=== PATIENT | male | born 1965 | race Caucasian/White ===

== ENCOUNTER 2017-05-26 21:37 | Observation (INO) | payer OTHER ==
[~2017-05-26] VITALS: Ht 180.3 cm; Wt 109.8 kg
[~2017-05-26 21:37] MED LIST: ALPR1 PO; Desyrel150 MG PO; Methadone In10 MG/ML; NARCAN4 MG INH
[2017-05-26 22:13] LABS: Source, Urine Clean Catch
[2017-05-26 22:17] LABS: Bilirubin, Urine Neg (Neg); Blood, Urine Neg (Neg); Glucose Qualitative, Urine Neg (Neg); Ketones, Urine Neg (Neg); Leukocyte Esterase, Urine Neg (Neg); Nitrite, Urine Neg (Neg); Protein, Urine Neg (Neg); Specific Gravity, Urine 1.005 (1.003-1.022); Urobilinogen, Urine NORM (Normal)
[2017-05-26 22:19] LABS: Appearance, Urine Clear (Clear); Color, Urine Yellow (P-Yellow)
[2017-05-26 22:32] LABS: U Amphetamine Screen Not Detected; U Barbituate Screen Not Detected; U Benzodiazapine Screen DETECTED; U Buprenorphine Screen Not Detected; U Cannabinoids Screen Not Detected; U Cocaine Screen Not Detected; U Methadone Screen Not Detected; U Methamphetamine Screen Not Detected; U Opiates Screen Not Detected; U Oxycodone Screen Not Detected; U Phencyclidine Screen Not Detected; U Propoxyphene Screen Not Detected
[2017-05-26 22:41] LABS: BASOPHILS ABSOLUTE AUTO 0.02 K/mm3 (0.00-0.23); BASOPHILS PERCENT AUTO 0 % (0-2); EOSINOPHILS ABSOLUTE AUTO 0.32 K/mm3 (0.00-0.68); EOSINOPHILS PERCENT AUTO 4 % (0-6); Hematocrit 42.9 % (37.0-53.0); Hemoglobin 14.5 g/dL (13.5-17.5); IMMATURE GRAN ABSOLUTE AUTO 0.03 K/mm3 (0.00-0.10); IMMATURE GRAN PERCENT AUTO 0 % (0-1); LYMPHOCYTES ABSOLUTE AUTO 2.21 K/mm3 (0.84-5.20); LYMPHOCYTES PERCENT AUTO 28 % (21-46); MONOCYTES ABSOLUTE AUTO 0.83 K/mm3 (0.16-1.47); MONOCYTES PERCENT AUTO 11 % (4-13); Mean Corpuscular HGB 31.4 pg (26.0-34.0); Mean Corpuscular HGB Conc 33.8 g/dL (31.5-36.5); Mean Platelet Volume 10.8 fL (9.1-12.4); NEUTROPHILS ABSOLUTE AUTO 4.44 K/mm3 (1.96-9.15); NEUTROPHILS PERCENT AUTO 56 % (41-73); Platelet Count 256 K/mm3 (150-400); RDW Coefficient Variation 13.8 % (11.7-14.2); RDW Standard Deviation 47.4 fL (35.1-46.3); Red Blood Cell Count 4.62 M/mm3 (4.30-5.90); White Blood Cell Count 7.85 K/mm3 (4.00-11.30)
[2017-05-26 22:42] LABS: Mean Corpuscular Volume 93 fL (80-100)
[2017-05-26 23:17] LABS: Alanine Aminotransfer (ALT/SGP 104 U/L (12-78); Albumin, Blood 3.2 g/dL (3.4-5.0); Albumin/Globulin Ratio 0.7 (0.8-1.8); Alk Phos 71 U/L (50-136); Anion Gap 10 mmol/L (6-16); Aspartate Aminotrans (AST/SGOT 48 U/L (12-37); Bilirubin, Total 0.4 mg/dL (0.1-1.0); Blood Urea Nitrogen 11 mg/dL (8-24); Bun/Creatinine Ratio 11.7 (12.0-20.0); CO2, Blood 25 mmol/L (21-32); Calcium, Blood 9.2 mg/dL (8.5-10.1); Chloride, Blood 103 mmol/L (98-108); Creatinine, Blood 0.94 mg/dL (0.60-1.20); Ethanol (Alcohol), Blood, Med 61 mg/dL; Globulin, Blood 4.9 g/dL (2.2-4.0); Glomerular Filtration Rate >60 (60-); Glucose, Blood 81 mg/dL (70-99); Potassium, Blood 3.8 mmol/L (3.5-5.5); Salicylate <1.7 mg/dL (2.8-20.0); Sodium, Blood 138 mmol/L (136-145); Total Protein, Blood 8.1 g/dL (6.4-8.2)
[2017-05-26 23:27] LABS: Acetaminophen, Random <2.0 ug/mL (10.0-30.0)
== END 2017-05-28 10:06 | disposition home or self-care (01) ==
LOC: ER 21:37 → EOR 21:38
PROVIDERS: Emergency Medicine
DX: T42.4X2A Poisoning by benzodiazepines, intentional self-harm, initial encounter (principal); Z88.8 Allergy status to other drugs, medicaments and biological substances; Z86.73 Personal history of transient ischemic attack (TIA), and cerebral infarction without residual deficits; Z79.891 Long term (current) use of opiate analgesic; Z79.899 Other long term (current) drug therapy
CPT/HCPCS: 36415; 80053; 81003; 85025; 93005; 93010; 96360; 96372; 99285; G0378; G0480; J1200; J1630; J7030

== ENCOUNTER → 2017-06-18 | Outpatient (CLI) | payer OTHER ==
[~2017-06-18] MED LIST changes: +CLON.2 PO
[2017-06-18 16:52] LABS: BASOPHILS ABSOLUTE AUTO 0.04 K/mm3 (0.00-0.23); BASOPHILS PERCENT AUTO 1 % (0-2); EOSINOPHILS PERCENT AUTO 9 % (0-6); Hematocrit 41.2 % (37.0-53.0); Hemoglobin 13.6 g/dL (13.5-17.5); IMMATURE GRAN ABSOLUTE AUTO 0.01 K/mm3 (0.00-0.10); IMMATURE GRAN PERCENT AUTO 0 % (0-1); LYMPHOCYTES ABSOLUTE AUTO 2.02 K/mm3 (0.84-5.20); LYMPHOCYTES PERCENT AUTO 29 % (21-46); MONOCYTES ABSOLUTE AUTO 0.96 K/mm3 (0.16-1.47); MONOCYTES PERCENT AUTO 14 % (4-13); Mean Corpuscular HGB 30.8 pg (26.0-34.0); Mean Corpuscular Volume 93 fL (80-100); Mean Platelet Volume 10.8 fL (9.1-12.4); NEUTROPHILS ABSOLUTE AUTO 3.23 K/mm3 (1.96-9.15); NEUTROPHILS PERCENT AUTO 47 % (41-73); Platelet Count 190 K/mm3 (150-400); RDW Coefficient Variation 13.7 % (11.7-14.2); RDW Standard Deviation 47.2 fL (35.1-46.3); Red Blood Cell Count 4.42 M/mm3 (4.30-5.90); White Blood Cell Count 6.86 K/mm3 (4.00-11.30)
[2017-06-18 17:03] LABS: Alanine Aminotransfer (ALT/SGP 220 U/L (12-78); Albumin, Blood 2.9 g/dL (3.4-5.0); Albumin/Globulin Ratio 0.6 (0.8-1.8); Alk Phos 95 U/L (40-126); Anion Gap 7 mmol/L (6-16); Aspartate Aminotrans (AST/SGOT 221 U/L (12-37); Bilirubin, Total 0.4 mg/dL (0.1-1.0); Blood Urea Nitrogen 12 mg/dL (8-24); Bun/Creatinine Ratio 11.7 (12.0-20.0); CO2, Blood 29 mmol/L (21-32); Calcium, Blood 8.8 mg/dL (8.5-10.1); Chloride, Blood 102 mmol/L (98-108); Creatinine, Blood 1.03 mg/dL (0.60-1.20); Globulin, Blood 5.1 g/dL (2.2-4.0); Glomerular Filtration Rate >60 (60-); Glucose, Blood 96 mg/dL (70-99); Potassium, Blood 3.7 mmol/L (3.5-5.5); Sodium, Blood 138 mmol/L (136-145)
[2017-06-18 17:05] LABS: Troponin I <0.017 ng/mL (0.000-0.040)
== END | disposition home or self-care (01) ==
LOC: LAB EV 16:45 → LAB SHORT 16:45
PROVIDERS: Physician Assistant
DX: R07.9 Chest pain, unspecified (principal)
CPT/HCPCS: 80053; 83880; 84484; 85025; 85379

== ENCOUNTER 2017-06-19 14:09 | Emergency (ER) | payer OTHER ==
[~2017-06-19] VITALS: Ht 180.3 cm; Wt 68.0 kg
[~2017-06-19 14:09] MED LIST changes: -CLON.2 PO
[2017-06-19] MEDS ORDERED: CLON.2 PO (17:28)
== END 2017-06-19 18:41 | disposition left against medical advice (07) ==
LOC: ER 14:09
DX: R07.9 Chest pain, unspecified (principal); F17.200 Nicotine dependence, unspecified, uncomplicated; Z88.6 Allergy status to analgesic agent; Z79.899 Other long term (current) drug therapy; Z86.73 Personal history of transient ischemic attack (TIA), and cerebral infarction without residual deficits; Z86.718 Personal history of other venous thrombosis and embolism
CPT/HCPCS: 93005; 93010; 99283

== ENCOUNTER → 2017-11-15 | Outpatient (CLI) | payer OTHER ==
[~2017-11-15] MED LIST changes: +CLON.2 PO
[2017-11-15 10:32] LABS: U Amphetamine Screen Not Detected; U Barbituate Screen Not Detected; U Benzodiazapine Screen Not Detected; U Buprenorphine Screen DETECTED; U Cannabinoids Screen Not Detected; U Cocaine Screen Not Detected; U Methadone Screen Not Detected; U Methamphetamine Screen Not Detected; U Opiates Screen Not Detected; U Oxycodone Screen Not Detected; U Phencyclidine Screen Not Detected; U Propoxyphene Screen Not Detected
== END ==
LOC: LAB 09:24 → LAB SHORT 09:24
PROVIDERS: Psychiatry & Neurology Psychiatry
DX: Z51.81 Encounter for therapeutic drug level monitoring (principal); Z79.899 Other long term (current) drug therapy

== ENCOUNTER → 2018-08-18 | Outpatient (CLI) | payer OTHER ==
[2018-08-18 16:57] LABS: U Amphetamine Screen DETECTED; U Barbituate Screen Not Detected; U Benzodiazapine Screen DETECTED; U Buprenorphine Screen DETECTED; U Cannabinoids Screen Not Detected; U Cocaine Screen Not Detected; U Methadone Screen Not Detected; U Methamphetamine Screen Not Detected; U Opiates Screen Not Detected; U Oxycodone Screen Not Detected; U Phencyclidine Screen Not Detected; U Propoxyphene Screen Not Detected
== END | disposition home or self-care (01) ==
LOC: LAB 16:22 → LAB SHORT 16:22
PROVIDERS: Psychiatry & Neurology Psychiatry
DX: Z51.81 Encounter for therapeutic drug level monitoring (principal); Z79.899 Other long term (current) drug therapy

== ENCOUNTER → 2019-01-10 | Outpatient (CLI) | payer OTHER ==
[2019-01-10 17:41] LABS: U Amphetamine Screen DETECTED; U Barbituate Screen Not Detected; U Benzodiazapine Screen Not Detected; U Buprenorphine Screen DETECTED; U Cannabinoids Screen Not Detected; U Cocaine Screen Not Detected; U Methadone Screen Not Detected; U Methamphetamine Screen Not Detected; U Opiates Screen Not Detected; U Oxycodone Screen Not Detected; U Phencyclidine Screen Not Detected; U Propoxyphene Screen Not Detected
== END | disposition home or self-care (01) ==
LOC: LAB SHORT 16:44 → LAB 16:44
PROVIDERS: Psychiatry & Neurology Psychiatry
DX: Z51.81 Encounter for therapeutic drug level monitoring (principal); F90.2 Attention-deficit hyperactivity disorder, combined type; Z79.899 Other long term (current) drug therapy
CPT/HCPCS: G0480

== ENCOUNTER 2019-05-30 11:09 | Day surgery (SDC) | payer OTHER ==
[~2019-05-30] VITALS: Ht 180.3 cm; Wt 136.6 kg
[~2019-05-30 11:09] MED LIST changes: +Adderall 20 MG20 MG PO; +CLON1 PO; +Catapres0.2 MG PO; +NARCAN4 MG; +NEURONTIN300 MG PO; +OLAN10 PO; +Promethazine HC50 M1 PO; +TRAZ150T57 PO; +ZOLOFT25 MG PO
== END 2019-05-30 14:10 | disposition home or self-care (01) ==
LOC: ORSCSDS 11:09
PROVIDERS: Internal Medicine Gastroenterology
PROC: 0DJD8ZZ Inspection of Lower Intestinal Tract, Via Natural or Artificial Opening Endoscopic (ICD-10-PCS; principal; 2019-05-30 12:00)
DX: Z12.11 Encounter for screening for malignant neoplasm of colon (principal); Z86.010 Personal history of colon polyps; K64.8 Other hemorrhoids; D18.1 Lymphangioma, any site; F17.210 Nicotine dependence, cigarettes, uncomplicated; B19.20 Unspecified viral hepatitis C without hepatic coma; Z86.73 Personal history of transient ischemic attack (TIA), and cerebral infarction without residual deficits; G40.909 Epilepsy, unspecified, not intractable, without status epilepticus; Z79.899 Other long term (current) drug therapy; E66.01 Morbid (severe) obesity due to excess calories; Z68.41 Body mass index [BMI] 40.0-44.9, adult; Z86.718 Personal history of other venous thrombosis and embolism
CPT/HCPCS: J2250; J2704; J7120

== ENCOUNTER → 2019-06-20 | Outpatient (CLI) | payer OTHER ==
[2019-06-20 18:57] LABS: U Amphetamine Screen Not Detected; U Barbituate Screen Not Detected; U Benzodiazapine Screen Not Detected; U Buprenorphine Screen DETECTED; U Cannabinoids Screen Not Detected; U Cocaine Screen Not Detected; U Methadone Screen Not Detected; U Methamphetamine Screen Not Detected; U Opiates Screen Not Detected; U Oxycodone Screen Not Detected; U Phencyclidine Screen Not Detected; U Propoxyphene Screen Not Detected
== END | disposition home or self-care (01) ==
LOC: LAB SHORT 16:10 → LAB 16:10
PROVIDERS: Psychiatry & Neurology Psychiatry
DX: Z51.81 Encounter for therapeutic drug level monitoring (principal); Z79.899 Other long term (current) drug therapy

== ENCOUNTER 2019-08-27 19:25 | Emergency (ER) | payer OTHER ==
[~2019-08-27] VITALS: Ht 180.3 cm; Wt 112.0 kg
[2019-08-27] MEDS ORDERED: LIDO700A20 TOP (20:43)
== END 2019-08-27 20:52 | disposition home or self-care (01) ==
LOC: ER 19:25
DX: S30.0XXA Contusion of lower back and pelvis, initial encounter (principal); I10 Essential (primary) hypertension; F17.210 Nicotine dependence, cigarettes, uncomplicated; Z88.6 Allergy status to analgesic agent; Z91.041 Radiographic dye allergy status; Z79.899 Other long term (current) drug therapy; Z86.718 Personal history of other venous thrombosis and embolism; Z86.73 Personal history of transient ischemic attack (TIA), and cerebral infarction without residual deficits; W22.8XXA Striking against or struck by other objects, initial encounter
CPT/HCPCS: 72100; 99283-25

== ENCOUNTER → 2019-09-14 | Outpatient (CLI) | payer OTHER ==
[~2019-09-14] MED LIST changes: +LIDO700A20 TOP
[2019-09-14 11:06] LABS: BASOPHILS ABSOLUTE AUTO 0.04 K/mm3 (0.00-0.23); BASOPHILS PERCENT AUTO 1 % (0-2); EOSINOPHILS ABSOLUTE AUTO 0.02 K/mm3 (0.00-0.68); EOSINOPHILS PERCENT AUTO 0 % (0-6); Hematocrit 47.8 % (37.0-53.0); Hemoglobin 16.1 g/dL (13.5-17.5); IMMATURE GRAN ABSOLUTE AUTO 0.04 K/mm3 (0.00-0.10); IMMATURE GRAN PERCENT AUTO 1 % (0-1); LYMPHOCYTES ABSOLUTE AUTO 1.45 K/mm3 (0.84-5.20); LYMPHOCYTES PERCENT AUTO 20 % (21-46); MONOCYTES ABSOLUTE AUTO 0.53 K/mm3 (0.16-1.47); MONOCYTES PERCENT AUTO 7 % (4-13); Mean Corpuscular HGB 33.9 pg (26.0-34.0); Mean Corpuscular HGB Conc 33.7 g/dL (31.5-36.5); Mean Corpuscular Volume 101 fL (80-100); NEUTROPHILS ABSOLUTE AUTO 5.23 K/mm3 (1.96-9.15); NEUTROPHILS PERCENT AUTO 72 % (41-73); RDW Coefficient Variation 14.9 % (11.7-14.2); RDW Standard Deviation 55.9 fL (35.1-46.3); Red Blood Cell Count 4.75 M/mm3 (4.30-5.90); White Blood Cell Count 7.31 K/mm3 (4.00-11.30)
[2019-09-14 11:18] LABS: Alanine Aminotransfer (ALT/SGP 81 U/L (12-78); Albumin, Blood 3.3 g/dL (3.4-5.0); Albumin/Globulin Ratio 0.7 (0.8-1.8); Alk Phos 153 U/L (40-126); Anion Gap 8 mmol/L (6-16); Aspartate Aminotrans (AST/SGOT 88 U/L (12-37); Bilirubin, Total 0.6 mg/dL (0.1-1.0); Blood Urea Nitrogen 19 mg/dL (8-24); CO2, Blood 27 mmol/L (21-32); Calcium, Blood 8.7 mg/dL (8.5-10.1); Chloride, Blood 103 mmol/L (98-108); Creatinine, Blood 0.73 mg/dL (0.60-1.20); Globulin, Blood 4.6 g/dL (2.2-4.0); Glomerular Filtration Rate >60 (60-); Glucose, Blood 115 mg/dL (70-99); Potassium, Blood 5.2 mmol/L (3.5-5.5); Sodium, Blood 138 mmol/L (136-145); Total Protein, Blood 7.9 g/dL (6.4-8.2)
[2019-09-14 11:53] LABS: Platelet Count 130 K/mm3 (150-400)
== END ==
LOC: LAB EV 10:59 → LAB SHORT 10:59
PROVIDERS: General Practice
DX: M79.89 Other specified soft tissue disorders (principal)
CPT/HCPCS: 80053; 83880; 85025

== ENCOUNTER 2020-01-18 17:35 | Inpatient (IN) | payer OTHER ==
[~2020-01-18] VITALS: Ht 180.3 cm; Wt 126.1 kg
[~2020-01-18 17:35] MED LIST changes: -CLON1 PO
[2020-01-18 19:48] LABS: BASOPHILS ABSOLUTE AUTO 0.06 K/mm3 (0.00-0.23); BASOPHILS PERCENT AUTO 1 % (0-2); EOSINOPHILS PERCENT AUTO 1 % (0-6); Hematocrit 43.5 % (37.0-53.0); Hemoglobin 14.4 g/dL (13.5-17.5); IMMATURE GRAN ABSOLUTE AUTO 0.03 K/mm3 (0.00-0.10); IMMATURE GRAN PERCENT AUTO 0 % (0-1); LYMPHOCYTES ABSOLUTE AUTO 2.48 K/mm3 (0.84-5.20); LYMPHOCYTES PERCENT AUTO 29 % (21-46); MONOCYTES PERCENT AUTO 9 % (4-13); Mean Corpuscular HGB 33.1 pg (26.0-34.0); Mean Corpuscular HGB Conc 33.1 g/dL (31.5-36.5); Mean Corpuscular Volume 100 fL (80-100); Mean Platelet Volume 11.8 fL (9.1-12.4); NEUTROPHILS ABSOLUTE AUTO 5.21 K/mm3 (1.96-9.15); NEUTROPHILS PERCENT AUTO 60 % (41-73); Platelet Count 85 K/mm3 (150-400); RDW Coefficient Variation 15.5 % (11.7-14.2); RDW Standard Deviation 58.4 fL (35.1-46.3); Red Blood Cell Count 4.35 M/mm3 (4.30-5.90); White Blood Cell Count 8.68 K/mm3 (4.00-11.30)
[2020-01-18 19:50] LABS: Calcium, Ionized (POC) 1.17 mmol/L (1.10-1.46); Chloride (POC) 99 mmol/L (98-108); Creatinine (POC) 0.8 mg/dL (0.8-1.3); Glucose (ISTAT POC) 191 mg/dL (70-99); Hemoglobin (POC) 15.6 g/dL (13.5-17.5); Potassium (POC) 4.2 mmol/L (3.5-5.5); Sodium (POC) 139 mmol/L (135-148); Total CO2 (POC) 30 mmol/L (21-32)
[2020-01-18 19:59] LABS: International Normalized Ratio 1.14; Prothrombin Time Results 12.1 Sec (9.7-11.5)
[2020-01-18 20:02] LABS: Alanine Aminotransfer (ALT/SGP 134 U/L (12-78); Albumin, Blood 2.7 g/dL (3.4-5.0); Albumin/Globulin Ratio 0.5 (0.8-1.8); Alk Phos 152 U/L (50-136); Anion Gap 1 mmol/L (6-16); Aspartate Aminotrans (AST/SGOT 141 U/L (12-37); Bilirubin, Total 0.8 mg/dL (0.1-1.0); Blood Urea Nitrogen 15 mg/dL (8-24); Bun/Creatinine Ratio 20.4 (12.0-20.0); CO2, Blood 34 mmol/L (21-32); Calcium, Blood 8.6 mg/dL (8.5-10.1); Chloride, Blood 104 mmol/L (98-108); Creatinine, Blood 0.74 mg/dL (0.60-1.20); Ethanol (Alcohol), Blood, Med <3 mg/dL; Globulin, Blood 5.1 g/dL (2.2-4.0); Glomerular Filtration Rate >60 (60-); Glucose, Blood 196 mg/dL (70-99); Potassium, Blood 4.2 mmol/L (3.5-5.5); Sodium, Blood 139 mmol/L (136-145); Total Protein, Blood 7.8 g/dL (6.4-8.2)
[2020-01-18 20:31] LABS: PCO2 Arterial 55.9 mmHg (35-45); PO2 Arterial 93.7 mmHg (80-100); pH Blood Arterial 7.38 (7.35-7.45)
[2020-01-18] MEDS ORDERED: CLON1 PO (20:48)
[2020-01-18] MEDS ORDERED: CLON.5 PO (20:49)
[2020-01-18 21:29] LABS: U Amphetamine Screen DETECTED; U Barbituate Screen Not Detected; U Benzodiazapine Screen Not Detected; U Buprenorphine Screen DETECTED; U Cannabinoids Screen Not Detected; U Cocaine Screen Not Detected; U Methadone Screen Not Detected; U Methamphetamine Screen Not Detected; U Opiates Screen Not Detected; U Oxycodone Screen Not Detected; U Phencyclidine Screen Not Detected; U Propoxyphene Screen Not Detected
[2020-01-18 21:35] LABS: Salicylate <1.7 mg/dL (2.8-20.0)
[2020-01-18 21:37] LABS: Acetaminophen, Random <2.0 ug/mL (10.0-30.0)
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
--- NOTE | 2020-01-18 23:20 | NUR ---
DR EID AT BEDSIDE, NOTIFIED OF PT'S BP, NOTIFIED OF RASH TO LEFT GROIN, HOME RX DISCUSSED FOLLOWS: AMPHETAMINE/DEXTROAMPHETAMINE INSTRUCTIONS STATE 1 TAB PO TID FILLED ON 12/30/2019, TOTAL QUANTITY 90 TABLETS, OF WHICH ONLY 2 REMAIN IN CONTAINER WELL A 2 INCH PIECE OF PLASTIC STRAW. APPROXIMATELY 33 TABLETS MISSING CLONIDINE 0.2 MG TAB, INSTRUCTIONS STATE 1 TAB BID, LAST FILLED ON 12/31/2019 TOTAL QUANTITY 60 TABLETS, NONE REMAIN IN CONTAINER. APPROXIMATELY 24 TABLETS MISSING. PROMETHAZINE 50 MG TAB, INSTRUCTIONS STATE 1 TAB DAILY NEEDED FOR NAUSEA, LAST FILLED ON 01/02/2020 TOTAL QUANTITY 30, NONE REMAIN IN CONTAINER. APPROXIMATELY 14 TABLETS MISSING. GABAPENTIN 300 MG CAPSULES, INSTRUCTIONS STATE 3 CAPSULES TWICE DAILY, LAST FILLED ON 12/15/2019 TOTAL QUANTITY 180, NONE REMAIN IN CONTAINER HOWEVER THIS QUANTITY WOULD HAVE BEEN COMPLETE ON 01/14/2020. BUPRENORPHINE/NALOXONE 2-0.5 TABLETS, INSTRUCTIONS STATE ONE TABLET SUBLINGUAL TWICE DAILY, LAST FILLED ON 01/08/2020 TOTAL QUANTITY 28, 5 LEFT IN CONTAINER. APPROXIMATELY 3 TABLETS MISSING. BUPRENORPHINE/NALOXONE 8-2 TABLETS, INSTRUCTIONS STATE ONE TABLE SUBLINGUAL TWICE DAILY. LAST FILLED ON 01/08/2020, TOTAL QUANTITY 28 TABLETS, NONE LEFT IN CONTAINER, APPROXIMATELY 8 TABLETS MISSING. PLAN TO NOTIFY POISON CONTROL DISCUSSED WITH DR EID.
--- NOTE | 2020-01-18 23:45 | NUR ---
OFFICERS FROM [employer] ARRIVE TO PT'S ROOM WITH WARRANT FOR PT BLOOD AND URINE. COPY OF WARRANT TO CHART, YARN EXAMINER SKEINS RAJI FRANCIS AND NURSING CARDIOLOGY CLINICAL NURSE SPECIALIST LAURA MUNOZ NOTIFIED. URINE PROVIDED FROM EDWARDS CATHETER. LAB TO BEDSIDE FOR BLOOD DRAW. PT REMAINS NONRESPONSIVE AT THIS TIME. OFFICERS COLLECT PT'S EMPTY RX BOTTLES FOR CLONIDINE, PROMETHAZINE, GABAPENTIN, BUPRENORPHINE/NALOXONE 8-2, AND RX CONTAINERS OF BUPRENORPHINE/NALOXONE 2-0.5 OF WHICH THERE ARE 5 TABLETS LEFT IN CONTAINER, AND ADDERALL 20 MG OF WHICH THERE ARE 2 TABLETS LEFT IN CONTAINER.
--- NOTE | 2020-01-19 00:40 | NUR ---
CONTACTED POISON CONTROL, DISCUSSED PT RX DISCREPANCIES WELL PT HX OF MULTIPLE SUICIDE ATTEMPTS BY OVERDOSE. NO CHANGES TO PLAN OF CARE RECOMMENDED AT THIS TIME, POISON CONTROL WILL FOLLOW UP IN AM.
[2020-01-19] MEDS ORDERED: SUBOXONE 8 MG-1 EACH SL (01:04)
[2020-01-19] MEDS ORDERED: SUBOXONE 8 MG-1 EACH (01:05)
[2020-01-19] MEDS ORDERED: AMPDEX10CR PO (01:05)
[2020-01-19] MEDS ORDERED: Catapres0.2 MG PO (01:06)
[2020-01-19] MEDS ORDERED: PROM25 PO (01:06)
[2020-01-19] MEDS ORDERED: GABA300 PO (01:07)
[2020-01-19 04:09] LABS: BASOPHILS ABSOLUTE AUTO 0.02 K/mm3 (0.00-0.23); BASOPHILS PERCENT AUTO 0 % (0-2); EOSINOPHILS PERCENT AUTO 0 % (0-6); Hematocrit 47.5 % (37.0-53.0); Hemoglobin 15.9 g/dL (13.5-17.5); IMMATURE GRAN ABSOLUTE AUTO 0.02 K/mm3 (0.00-0.10); IMMATURE GRAN PERCENT AUTO 0 % (0-1); LYMPHOCYTES ABSOLUTE AUTO 0.92 K/mm3 (0.84-5.20); LYMPHOCYTES PERCENT AUTO 11 % (21-46); MONOCYTES ABSOLUTE AUTO 0.04 K/mm3 (0.16-1.47); MONOCYTES PERCENT AUTO 1 % (4-13); Mean Corpuscular HGB 33.1 pg (26.0-34.0); Mean Corpuscular HGB Conc 33.5 g/dL (31.5-36.5); Mean Corpuscular Volume 99 fL (80-100); Mean Platelet Volume 11.9 fL (9.1-12.4); NEUTROPHILS ABSOLUTE AUTO 7.06 K/mm3 (1.96-9.15); NEUTROPHILS PERCENT AUTO 88 % (41-73); Platelet Count 90 K/mm3 (150-400); RDW Coefficient Variation 15.2 % (11.7-14.2); RDW Standard Deviation 56.5 fL (35.1-46.3); Red Blood Cell Count 4.81 M/mm3 (4.30-5.90); White Blood Cell Count 8.06 K/mm3 (4.00-11.30)
[2020-01-19 04:26] LABS: Alanine Aminotransfer (ALT/SGP 146 U/L (12-78); Albumin, Blood 2.9 g/dL (3.4-5.0); Albumin/Globulin Ratio 0.5 (0.8-1.8); Alk Phos 154 U/L (50-136); Anion Gap 5 mmol/L (6-16); Aspartate Aminotrans (AST/SGOT 161 U/L (12-37); Bilirubin, Total 0.9 mg/dL (0.1-1.0); Blood Urea Nitrogen 16 mg/dL (8-24); Bun/Creatinine Ratio 20.9 (12.0-20.0); CO2, Blood 28 mmol/L (21-32); Calcium, Blood 8.9 mg/dL (8.5-10.1); Chloride, Blood 105 mmol/L (98-108); Creatinine, Blood 0.76 mg/dL (0.60-1.20); Globulin, Blood 5.4 g/dL (2.2-4.0); Glomerular Filtration Rate >60 (60-); Glucose, Blood 275 mg/dL (70-99); Potassium, Blood 3.9 mmol/L (3.5-5.5); Sodium, Blood 138 mmol/L (136-145); Total Protein, Blood 8.3 g/dL (6.4-8.2)
--- NOTE | 2020-01-19 05:45 | NUR ---
PT REMAINS UNRESPONSIVE THIS AM, PROPOFOL HAS BEEN TITRATED DOWN THROUGHOUT SHIFT TO 10 MCG/KG/MIN OF THIS TIME, PUPILS REMAIN AT 2, EQUAL AND REACTIVE. VENT SETTINGS REMAIN AC 14, TV 500, PEEP 5, FIO2 HAS BEEN TITRATED DOWN THROUGHOUT SHIFT TO 40%, SATS MAINTAINING MID 90S, RESP RATE 18-20, CRACKLES IN RIGHT BASE ON INITIAL ASSESSMENT, CLEAR THROUGHOUT AT 0400 ASSESSMENT. SINUS RHYTHM CONTINUES WITH INTERMITTENT PVCS, RATE HIGH 50S TO LOW 60S, PRESSURE IMPROVED FOLLOWING HYDRALAZINE ADMIN X 1. POISON CONTROL CONTINUES TO FOLLOW DUE TO HIGH POSSIBILITY OF OVERDOSE. MINIMAL OUTPUT FROM OG TUBE, ABD REMAINS SOFT WITH HYPOACTIVE BOWEL TONES. TEMP PROBE EDWARDS REMAINS IN PLACE DRAINING CLEAR SAIRA URINE TO GRAVITY.
--- NOTE | 2020-01-19 07:30 | NUR ---
ASSUMED CARE RECIEVED REPORT FROM SALVADOR LARSON. PT IS IN BED INTUBATED WITH 8.0 ETT, 27 AT THE LIP. VENT SETTING ARE AC 14/500/5/40%. SEDATED WITH PROPOFOL AT 10 MCG/KG/MIN, AND HAS NS INFUSING AT 75 ML/HR. HE HAS AN OG TUBE HOOKED UP TO LIS, AND A PATENT EDWARDS DRAINING YELLOW/SAIRA URINE. HE HAS A CVC IN HIS RIGHT IJ, AND THE SITE LOOKS CDI. HE IS TOLERATING THE VENT WELL. BED IS LOW AND LOCKED. NO FAMILY AT BEDSIDE.
--- NOTE | 2020-01-19 10:19 | NUR ---
PT UNABLE TO ANSWER QUESTIONS, SO MY SUICIDE REASSESSMENT IS POTENTIALLY NOT ACCURATE AT THE MOMENT. THE INTERVENTION FORCES YOU TO ANSWER THE QUESTION WITH A DEFINITIVE YES OR NO, BUT MY PT IS CURRENTLY INTUBATED AND SEDATED AND UNABLE TO ADEQUETLY COMMUNICATE WITH ME. SUICIDE REASSESSMENT WILL HAVE TO BE HELD OFF UNTIL THE PATIENT CAN COMMUNICATE WITH US.
--- NOTE | 2020-01-19 10:56 | NUR ---
POISON CONTROL PC RECOMMENDS RE-CHECKING LFT'S AT 1400, HOLD OFF ON NAC GTT. WILL CHECK BACK LATER FOR LAB RESULTS.
--- NOTE | 2020-01-19 11:14 | NUR ---
UPDATE/SEDATION VACATION FROM [id number] PT WAS OFF PROPOFOL. AFTER ABOUT 15 MINUTES PT STARTED TO WAKE UP, AND WAS RESPONDING TO VERBAL STIMULI, HE WAS ABLE TO SQUEEZE MY FINGERS UPON COMMAND, AND LET AGO (DELAYED RESPONSE), HE WIGGLED HIS TOES, AND OPENED HIS EYES, AGAIN UPON COMMAND. HE DID, HOWEVER, BECOME INCREASINGLY AGITATED. PT WAS PULLING ON RESTRAINTS, JERKING AROUND IN THE BED, AND TRYING REALLY HARD TO SPEAK. HE WAS COUGHING AND GAGGING ON THE TUBE. HIS RESPIRATORY RATE WENT UP IN THE 40's. AT 1100 I THEN TURNED BACK ON THE PROPOFOL TO 10 MCG/KG/MIN. IT TOOK AROUND 10-14 MINUTES BUT THE PT IS NOW CALM FROM SEDATION, BUT IS STILL AROUSABLE TO VERBAL/NOXIOUS STIMULI. IT IS DIFFICULT FOR HIM TO OPEN HIS EYES WITH THE SEDATION. WHEN HE WAS FIGHTING THE VENT AND RESTRAINTS, I WAS TALKING TO HIM AND LETTING HIM KNOW WHAT HAD HAPPENED, WHERE HE WAS, WHAT WE WERE DOING, AND THAT HE WAS CURRENTLY DOING OKAY. UNKNOWN IF HE WAS LISTENING TO WHAT I WAS TRYING TO SAY. BED LOW AND LOCKED. CALL LIGHT WITHIN REACH.
[2020-01-19 11:35] LABS: Creatine Kinase MB 1.8 ng/mL (0.0-3.6); Creatine Kinase MB Index 2.7 (0.0-4.0)
[2020-01-19 14:34] LABS: Albumin, Blood 2.5 g/dL (3.4-5.0); Albumin/Globulin Ratio 0.5 (0.8-1.8); Bilirubin, Direct 0.4 mg/dL (0.0-0.3); Bilirubin, Indirect 0.3 mg/dL (0.1-0.7); Bilirubin, Total 0.7 mg/dL (0.1-1.0); Globulin, Blood 4.8 g/dL (2.2-4.0); Total Protein, Blood 7.3 g/dL (6.4-8.2)
--- NOTE | 2020-01-19 17:45 | NUR ---
SHIFT SUMMARY PT REMAINS INTUBATED ON SPONTANEOUS MODE REQUIRING PRESSURE SUPPORT OF 12/5, WITH 40% FIO2. PT HAS BEEN ADEQUETLY SEDATED ON PROPOFOL OF 15 MCG/KG/MIN, AND WE RECENTLY ADDED PRECEDEX AT 0.2 MCG/KG/HR. A BANANA BAG IS INFUSING AT 200 ML/HR (THE NORMAL SALINE IS ON STAND BY). HIS CVC IN HIS RIGHT IJ LOOKS WNL. HE HAS SCDs ON BILATERAL CALVES, A PATENT EDWARDS DRAINING SAIRA URINE, AND AN OG TUBE HOOKED UP TO LIS. PT STARTED SHIFT TODAY COOL, AND THEN HAD A LOW GRADE FEVER BUT NOW IS CURRENTLY 98.2 F. PT IS AROUSABLE TO LOUD VOICE WHEN SEDATED, AND NOXIOUS STIMULI, SEE PREVIOUS NOT ON SEDATION VACATION FOR MORE ACCURATE NEURO ASSESSMENT. VITALS HAVE BEEN STABLE ALL DAY, HR HAS BEEN IN THE 60s, ADEQUATE BP, AND HE MAINTAINED SATS AT 93%+. BED LOW AND LOCKED.
--- NOTE | 2020-01-19 20:00 | NUR ---
ASSUMED CARE OF PT AT 1915. REPORT RECEIVED AT BEDSIDE. PT PRESENTS IN BED. VENTED PS 12/5 WITH 40 PERCENT FIO2. PT CURRENTLY ON PRECEDEX DRIP AT 0.2 MCG'S AND PROPOFOL AT 15 MCG'S. PT DOES AWAKEN WITH TURN AND TAKES AWHILE FOR HIM TO RETURN TO RESTING. WILL REVIEW CHART AND PLAN OF CARE FOR THIS PT.
--- NOTE | 2020-01-20 | NUR ---
FULL BEDBATH DONE FOR THIS PT. DOES RESIST WITH TURNS AND CARE. INCREASED PROPOFOL TO 20 MCG'S WITH SOME IMPROVEMENT. RT WAS IN EARLIER AND OBTAINED SPUTUM SAMPLE FOR LAB. PT CONTINUES ON SAME VENT SETTINGS. WILL CONTINUE TO MONITOR PT.
--- NOTE | 2020-01-20 04:00 | NUR ---
DID INCREASE PT'S PROPOFOL TO 25 MCG'S, AND PLACE PRECEDEX ON STANDBY. AT THIS POINT, PT IS MAINTAINING SAS 3-4. WILL CONTINUE TO ASSESS. DOES AWAKEN DURING TURNS.
[2020-01-20 05:31] LABS: BASOPHILS ABSOLUTE AUTO 0.03 K/mm3 (0.00-0.23); BASOPHILS PERCENT AUTO 0 % (0-2); EOSINOPHILS ABSOLUTE AUTO 0.01 K/mm3 (0.00-0.68); EOSINOPHILS PERCENT AUTO 0 % (0-6); Hematocrit 43.9 % (37.0-53.0); Hemoglobin 14.6 g/dL (13.5-17.5); IMMATURE GRAN ABSOLUTE AUTO 0.08 K/mm3 (0.00-0.10); IMMATURE GRAN PERCENT AUTO 1 % (0-1); LYMPHOCYTES ABSOLUTE AUTO 3.05 K/mm3 (0.84-5.20); LYMPHOCYTES PERCENT AUTO 19 % (21-46); MONOCYTES ABSOLUTE AUTO 0.87 K/mm3 (0.16-1.47); MONOCYTES PERCENT AUTO 5 % (4-13); Mean Corpuscular HGB 33.3 pg (26.0-34.0); Mean Corpuscular HGB Conc 33.3 g/dL (31.5-36.5); Mean Corpuscular Volume 100 fL (80-100); NEUTROPHILS ABSOLUTE AUTO 12.45 K/mm3 (1.96-9.15); NEUTROPHILS PERCENT AUTO 75 % (41-73); Platelet Count 91 K/mm3 (150-400); RDW Coefficient Variation 15.7 % (11.7-14.2); RDW Standard Deviation 58.7 fL (35.1-46.3); Red Blood Cell Count 4.39 M/mm3 (4.30-5.90); White Blood Cell Count 16.49 K/mm3 (4.00-11.30)
[2020-01-20 06:02] LABS: Alanine Aminotransfer (ALT/SGP 97 U/L (12-78); Albumin, Blood 2.4 g/dL (3.4-5.0); Albumin/Globulin Ratio 0.5 (0.8-1.8); Alk Phos 119 U/L (50-136); Anion Gap 3 mmol/L (6-16); Aspartate Aminotrans (AST/SGOT 74 U/L (12-37); Bilirubin, Total 0.6 mg/dL (0.1-1.0); Blood Urea Nitrogen 16 mg/dL (8-24); Bun/Creatinine Ratio 22.2 (12.0-20.0); CO2, Blood 29 mmol/L (21-32); Calcium, Blood 8.3 mg/dL (8.5-10.1); Chloride, Blood 108 mmol/L (98-108); Creatinine, Blood 0.72 mg/dL (0.60-1.20); Globulin, Blood 4.8 g/dL (2.2-4.0); Glomerular Filtration Rate >60 (60-); Glucose, Blood 137 mg/dL (70-99); Magnesium, Blood 2.2 mg/dL (1.6-2.4); Phosphorus, Blood 2.6 mg/dL (2.5-4.9); Potassium, Blood 4.4 mmol/L (3.5-5.5); Sodium, Blood 140 mmol/L (136-145); Total Protein, Blood 7.2 g/dL (6.4-8.2)
--- NOTE | 2020-01-20 06:38 | NUR ---
NO CHANGES TO NOTE FROM PREVIOUS ASSESSMENT. HAVE SUCTIONED PT PER ETT SOME DURNING SHIFT WITH ONLY SMALL AMOUNT OF WHITISH SECRETIONS. WILL CONTINUE TO MONITOR PT, AND WILL REPORT OFF TO ONCOMING RN.
--- NOTE | 2020-01-20 07:51 | NUR ---
ASSUMED CARE RECIEVED REPORT FROM SALVADOR LARA. PT IS LAYING IN BED INTUBATED WITH 8.0 ETT, 27 @ LIP. VENT SETTINGS REMAIN SPONTANEOUS, WITH PRESSURE SUPPORT 12/5, FIO2 40%. PROPOFOL INFUSING AT 25 MG/KG/MIN. PT HAS PATENT EDWARDS DRAINING SAIRA/ORANGE URINE. HE HAS SCDs ON BILATERAL CALVES, AND HAS AN OG TUBE HOOKED TO LIS. BED IS LOW AND LOCKED. PT IS CALM AND SEDATED, YET MAKING ADEQUATE TIDAL VOLUMES AND MINUTE VENTILATION ON VENT.
--- NOTE | 2020-01-20 08:11 | NUR ---
PT UNABLE TO SPEAK FOR SELF AND ANSWER QUESTIONS REGARDING SUICIDAL IDEATIONS. UNABLE TO CHART AN ACCURATE ANSWER TO THE SUICIDE REASSESSMENT.
--- NOTE | 2020-01-20 12:54 | NUR ---
UPDATE PT'S HEART RATE HAS BEEN IMPROVING SINCE I HAVE TITRATED DOWN THE PRECEDEX. BP HAS BEEN STABLE TO SLIGHTLY ELEVATED, AND THE LAST HOUR PT HAS BEEN ADEQUETLY SEDATED ON 30 MCG/KG/MIN OF PROPOFOL AND 0.2 MCG/KG/HR OF PRECEDEX. TEMPERATURE HAS GONE DOWN PER MONITOR TO 95-96 RANGE (CORE TEMP FROM EDWARDS), BUT PT FEELS WARM, AND HAS A TEMPORAL TEMP OF 97.1. I PLACED WARM BLANKETS ON HIM JUST IN CASE EARLIER TODAY. POISON CONTROL FOLLOWED UP AND HAVE NO FURTHER RECOMMENDATIONS, AND WILL CHECK BACK IN TOMORROW.
--- NOTE | 2020-01-20 18:24 | NUR ---
SHIFT SUMMARY PT REMAINS ON AC14/500/5/40% VENT SETTINGS, SECOND HALF OF THE DAY PT HAS BEEN ADEQUETLY SEDATED ON PROPOFOL OF 30 MCG/KG/MIN AND NO PRECEDEX. HR IS IN THE 50s, BUT PT HAS STRONG PULSES, CAP REFIL < 3s, GOOD PLETH ON SPO2 WAVEFORM, AND WARM EXTREMETIES. STABLE BP, SPO2, AND TEMPERATURE HAS BEEN IMPROVING. PT HAS SCDs ON, HE HAS A PATENT EDWARDS DRAINING TEA COLORED URINE THAT HAS HAD SOME CLOTS IN IT - NO EVIDENCE OF BLEEDING AT THIS POINT, NO RED/PINK. PT STARTED ON ROCEPHIN TODAY. RESPIRATORY THERAPIST, [place], SAID HE SUCTIONED OUT SOME BLOODY-TINGED SPUTUM FROM ETT. OTHER THAN THAT HE HAS HAD SCANT SECRETIONS FROM [facility]. HE HAS HAD 750 ML OF DARK BROWN/GREEN DRAINAGE FROM OG TUBE (SINCE HE WAS INTUBATED ON 01/18/20), BED LOW AND LOCKED. CALL LIGHT WITHIN REACH.
--- NOTE | 2020-01-20 20:00 | NUR ---
ASSUMED CARE OF PT AT 1915. REPORT RECEIVED AT BEDSIDE. PT PRESENTS IN BED. VENTED - AC 14, Tv 500, PEEP 5, FIO2 40%. PT NOTED TO HAVE SOME HYPOTENSION. PT RESTLESS. 250 ML NORMAL SALINE BOLUS GIVEN. WHICH IMPROVES PRESSURES SOME. WILL REVIEW CHART AND PLAN OF CARE FOR THIS PT.
--- NOTE | 2020-01-20 23:00 | NUR ---
CALL MADE TO DR CASTANON EARLIER CONCERNING PT'S AGITATION AND POOR RESPONSE TO 50 MCG FENTANYL, INCREASE IN PROPOFOL, AND 2 MG VERSED. CONCERN FOR INCREASING NEED FOR SEDATION WITH DROPS IN BLOOD PRESSURES. ORDERS HAVE BEEN RECEIVED. PT'S BLOOD PRESSURES HAVE STABILIZED. INCREASE IN PROPOFOL TO 50 MCG'S AND FENTANYL PHARMACY INFORMATICS SPECIALIST STARTED AT 50 MCG'S PER HOUR BASAL. PT HAS BEEN TOLERATING VENT MUCH BETTER. HAS EARLIER TRIED TO GET HIMSELF OUT OF BED WITHOUT REGARD TO HIS OWN SAFETY OR THE FACT HE WAS INTUBATED. HAVE OPENED CURTAINS TO ROOM FULL AND LIGHTS LEFT ON SOAS TO PROVIDE BETTER VISUALIZATION OF PT. WILL CONTINUE TO MONITOR.
[2020-01-21 01:10] LABS: HBSAG SCREEN Positive (Negative); HEP A AB, IGM Negative (Negative); HEP B CORE AB, IGM Negative (Negative); HEP C VIRUS AB >11.0 (0.0-0.9)
--- NOTE | 2020-01-21 02:30 | NUR ---
HAVE NEEDED TO INCREASE SEDATION - PROPOFOL TO 50 MCG'S/HOUR SECONDARY TO PT'S POOR VENT TOLERANCE. PT HAS GOOD URINE OUTPUT AFTER ALBUMIN AND BOLUS OF NORMAL SALINE. BLOOD PRESSURES HAVE REMAINED MILDLY ELEVATED. TOLERATING TUBE FEEDING WELL. WILL CONTINUE TO MONITOR.
[2020-01-21 04:08] LABS: BASOPHILS ABSOLUTE AUTO 0.02 K/mm3 (0.00-0.23); BASOPHILS PERCENT AUTO 0 % (0-2); EOSINOPHILS ABSOLUTE AUTO 0.07 K/mm3 (0.00-0.68); EOSINOPHILS PERCENT AUTO 1 % (0-6); Hematocrit 38.7 % (37.0-53.0); Hemoglobin 12.7 g/dL (13.5-17.5); IMMATURE GRAN ABSOLUTE AUTO 0.02 K/mm3 (0.00-0.10); IMMATURE GRAN PERCENT AUTO 0 % (0-1); LYMPHOCYTES ABSOLUTE AUTO 3.08 K/mm3 (0.84-5.20); LYMPHOCYTES PERCENT AUTO 28 % (21-46); MONOCYTES ABSOLUTE AUTO 0.74 K/mm3 (0.16-1.47); MONOCYTES PERCENT AUTO 7 % (4-13); Mean Corpuscular HGB 33.2 pg (26.0-34.0); Mean Corpuscular HGB Conc 32.8 g/dL (31.5-36.5); Mean Corpuscular Volume 101 fL (80-100); Mean Platelet Volume 11.6 fL (9.1-12.4); NEUTROPHILS ABSOLUTE AUTO 7.08 K/mm3 (1.96-9.15); NEUTROPHILS PERCENT AUTO 64 % (41-73); Platelet Count 71 K/mm3 (150-400); RDW Standard Deviation 60.5 fL (35.1-46.3); Red Blood Cell Count 3.82 M/mm3 (4.30-5.90); White Blood Cell Count 11.01 K/mm3 (4.00-11.30)
[2020-01-21 04:24] LABS: Alanine Aminotransfer (ALT/SGP 67 U/L (12-78); Albumin, Blood 3.1 g/dL (3.4-5.0); Albumin/Globulin Ratio 0.9 (0.8-1.8); Alk Phos 86 U/L (50-136); Anion Gap 4 mmol/L (6-16); Aspartate Aminotrans (AST/SGOT 61 U/L (12-37); Bilirubin, Total 0.7 mg/dL (0.1-1.0); Blood Urea Nitrogen 16 mg/dL (8-24); Bun/Creatinine Ratio 19.8 (12.0-20.0); CO2, Blood 29 mmol/L (21-32); Calcium, Blood 7.9 mg/dL (8.5-10.1); Chloride, Blood 111 mmol/L (98-108); Creatinine, Blood 0.81 mg/dL (0.60-1.20); Globulin, Blood 3.6 g/dL (2.2-4.0); Glomerular Filtration Rate >60 (60-); Glucose, Blood 123 mg/dL (70-99); Magnesium, Blood 2.1 mg/dL (1.6-2.4); Phosphorus, Blood 2.4 mg/dL (2.5-4.9); Potassium, Blood 3.9 mmol/L (3.5-5.5); Sodium, Blood 144 mmol/L (136-145); Total Protein, Blood 6.7 g/dL (6.4-8.2)
--- NOTE | 2020-01-21 04:50 | NUR ---
SEDATION VACATION BEGUN AND PT BECOMES VERY AGITATED AND ATTEMPTING TO GET OUT OF BED. WAS VERY UNDIRECTABLE. PT REQUIRED SEDATION TO BE RESTARTED. HAVE NEEDED TO INCREASE PROPOFOL TO 60 MCG'S. PT CURRENTLY WITH SAS 3-4. NO LONGER ATTEMPTING TO GET HIS LEGS OUT OF BED. NO S/S PAIN OR DISTRESS. WILL CONTINUE TO MONITOR PT, AND WILL REPORT OFF TO ONCOMING RN.
--- NOTE | 2020-01-21 07:26 | NUR ---
ASSUMED CARE RECIEVED REPORT FROM SALVADOR LARA AT BEDSIDE. PT INTUBATED WITH 8.0 ETT, 27 AT LIP. VENT SETTINGS ARE AC 14/500/5/40%. PROPOFOL IS INFUSING AT 60 MCG/KG/MIN, AND PT HAS NS INFUSING AT 75 ML/HR. BP IS STABLE AT 139/81, 98. HE IS IN SINUS RHYTHM, RATE IN THE 70's. AFEBRILE, SATS AT 93%. SCDs ON BILATERAL CALVES. SWB RESTRAINTS SECURED TO PT AND BED. EDWARDS PATENT DRAINING YELLOW URINE. VITAL HIGH PROTEIN, TUBE FEEDING, INFUSING VIA OG TUBE AT GOAL RATE OF 40 ML/HR WITH 30 ML Q4H WATER FLUSHES. HE ALSO HAS A FENTANYL REIMBURSEMENT AUDITOR PUMP INFUSING AT 50 MCG/HR. BED LOW AND LOCKED. CALL LIGHT WITHIN REACH.
--- NOTE | 2020-01-21 10:02 | NUR ---
UPDATE PT APPEARED TO HAVE AN INTERMITTENT CUFF LEAK IN ETT. RT CALLED AND CAME TO ROOM AND FIXED IT. BANANA BAG IS NOW INFUSING AT 200 ML/HR, NORMAL SALINE AT 75 ML/HR ON HOLD FOR TIME BEING (TILL BANANA BAG IS OUT). PT HAVING THICK, WHYTE SECRETIONS FROM INLINE SUCTIONING CATHETER.
--- NOTE | 2020-01-21 12:13 | NUR ---
UNABLE TO ACCURATELY ANSWER THE SUICIDE REASSESSMENT INTERVENTION PT IS UNABLE TO ANSWER QUESTIONS.
--- NOTE | 2020-01-21 17:38 | NUR ---
SHIFT SUMMARY PT ON VENT, AC14/500/5/45%, PRODUCING THICK WHYTE SECRETIONS VIA ETT (MODERATE AMOUNT), CULTURE WAS SENT TODAY. PT ON MORE ANTIBIOTICS TODAY: ZOSYN AND VANC. HE IS SEDATED WITH PROPOFOL, WHICH HAS BEEN 45-60 MCG/KG/MIN, CURRENTLY BACK UP TO 60. FENTANYL PRECISION FARMING COORDINATOR HAS BEEN INFUSING CONTINUOUSLY AT 50MCG/HR. HE HAD ONE EVENT OF WAKING UP AND BECOMING QUITE AGITATED - PULLING ON RESTRAINTS, AND FIGHTING THE VENT. THIS WAS WHEN THE PROPOFOL WAS AT 45 MCG/KG/MIN AND AFTER DOING ORAL CARE + REPOSITIONING. TUBE FEEDING IS VITAL HIGH PROTEIN, INFUSING AT GOAL, 40 ML/HR, VIA OG TUBE. RESIDUALS HAVE BEEN 30-20-40 ML OF FORMULA/BILE. EDWARDS IS PATENT AND DRAINING MORE OF AN ORANGE/YELLOW URINE, OPPOSED TO YESTERDAY's DARK TEA COLORED URINE THAT CONTAINED CLOTS. NO CLOTS IN EDWARDS BAG TODAY THAT I HAVE SEEN. HE GOT A BANANA BAG TODAY, A FEW HOURS OF NS INFUSING AT 75 ML/HR, ZOSYN, AND VANCOMYCIN. I GOT THE NS DC'd D/T THE FACT HE HAS HAD A LOT OF INTAKE FROM IVF. HIS LUNGS, HOWEVER, SOUND BETTER THAN THIS MORNING, LESS WHEEZY, AND MORE CLEAR. DIMINISHED IN THE BASES AND IT APPEARS TO HAVE SOME COARSENESS ON THE LEFT SIDE. BED LOW AND LOCKED.
--- NOTE | 2020-01-21 19:05 | NUR ---
ASSUMED CARE REPORT AND BEDSIDE ROUNDING WITH RAQUEL FRANCO AT 1855. ASSUMED PT CARE. PT SEDATED AND INTUBATED, SETTINGS 14/500/5/45%, FARIDA WELL, SATS >90%. PT LUNG SOUNDS COARSE. BILATERAL SOFT WRIST RESTRAINTS NOTED. PT HAS QUAD LUMEN CENTRAL LINE TO RIGHT IJ, DRESSING C/D/I. HAS PROPOFOL INFUSING @ 55MCG/KG/MIN, NS @ KVO, ZOSYN @ 12.5ML/HR. OG TUBE NOTED, VITAL HIGH PROTEIN INFUSING @ 40ML/HR. BOWEL SOUNDS HYPOACTIVE. PATENT TEMP EDWARDS DRAINING GREENISH YELLOW URINE. PULSES STRONG AND EQUAL. SKIN RUSTY, DRESSINGS NOTED TO BILATERAL FA (FOAM), C/D/I. PT IN SR, HR 60'S. BP STABLE. EXT FLOATED ON PILLOWS. PUPILS 4MM AND BRISK. SEE FULL SHIFT ASSESSMENT.
--- NOTE | 2020-01-21 20:00 | NUR ---
UNABLE TO REASSESS SI DUE TO SEDATION AND INTUBATION.
--- NOTE | 2020-01-22 | NUR ---
UNABLE TO ASSESS SUICIDE QUESTIONS DUE TO INTUBATION AND SEDATION
--- NOTE | 2020-01-22 01:43 | NUR ---
PROVIDER UPDATE CALLED DR CASTANON RE PT INCREASE OXYGENATION NEEDS, EXPLAINED ATTEMPTED INTERVENTIONS (SUCTIONING, PRN NEBS, REPOSITIONING, LAVAGE). VERBAL ORDER RECEIVED TO INCREASE PT PEEP UP TO 10 NEEDED.
[2020-01-22 04:59] LABS: BASOPHILS ABSOLUTE AUTO 0.03 K/mm3 (0.00-0.23); BASOPHILS PERCENT AUTO 0 % (0-2); EOSINOPHILS ABSOLUTE AUTO 0.09 K/mm3 (0.00-0.68); EOSINOPHILS PERCENT AUTO 1 % (0-6); Hematocrit 39.2 % (37.0-53.0); Hemoglobin 12.9 g/dL (13.5-17.5); IMMATURE GRAN ABSOLUTE AUTO 0.07 K/mm3 (0.00-0.10); IMMATURE GRAN PERCENT AUTO 1 % (0-1); LYMPHOCYTES ABSOLUTE AUTO 1.61 K/mm3 (0.84-5.20); LYMPHOCYTES PERCENT AUTO 14 % (21-46); MONOCYTES ABSOLUTE AUTO 0.62 K/mm3 (0.16-1.47); MONOCYTES PERCENT AUTO 5 % (4-13); Mean Corpuscular HGB 33.5 pg (26.0-34.0); Mean Corpuscular HGB Conc 32.9 g/dL (31.5-36.5); Mean Corpuscular Volume 102 fL (80-100); Mean Platelet Volume 12.4 fL (9.1-12.4); NEUTROPHILS ABSOLUTE AUTO 9.28 K/mm3 (1.96-9.15); NEUTROPHILS PERCENT AUTO 79 % (41-73); Platelet Count 73 K/mm3 (150-400); RDW Coefficient Variation 16.1 % (11.7-14.2); RDW Standard Deviation 61.2 fL (35.1-46.3); Red Blood Cell Count 3.85 M/mm3 (4.30-5.90)
[2020-01-22 05:16] LABS: Albumin, Blood 2.7 g/dL (3.4-5.0); Anion Gap 6 mmol/L (6-16); Blood Urea Nitrogen 17 mg/dL (8-24); Bun/Creatinine Ratio 20.9 (12.0-20.0); CO2, Blood 27 mmol/L (21-32); Calcium, Blood 8.1 mg/dL (8.5-10.1); Chloride, Blood 108 mmol/L (98-108); Creatinine, Blood 0.81 mg/dL (0.60-1.20); Glomerular Filtration Rate >60 (60-); Glucose, Blood 123 mg/dL (70-99); Phosphorus, Blood 3.5 mg/dL (2.5-4.9); Potassium, Blood 3.6 mmol/L (3.5-5.5); Sodium, Blood 141 mmol/L (136-145)
--- NOTE | 2020-01-22 06:10 | NUR ---
SHIFT SUMMARY PT REMAINS SEDATED AND INTUBATED. VENT SETTINGS 14/500/10/45. SATS >90%. SECRETIONS THICK AND TANNISH/BROWN. PT REQUIRED INCREASE IN PEEP FROM 5 TO 10 DURING SHIFT. NO SPONTANEOUS BREATHING TRIAL DONE DUE TO INCREASE IN DEMANDS. LUNG SOUNDS COARSE AND DIMINISHED THROUGHOUT. PT TUBE FEEDS AT 40ML/HR, RESIDUALS LESS THAN 50ML. BS HYPOACTIVE. NO STOOL DURING SHIFT. PT EDWARDS PATENT AND DRAINING YELLOW URINE. PT REMAINS AFEBRILE. BILATERAL SOFT WRIST RESTRAINTS SECURED. BP STABLE. PT SR WITH PVCS, NO NEW SKIN ISSUES. PT QUAD LUMEN CENTRAL LINE RIGHT IJ REMAINS C/D/I. PROPOFOL INFUSING @ 55MCG/KG/MIN THROUGH A LUMEN, NS @ TKO THROUGH SEPERATE LUMEN WITH FENTANYL @ 50MCG/HR. WILL REPORT TO ONCOMING SHIFT.
--- NOTE | 2020-01-22 09:28 | NUR ---
PT INTUBATED AND SEDATED WITH PROPOFOL. ALSO ON FENTANYL AT 50MCG/HR. TITRATING PROPOFOL DOWN TO OBTAIN MARIE 3-4. VENT SETTINGS UNCHANGED FROM ASSESSMENT. TOLERATING TUBE FEEDING. NO SIGN OF DISTRESS.
--- NOTE | 2020-01-22 14:16 | NUR ---
PT IS INTUBATED AND SEDATED. UNABLE TO ASSESS SUICIDE SEVERITY. OUTPATIENT THERAPIST CALLED TO SAY HIS VOICEMAIL ON HIS PHONE HAS SUICIDAL IDEATION ON IT.
--- NOTE | 2020-01-22 14:30 | NUR ---
CONFIRMED PT'S SUICIDAL IDEATION BY CALLING PT'S CELL PHONE. HIS VOICEMAIL IS HIM SAYING "[facility]" TO FAMILY AND GIVING HIS THINGS AWAY.
--- NOTE | 2020-01-22 18:08 | NUR ---
SUMMARY PT INTUBATED AND SEDATED WITH PROPOFOL AND FENTANYL CIRCULATOR. DURING SEDATION VACATION PT DID NOT FOLLOW COMMANDS, JUST SCOOTS DOWN IN BED. PEEP DOWN FROM 10 TO 8 AND FIO2 DOWN TO 30%. GOT A DOSE OF LASIX AND HAD OVER 4L OUT THIS SHIFT. NO OTHER CHANGES THIS SHIFT.
--- NOTE | 2020-01-22 19:30 | NUR ---
ASSUMED PT CARE REPORT AND BEDSIDE ROUNDING WITH SHANNA FRANCO AT 1905. ASSUMED PT CARE. PT REMAINS INTUBATED AND SEDATED. VENT SETTINGS 14/500/8/30, PT TOLERATING WELL, SATS >90%. CUT ORDER HAND SHOWS NSR 70'S WITH PVCS. PT BP STABLE. PT HAS QUAD LUMEN CENTRAL LINE TO RIGHT IJ, DRESSING C/D/I. PROPOFOL INFUSING @ 40MCG/KG/MIN TO ONE LUMEN, NS @ KVO WITH FENTANYL @ 50MCG/HR TO A SEPERATE LUMEN. OG TUBE WITH VITAL HIGH PROTEIN INFUSING @ 40ML/HR. RESIDUALS HAVE BEEN WNL PER REPORT. ABD SOFT/DISTENDED. BS CONTINUE TO BE HYPOACTIVE. PATENT TEMP PROBE EDWARDS DRAINING YELLOW URINE, PT AFEBRILE. SEE FULL SHIFT ASSESSMENT.
--- NOTE | 2020-01-22 20:00 | NUR ---
UNABLE TO ASSESS SUICIDE SCREEN DUE TO INTUBATION AND SEDATION.
[2020-01-23 03:24] LABS: Base Excess Venous 5.6 mmol/L; Bicarbonate Venous 27.9 mmol/L (24.0-30.0); PCO2 Venous 50.5 mmHg (38-42); PO2 Venous 41.6 mmHg (38-42); pH Blood Venous 7.39 (7.34-7.37)
[2020-01-23 03:47] LABS: BASOPHILS ABSOLUTE AUTO 0.04 K/mm3 (0.00-0.23); BASOPHILS PERCENT AUTO 1 % (0-2); EOSINOPHILS ABSOLUTE AUTO 0.31 K/mm3 (0.00-0.68); EOSINOPHILS PERCENT AUTO 4 % (0-6); Hematocrit 39.6 % (37.0-53.0); IMMATURE GRAN ABSOLUTE AUTO 0.11 K/mm3 (0.00-0.10); IMMATURE GRAN PERCENT AUTO 1 % (0-1); LYMPHOCYTES ABSOLUTE AUTO 2.06 K/mm3 (0.84-5.20); LYMPHOCYTES PERCENT AUTO 24 % (21-46); MONOCYTES ABSOLUTE AUTO 0.72 K/mm3 (0.16-1.47); MONOCYTES PERCENT AUTO 8 % (4-13); Mean Corpuscular HGB 33.1 pg (26.0-34.0); Mean Corpuscular HGB Conc 32.8 g/dL (31.5-36.5); Mean Corpuscular Volume 101 fL (80-100); Mean Platelet Volume 12.2 fL (9.1-12.4); NEUTROPHILS ABSOLUTE AUTO 5.48 K/mm3 (1.96-9.15); NEUTROPHILS PERCENT AUTO 63 % (41-73); Platelet Count 81 K/mm3 (150-400); RDW Coefficient Variation 16.2 % (11.7-14.2); RDW Standard Deviation 60.9 fL (35.1-46.3); Red Blood Cell Count 3.93 M/mm3 (4.30-5.90); White Blood Cell Count 8.72 K/mm3 (4.00-11.30)
[2020-01-23 04:02] LABS: Alanine Aminotransfer (ALT/SGP 54 U/L (12-78); Albumin, Blood 2.5 g/dL (3.4-5.0); Albumin/Globulin Ratio 0.6 (0.8-1.8); Alk Phos 95 U/L (50-136); Anion Gap 5 mmol/L (6-16); Aspartate Aminotrans (AST/SGOT 60 U/L (12-37); Bilirubin, Total 0.8 mg/dL (0.1-1.0); Blood Urea Nitrogen 22 mg/dL (8-24); Bun/Creatinine Ratio 27.8 (12.0-20.0); CO2, Blood 31 mmol/L (21-32); Calcium, Blood 8.5 mg/dL (8.5-10.1); Chloride, Blood 109 mmol/L (98-108); Creatinine, Blood 0.79 mg/dL (0.60-1.20); Globulin, Blood 4.1 g/dL (2.2-4.0); Glomerular Filtration Rate >60 (60-); Glucose, Blood 105 mg/dL (70-99); Magnesium, Blood 2.4 mg/dL (1.6-2.4); Phosphorus, Blood 3.3 mg/dL (2.5-4.9); Potassium, Blood 3.3 mmol/L (3.5-5.5); Sodium, Blood 145 mmol/L (136-145); Total Protein, Blood 6.6 g/dL (6.4-8.2)
--- NOTE | 2020-01-23 06:45 | NUR ---
SHIFT SUMMARY PT REMAINS INTUBATED AND SEDATED. VENT SETTINGS SPON 10/5, 30%, PT FARIDA WELL, CONTINUES TO MOVE LOWER EXTREMITIES. WRISTS IN SOFT WRIST RESTRAINTS. DURING SEDATION VACATION PT DID NOT FOLLOW COMMANDS, DID NOT TRACK, UNABLE TO ANSWER ANY QUESTIONS. RESUMED SEDATION, PROPOFOL @ 45MCG/LG/MIN, FENTANYL ASSOCIATE DRAFTER INFUSING @ 50MCG/HR. CENTRAL LINE TO RIGHT IJ, DRESSING C/D/I. OG SECURED WITH VITAL HIGH PROTEIN INFUSING @ 40ML, RESIDUALS <50ML. TEMP PROBE EDWARDS PATENT AND DRAINING SAIRA COLORED URINE. NO BM DESPITE SUPPOSITORY, PT PASSING LOTS OF GAS, BOWEL SOUNDS PRESENT. WILL REPORT TO ONCOMING SHIFT.
--- NOTE | 2020-01-23 08:30 | NUR ---
PT INTUBATED AND SEDATED WITH PROPOFOL AND FENTANYL TOWING PILOT. CONSTANTLY MOVES ARMS AND LEGS IN BED. DOES NOT FOLLOW COMMMANDS AND NO GAG REFLEX. TITRATING PROPOFOL. HAS UPWARD GAZE WHEN EYE'S ARE OPEN BUT KEEPS EYE'S CLOSED MOST OF THE TIME. PT IS ON SPONTANOUS MODE ON THE VENT WITH PS 10, TOLERATING THAT WELL.
[2020-01-23 08:41] LABS: Vancomycin, Trough 10.9 ug/mL (5.0-10.0)
--- NOTE | 2020-01-23 10:52 | NUR ---
Pt. is lying in bed and is incubated ,offered prayers for the pt.
--- NOTE | 2020-01-23 18:09 | NUR ---
SUMMARY PT INTUBATED AND SEDATED WITH PROPOFOL AND FENTANYL HEATING ELEMENT REPAIRER. WHEN SEDATION IS LOWERED PT DOES NOT FOLLOW COMMANDS, JUST SCOOTS DOWN IN BED. DOES NOT HAVE A GAG OR REACH FOR ETT. UPWARD GAZE. REMAINS ON SPONTANEOUS VENT SETTINGS T/O THE DAY AND TOLERATING WELL. PT HAD NOT HAD A BM SINCE ARRIVAL TO HOSPITAL. WAS GIVEN DOCUSATE, MOM, AND ENEMA TODAY. HAD ONE MED SIZED LIQUID JELLY BM. TOLERATING TF WELL WITH LOW RESIDUALS. NO SIGN OF DISTRESS AT THE MOMENT.
--- NOTE | 2020-01-23 20:55 | NUR ---
ASSUMED CARE OF PT, REPORT RCV'D FROM Alexi PATRICK RN. PT INTUBATED AND SEDATED. VENT SETTINGS PS 10/5, 30% WITH SATS>90%. SEDATED WITH PROPOFOL 30 MCG/KG/MIN, FENTANYL ACCOUNT GENERAL MANAGER GTT 50 MCG/HR. DECREASED SEDATION TO ASSESS NEURO STATUS, PT SPONTANEOUSLY OPENS HIS EYES, UPWARD GAZE, PUPILS 2 MM BRISK-RIGHT PUPIL SLIGHTLY MORE SLUGGISH THAN LEFT. PT HAS WEAK COUGH, NO GAG, DOES NOT TURN TOWARDS SOUNDS, FAILS TO FOLLOW COMMANDS, MINIMAL WITHDRAW FROM STERNAL RUB. PT MOVES ALL EXTREMETIES. LUNG SOUNDS COARSE BILATERAL UPPER LOBES, DIM IN BASES. SCANT AMOUNT OF THICK WHYTE SECRETIONS FROM ETT. VITAL HIGH PROTEIN @GOAL RATE OF 40 ML/HR WITH 30 ML Q4 FLUSH. 20 ML RESIDUALS REFED. PT'S SISTER (KRYS) CALLED AND WAS UPDATED WITH PT'S CONDITION AND PLAN OF CARE. KRYS IS LISTED ON PT'S NEXT OF KIN. SEE FULL SHIFT ASSESSMENT.
--- NOTE | 2020-01-24 03:44 | NUR ---
PHONE CALL FROM [facility] AND [facility] INQUIRING ABOUT PLACEMENT FOR PT. UPDATED FACILITIES WITH PT'S MEDICAL STATUS.
[2020-01-24 04:17] LABS: BASOPHILS ABSOLUTE AUTO 0.06 K/mm3 (0.00-0.23); BASOPHILS PERCENT AUTO 1 % (0-2); EOSINOPHILS ABSOLUTE AUTO 0.29 K/mm3 (0.00-0.68); EOSINOPHILS PERCENT AUTO 2 % (0-6); Hematocrit 40.7 % (37.0-53.0); Hemoglobin 13.5 g/dL (13.5-17.5); IMMATURE GRAN ABSOLUTE AUTO 0.11 K/mm3 (0.00-0.10); IMMATURE GRAN PERCENT AUTO 1 % (0-1); LYMPHOCYTES ABSOLUTE AUTO 1.65 K/mm3 (0.84-5.20); LYMPHOCYTES PERCENT AUTO 13 % (21-46); MONOCYTES ABSOLUTE AUTO 1.38 K/mm3 (0.16-1.47); MONOCYTES PERCENT AUTO 11 % (4-13); Mean Corpuscular HGB 33.4 pg (26.0-34.0); Mean Corpuscular HGB Conc 33.2 g/dL (31.5-36.5); Mean Corpuscular Volume 101 fL (80-100); Mean Platelet Volume 11.5 fL (9.1-12.4); NEUTROPHILS ABSOLUTE AUTO 9.21 K/mm3 (1.96-9.15); NEUTROPHILS PERCENT AUTO 72 % (41-73); Platelet Count 97 K/mm3 (150-400); RDW Coefficient Variation 16.4 % (11.7-14.2); RDW Standard Deviation 61.5 fL (35.1-46.3); Red Blood Cell Count 4.04 M/mm3 (4.30-5.90)
[2020-01-24 04:30] LABS: Albumin, Blood 2.7 g/dL (3.4-5.0); Anion Gap 3 mmol/L (6-16); Blood Urea Nitrogen 26 mg/dL (8-24); Bun/Creatinine Ratio 32.4 (12.0-20.0); CO2, Blood 31 mmol/L (21-32); Calcium, Blood 8.5 mg/dL (8.5-10.1); Chloride, Blood 108 mmol/L (98-108); Glomerular Filtration Rate >60 (60-); Glucose, Blood 141 mg/dL (70-99); Phosphorus, Blood 2.7 mg/dL (2.5-4.9); Potassium, Blood 4.2 mmol/L (3.5-5.5); Sodium, Blood 142 mmol/L (136-145)
--- NOTE | 2020-01-24 05:46 | NUR ---
SHIFT SUMMARY NO ACUTE CHANGES OVERNIGHT. PT REMAINS MINIMALLY RESPONSIVE, WEAK COUGH, NO GAG. GAZE CONTINUES TO BE UPWARDS. NO RESPONSE TO PAINFUL STIMULI. VENT SETTINGS SPON 10/5 35%. MODERATE AMOUNT OF THICK WHYTE SECRETIONS. PROPOFOL @ 35 MCG/KG/MIN AND FENTANYL CARTON MAKING MACHINIST 50 MCG/HR FOR SEDATION. PT MOVES ALL EXTREMETIES AND RESTLESS WHEN SEDATION DECREASED. TMAX 101.8, CURRENT TEMP 100.2. 800 ML DARK YELLOW URINARY OUTPUT. 2 SMALL MUCOUSY BOWEL MOVEMENTS. WILL REPORT TO DAYSHIFT NURSE.
--- NOTE | 2020-01-24 07:19 | NUR ---
ASSUMED CARE RECIEVED REPORT FROM [facility]ES. PT IS LAYING IN BED INTUBATED WITH 8.0 ETT, 27 @ LIP. VENT: SPONTANEOUS, PS 10/5 - 35% FIO2. 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 HE IS ADEQUETLY SEDATED, CPOT OF 0. SCD's ARE ON BILATERAL CALVES, EDWARDS PATENT AND DRAINING A DARKER ORANGE URINE. PT AFEBRILE AT 98.6. SINUS RHYTHM IN THE 80s, STABLE BP, RR, AND O2 SATS. RESTRAINTS SECURED TO BED AND PT. BED LOW AND LOCKED.
--- NOTE | 2020-01-24 07:24 | NUR ---
UNABLE TO ACCURETLY ASSESS SUICIDE RISK WHILE PT IS SEDATED AND INTUBATED ON VENT. WILL REEVALUATE WHEN PT IS EXTUBATED.
--- NOTE | 2020-01-24 10:56 | NUR ---
UPDATE PT WILL WITHDRAW FROM PAIN NOW, HE IS MOVING ALL EXTREMETIES SLIGHTLY. HIS PUPILS ARE DILATED NOW, AND NOT TRACKING ANYTHING. HE HAS HIS EYES MOSTLY OPEN, BUT HE IS JUST STARING BLANKLY IN FRONT OF HIM. HE HAS A CORNEAL REFLEX. WHEN I DEEP SUCTIONED HIM, HE GRIMACED BUT APPEARED NOT TO GAG - OF COURSE THIS WAS WHEN SEDATION WAS TURNED UP. HE IS CURRENTLY AT PROPOFOL OF 15 MCG/KG/MIN.
--- NOTE | 2020-01-24 11:55 | NUR ---
UPDATE PT BACK FROM CT, NO COMPLICATIONS. VITALS STABLE. 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 PROPOFOL CONTINUES AT 15 MCG/KG/MIN. HE IS MOVING NONPURPOSEFULLY, WITHDRAWING FROM NOXIOUS STIMULI, THOUGH.
--- NOTE | 2020-01-24 13:18 | NUR ---
UPDATE SALES MANAGER IS IN ROOM WITH PT. EVER SINCE PT WAS BACK TO ICU FROM CT, PT HAS BEEN FEBRILE 99.0-99.8. FAN PLACED ON PT.
--- NOTE | 2020-01-24 13:25 | NUR ---
Met pt. on his way for test offered prayers and gave spiritual support.
--- NOTE | 2020-01-24 17:23 | NUR ---
SHIFT SUMAMRY NO MAJOR EVENTS TODAY; BOTH CT OF HEAD AND EEG DONE TODAY. CT CAME BACK NEGATIVE AND EEG WONT BE READ TILL 1999 TONIGHT. 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 TODAY ON LIGHT TO NO SEDATION PT WOULD MOVE UNPURPOSEFULLY, NOT TRACK WITH HIS EYES BUT WOULD HAVE THEM OPEN STARING OFF IN FRONT OF HIM, AND WITHDRAW FROM NOXIOUS STIMULI. HE WOULD EVEN GRIMACE UPON DEEP SUCTIONING. HE DOES NOT FOLLOW ANY DIRECTIONS. VENT: SPONTANEOUS, PS 10/5, 35% FIO2. SINUS RHYTHM 80-105 RATE, BP STABLE, O2 SATS STABLE. EDWARDS CATHETER DRAINING LOTS OF URINE OUTPUT ~2+ L. NO BM TODAY. NYSTATIN POWDER APPLIED TO PANNUS/FOLDS/JOLIE AREA. KRYS, THE SISTER, CALLED AND WAS UPDATED. BED LOW AND LOCKED.
--- NOTE | 2020-01-24 19:49 | NUR ---
INITAL SHIFT ASSESSMENT BED SIDE REPORT RECIEVED FROM OFF GOING RN. PT IS INTUBATED AND SEDATED AT THIS TIME. ORAL CARE WAS PERFORMED AND THERE WAS MINIMAL GAG REFLUX. PT DID NOT OPEN EYES TO ANY TYPE OF STIMULI, BUT DID HAVE FACIAL GRIMACING. PT IS ON SPONTANEOUS VENT SETTINGS. SEE RT NOTES REGARDING ANY VENT SETTING CHANES T/O SHIFT. CURRENTLY PT DOES NOT APPEAR TO BE IN ANY DISTRESS. VITALS ARE STABLE AT THIS TIME. PT DOES HAVE ANY OG TUBE IN PLACE WELL WITH TUBE FEEDING AND FLUSHES RUNNING ORDERED. RESIDUAL UNDER 60ML. PT'S ABD IS SOFT AND ROUND NON-TENDER TO PALPITATION. PT HAS EDWARDS CATH IN PLACE DRAINING CLEAR YELLOW URINE. PICC LINE TO LEFT UPPER ARM HAS A CDI DRESSING WITH NO S/S OF INFECTION. PROPOFOL GTT RUNNING IN AT 25MCG AND FENTANYL GTT AT 25MCG/HR. SOFT BILATERAL WRIST RESTRAINTS IN PLACE. SKIN CDI WITH GOOD CIRCULATION. WILL CON'T TO MONITOR AND KEEP PT SAFE T/O REMAINDER OF SHIFT.
--- NOTE | 2020-01-24 23:20 | NUR ---
SHIFT UPDATE PT CON'T TO BE STABLE WITH NO CHANGES FROM BASELINE. NO NEURO CHANGES. PT CON'T TO OPEN EYES WITH TURNS, BUT DOES NOT FOLLOW COMMANDS. HE DID NOT TOLERATE LAYING FLAT WITH BEDBATH. HE CON'T TO CANO ON THE ET TUBE AND HAD A FAIR AMOUNT OF SPUTUM RETURN WITH THE INLINE SUCTION. VITALS REMAINED STABLE. PT CON'T TO HAVE NO CHANGES WITH GTTS. SAMM SOFT WRIST RESTRAINTS IN PLACE. WILL CON'T TO MONITOR AND KEEP PT SAFE T/O REMAINDER OF SHIFT.
[2020-01-25 04:14] LABS: BASOPHILS ABSOLUTE AUTO 0.04 K/mm3 (0.00-0.23); BASOPHILS PERCENT AUTO 0 % (0-2); EOSINOPHILS ABSOLUTE AUTO 0.39 K/mm3 (0.00-0.68); EOSINOPHILS PERCENT AUTO 4 % (0-6); Hematocrit 39.3 % (37.0-53.0); Hemoglobin 12.9 g/dL (13.5-17.5); IMMATURE GRAN ABSOLUTE AUTO 0.07 K/mm3 (0.00-0.10); IMMATURE GRAN PERCENT AUTO 1 % (0-1); LYMPHOCYTES ABSOLUTE AUTO 2.64 K/mm3 (0.84-5.20); LYMPHOCYTES PERCENT AUTO 24 % (21-46); MONOCYTES ABSOLUTE AUTO 1.11 K/mm3 (0.16-1.47); MONOCYTES PERCENT AUTO 10 % (4-13); Mean Corpuscular HGB 33.1 pg (26.0-34.0); Mean Corpuscular HGB Conc 32.8 g/dL (31.5-36.5); Mean Corpuscular Volume 101 fL (80-100); Mean Platelet Volume 11.5 fL (9.1-12.4); NEUTROPHILS ABSOLUTE AUTO 6.68 K/mm3 (1.96-9.15); NEUTROPHILS PERCENT AUTO 61 % (41-73); Platelet Count 93 K/mm3 (150-400); RDW Coefficient Variation 16.4 % (11.7-14.2); White Blood Cell Count 10.93 K/mm3 (4.00-11.30)
[2020-01-25 04:28] LABS: Anion Gap 3 mmol/L (6-16); Blood Urea Nitrogen 31 mg/dL (8-24); Bun/Creatinine Ratio 43.7 (12.0-20.0); CO2, Blood 33 mmol/L (21-32); Calcium, Blood 8.6 mg/dL (8.5-10.1); Chloride, Blood 107 mmol/L (98-108); Creatinine, Blood 0.71 mg/dL (0.60-1.20); Glomerular Filtration Rate >60 (60-); Glucose, Blood 114 mg/dL (70-99); Magnesium, Blood 2.4 mg/dL (1.6-2.4); Phosphorus, Blood 3.1 mg/dL (2.5-4.9); Potassium, Blood 3.8 mmol/L (3.5-5.5); Sodium, Blood 143 mmol/L (136-145)
--- NOTE | 2020-01-25 05:33 | NUR ---
SHIFT SUMMARY PT CON'T TO BE STABLE. PT IS SLIGHTLY MORE ALERT THIS AM. EYES ARE OPEN MORE SPONTANEOUSLY WITHOUT STIMULI. HE IS NOT FOLLOWING COMMANDS AT THIS TIME. HIS SEDATION HAS BEEN TITRATED MINIMALY FOR INCREASED SEDATION NEEDED. SEE ICU FLOW SHEET. PT CON'T TO HAVE PROPOFOL GTT AT 35MCG WELL FENTANYL IV AT 25MCG RUNNING IN PICC LINE TO LEFT UPPER ARM. PT CON'T TO HAVE SOFT BILATERAL WRIST RESTRAINTS IN PLACE. WILL CON'T TO MONITOR AND KEEP PT SAFE TILL REPORT TO ONCOMING RN.
--- NOTE | 2020-01-25 07:10 | NUR ---
ASSUMED CARE RECEIVED REPORT FROM SALVADOR HUTTON. PT IS ALERT AND ORIENTED X 4 IN BED, WITH A TR BAND ON RIGHT RADIAL SITE, WITH 5 ML STILL INFLATED PER NOC NURSE. SITE LOOKS WNL, SOFT, NONTENDER, AND NO HEMATOMA FORMATION. PT DENIES N/T IN RIGHT HAND. HE ALSO DENIES CP/PRESSURE CURRENTLY, BUT STATES HE IS SLIGHTLY SHORT OF BREATH. HE IS ON 3L, SATs ARE 93%. VITALS ARE STABLE. PT ON NTG GTTP AT 50 MCG/MIN. PT APPEARS DEPRESSED AND WITHDRAWN FROM SITUATION. BED LOW AND LOCKED. CALL LIGHT WITHIN REACH.
--- NOTE | 2020-01-25 07:17 | NUR ---
ASSUMED CARE RECIEVED REPORT FROM SALVADOR HUTTON. PT IS INTUBATED WITH 8.0 ETT, 27 AT LIP. SETTINGS ARE SPONTANEOUS, PS 10/5, 35% FIO2. PROPOFOL IS AT 35 MCG/KG/MIN, AND FENTANYL ASSEMBLER GOLD FRAME GTTP IS 25 MCG/HR. EDWARDS IS PATENT AND DRAINING ORANGE URINE, SCDs ARE ON BILATERAL CALVES, AND RESTRAINTS ARE SWB SECURED TO PT AND BED. VITAL HIGH PROTEIN IS INFUSING VIA OG TUBE AT GOAL RATE OF 40 ML/HR. VITALS ARE STABLE, SINUS RHYTHM AND AFEBRILE. BED LOW AND LOCKED.
--- NOTE | 2020-01-25 09:22 | NUR ---
UNABLE TO ASSESS SUICIDE IDEATION WHEN PT IS INTUBATED AND SEDATED.
--- NOTE | 2020-01-25 11:02 | NUR ---
UPDATE DR. LANDIS WANTS PROPOFOL OFF. HE HAS BEEN OFF FOR AN HOUR. HE IS EXHIBITING THE SAME BEHAVIORS, NO CHANGES. NO PURPOSEFUL MOVEMENT, NOT FOLLOWING COMMANDS, NOT TRACKING WITH EYES, BUT EYES ARE WIDE OPEN AND HE IS MOVING ALL EXTREMETIES. WE ARE ALSO SWITCHING THE CONTINUOUS FENTANYL GTTP TO PRN PUSHES.
--- NOTE | 2020-01-25 15:25 | NUR ---
[facility] INITIAL VISIT - Dad Yan Beatty - [phone]. Dad reportedly lives out of state. Sister-Shruti [place] appears to live [facility]. Her # is [phone]. Referral received today for advanced care planning, goals of care discussion & to determine family member for medical decision making for pt. EMR reviewed and case conferenced with RN before and after my visit to pt in ICU #9. No family at the bedside but RN reports half-brother in earlier. Chart lists father as first contact center specialist, Yan Beatty [phone] and sister, Shruti Myers [phone]. Both of these family members have called staff for updates since he was admitted to the hospital with encephalopathy approx one week ago. Pt has not cleared and mentation has not improved even with sedation vacations and ventilatory support. EEG results pending. Sister will be called with results, by Dr or staff once available. Discussed need for family decision maker with RN. Regardless of goals of care decided upon, surrogate medical decision maker will need to make decisions or consent for treatment and dc plans. T/c to dad and I was unable to leave a message. By [place] law and our policy he would be the first person asked to serve as a Medical decision maker. He can defer to another family member if he is not able to fill that role. Sister-Shruti, would be #2 choice per [place] statute, reviewed with RN. My message to Shruti, per , was only a request to return my call at her convenience. [facility] will continue to reach out to family and remain available for family/staff to assist with advanced care planning going forward. Pt does not appear to be in pain and did not demonstrate any nonverbal indicators of pain, anxiety or distress at the time of my visit. He is intubated. Reviewed RN notes on his neuro assessment and LOC off of sedation earlier today.
--- NOTE | 2020-01-25 17:06 | NUR ---
SHIFT SUMMARY PT REMAINS ON SPONTANEOUS MODE VENTILATION, PS 10/5, 35%. SEDATED ON PROPOFOL 20 MCG/KG/MIN, AND PRN FENTANYL PUSHES. NO CHANGE IN NEURO STATUS TODAY, ALTHOUGH, DR. LANDIS SAID HE IS NO LONGER HAVING THE UPWARD GAZE HE WAS DOING BEFORE. WE ARE TRYING TO LIMIT SEDATION, BUT OFF SEDATION PT BECOMES VERY RESTLESS, AND THRASHES AROUND. AFTER TALKING TO DR. LANDIS I BELIEVE WE WILL TRY ADDING PRECEDEX, MINIMIZING PROPOFOL TO LOW OF A DOSE POSSIBLE AND MEDICATING FOR PAIN WITH PRN FENTANYL PUSHES. VITALS HAVE BEEN STABLE ALL DAY, SINUS RHYTHM, BP ADEQUATE, AND SUFFICIENT O2 SATURATIONS. HIS RR WILL RISE AND FALL WITH INCREASES AND DECREASES OF PROPOFOL, AT TIMES HE WAS HYPOVENTILATING AND REQUIRING DECREASES IN PROPOFOL, AND WHEN HE WAS THRASHING AROUND HE WAS TACHYPNEIC REQUIRING MORE SEDATION. PER RESPIRATORY THERAPY PT HAS BEEN HAVING COPIOUS THICK SECRETIONS FROM ETT, SOME HAVE BEEN PINK TINGED, BUT MAINLY WHITE. I HAVE SUCTIONED COPIOUS FROM HIS ORAL CAVITY WITH THE YANKAUR. TF CONTINUES AT GOAL OF VHP AT 40 ML/HR; RESIDUALS ARE ADEQUATE (30,60,10). EDWARDS REMAINS PATENT DRAINING ADEQUATE URINE OUTPUT. DR. ALMEIDA CALLED TODAY TO INFORM US THAT HE READ THE EEG AND HE BELIEVES THIS ENCEPHALOPATHY IS NOTHING RELATED TO STATUS EPILEPTICUS AND THAT THE BRAIN WAVES APPEAR LOW AND CHARACTERISTIC OF AN ENECPHALOPATHY. THE PT'S SISTER, KRYS, AND YOUNGER HALF BROTHER, JESSICA, HAVE CAME BY AND VISITED. BOTH ARE INTERESTED IN THE PT'S KEYS BECAUSE THERE ARE MANY TOOLS IN THE CAR AND OTHER THINGS THEY WANNA TAKE CARE. I TOLD THEM THAT I COULDN'T GIVE ANYTHING AWAY. KRYS IS AWARE OF EEG RESULTS. BED LOW AND LOCKED.
--- NOTE | 2020-01-25 19:48 | NUR ---
SHIFT ASSESSMENT PT IS INTUBATED AND SEDATED AT THIS TIME. BED SIDE REPORT WAS RECIEVED FROM OFF GOING RN. PRECEDEX AT 0.4MCG AND PROPOFOL GTT AT 10MCG. WILL CON'T TO TITRATE THESE DRIPS NEEDED FOR SEDATION. SEE ICU FLOW SHEET FOR RATE CHANGES AND SEE EMAR FOR ALL ADMINISTRED MEDICATIONS. PT IS MOVING ABOUT IN BED WITH HIS LEGS AND ARMS, BUT MOVEMENTS APPEAR TO NOT BE PURPOSEFUL. PT DOES NOT FOLLOW ANY COMMANDS. PUPILS ARE EQUAL AND REACTIVE, BUT PT HAS A FIXED STARE. PT HAS A SLIGHT GAG REFLUX WITH DEEP ORAL SUCTION AND DOES MOVE HEAD BACK AND FORTH. OG TUBE IN PLACE WELL WITH TUBE FEEDING RUNNING ORDERED SEE NURSES ASSESSMENT. MINMAL RESIDUALS AT THIS TIME. ABD IS ROUND AND SOFT WITH NO S/S OF TENDERNESS WITH PALPITATION. EDWARDS CATH IN PLACE DRAINING CLEAR YELLOW URINE WITH NO S/S OF INFECTION. PAS STOCKINGS IN PLACE WELL. SKIN IS OVERALL CDI WITH MINIMAL REDNESS IN GROIN AT THIS POINT. HE DOES HAVE TWO CDI DRESSING TO SAMM FOREARMS. PICC LINE TO LEFT UPPER ARM IS CDI WITH NO S/S OF INFECTION. SOFT SAMM WRIST RESTRAINTS IN PLACE WITH GOOD CIRCULATION. WILL CON'T TO MONITOR AND KEEP PT SAFE T/O REMAINDER OF SHIFT.
--- NOTE | 2020-01-25 21:47 | NUR ---
DR BOBY LANDIS CALLED REGARDING PT'S SEDATION LEVEL AND VENT COMPLIANCE. PT HAS BEEN INCREASING IN RESTLESSNESS AND THUS PRECEDEX GTT HAS BEEN TITRATED UP. FENTANLY IV WAS GIVEN DURING BED BATH WHICH PT TOLERATED WELL. PT'S RR THEN DROPPED WELL TITAL VOLUMES. PRECEDX GTT THEN TITRATED DOWN AND PT BECAME VERY RESTLESS IN BED. MOVING ABOUT WITH BODY, SLIDDING DOWN IN BED, LEGS MOVING UP IN AIR AND THEN DROPING THEM OFF THE EDGE OF BED AND LIFTING HEAD CONSTANTLY OFF PILLOW. RT ASSESSED PT AND DR LANDIS WAS CALLED. WILL INCREASE SEDATION WITH PROPOFOL GTT AND PLACE PT ON AC NEEDED T/O SHIFT. WILL DO A WEAN IN THE AM.
[2020-01-26 03:45] LABS: Hematocrit 42.2 % (37.0-53.0); Hemoglobin 13.9 g/dL (13.5-17.5); Mean Corpuscular HGB 33.3 pg (26.0-34.0); Mean Corpuscular HGB Conc 32.9 g/dL (31.5-36.5); Mean Corpuscular Volume 101 fL (80-100); Mean Platelet Volume 10.9 fL (9.1-12.4); Platelet Count 96 K/mm3 (150-400); RDW Coefficient Variation 15.9 % (11.7-14.2); Red Blood Cell Count 4.17 M/mm3 (4.30-5.90); White Blood Cell Count 6.01 K/mm3 (4.00-11.30)
[2020-01-26 04:00] LABS: Anion Gap 4 mmol/L (6-16); Blood Urea Nitrogen 34 mg/dL (8-24); Bun/Creatinine Ratio 43.4 (12.0-20.0); CO2, Blood 30 mmol/L (21-32); Calcium, Blood 8.7 mg/dL (8.5-10.1); Chloride, Blood 109 mmol/L (98-108); Creatinine, Blood 0.78 mg/dL (0.60-1.20); Glomerular Filtration Rate >60 (60-); Glucose, Blood 124 mg/dL (70-99); Potassium, Blood 3.9 mmol/L (3.5-5.5); Sodium, Blood 143 mmol/L (136-145)
[2020-01-26 04:04] LABS: BAND PERCENT MAN 20 % (0-8); BASOPHILS ABSOLUTE MAN 0.12 K/mm3 (0.00-0.23); BASOPHILS PERCENT MAN 2 % (0-2); EOSINOPHILS PERCENT MAN 5 % (0-6); LYMPHOCYTES ABSOLUTE MAN 0.78 K/mm3 (0.84-5.20); LYMPHOCYTES PERCENT MAN 13 % (21-46); MONOCYTES ABSOLUTE MAN 0.84 K/mm3 (0.16-1.47); MONOCYTES PERCENT MAN 14 % (4-13); MYELOCYTE ABSOLUTE MAN 0.06 K/mm3 (0.00-0.00); MYELOCYTE PERCENT MAN 1 % (0-0); SEG NEUTROPHILS PERCENT MAN 45 % (41-73); TOTAL CELLS COUNTED 100
--- NOTE | 2020-01-26 05:49 | NUR ---
SHIFT SUMMARY PT CON'T TO BE STABLE. HE DID HAVE A WEAN THIS AM AND DID VERY WELL. PT WAS ABLE TO RESPOND TO VERBAL STIMULI AND FOLLOW COMMANDS. HE WAS ABLE TO BLINK WHEN ASKED TO. HE WAS ABLE TO WIGGLE TOES AND LOOK TOWARDS RT OR NURSE WHEN ASKED TO. PT TOLERATED WEAN QUITE WELL AND THEN WAS RE-SEDATED WITH PROPOFOL GTT AT 35MCG AND PRECEDEX GTT AT 0.3MCG. PT HAD A LARGE BROWN SOFT BM WELL DURING WEAN. SAMM SOFT WRIST RESTRAINTS CON'T TO BE IN PLACE. PT IS RESTING AT THIS TIME. MOVING LEGS ABOUT IN BED AND SHIFTING HIS HIPS. VITALS ARE STABLE. WILL CON'T TO MONITOR AND KEEP PT SAFE UNITL REPORT TO ONCOMING RN.
--- NOTE | 2020-01-26 07:45 | NUR ---
ASSUMED CARE BEDSIDE REPORT RECIEVED. PT IS INTUBATED AND SEDATED. VENT SETTINGS AC 14, TV 500, PEEP 5, FIO2 40%. PT SEDATED WITH PROPOFOL AT 35 MCG/KG/MIN AND PRECEDEX AT 0.3 MCG/KG/MIN. PICC TO TAI C/D/I. OGT IN PLACE WITH TF AT 40 ML/HR GOAL RATE. PT GRIMMACES TO NOXIOUS STIMULI AND WITHDRAWS EXTREMITIES. PT MOVES ALL EXTREMITIES SPONTANEOUSLY. EDWARDS IN PLACE WITH YELLOW URINE OUTPUT NOTED. WITH INCONTINENT LOOSE BM AT THIS TIME. SBW RESTRAINTS IN PLACE. VITAL SIGNS STABLE. WILL CONTINUE TO MONITOR.
--- NOTE | 2020-01-26 09:30 | NUR ---
DR NELY MCKAY IN TO SEE PT. PROPOFOL PLACED ON STANDBY. PT SWITCHED TO SPONTANEOUS WITH PS 5/5, FIO2 30%. PLAN TO EXTUBATE PT THIS MORNING.
--- NOTE | 2020-01-26 12:58 | NUR ---
EXTUBATION PT EXTUBATED AT 1245 WITH RT AT BEDSIDE. PT PLACED ON 4L O2 NC. PT WITH STRONG COUGH. PT IMMEDIATELY ATTEMPTING TO YELL OUT, WORDS INCOMPREHENSABLE AT THIS TIME. PT UNABLE TO ANSWER SUICIDE ASSESSMENT QUESTIONS AT THIS TIME. 1:1 SITTER PRESENT AT BEDSIDE. WILL CONTINUE TO MONITOR.
--- NOTE | 2020-01-26 14:17 | NUR ---
Pt off vent review of pt with Dr. Hill. will see how he progresses and speiank with family on code status and prognosis.
--- NOTE | 2020-01-26 17:49 | NUR ---
SHIFT SUMMARY PT HAS DONE WELL THIS AFTERNOON S/P EXTUBATION. PT TITRATED DOWN TO 2L O2 NC. VITAL SIGNS HAVE REMAINED STABLE. PT ORIENTED TO SELF AND PLACE. PT IS LETHARGIC, BUT KICKS LEGS AROUND IN BED AND IMPULSIVELY ATTEMPTS TO SLIDE OUT OF BED. CARLOZ VEST IN PLACE. PT PLACED ON 2MD SUICIDE HOLD TODAY. 1:1 SITTER AND REMOTE MONITORING CAMERAS IN PLACE AT THIS TIME. PT MOANS OUT, SOME WORDS BECOMING MORE CLEAR. PT REQUESTING WATER CONTINUALLY. PICC TO TIA REMAINS C/D/I. PRECEDEX INFUSING AT 0.5 MCG/KG/MIN. EDWARDS REMAINS IN PLACE WITH YELLOW URINE OUTPUT NOTED. PT FAMILY MEMBER KRYS UPDATED TO CURRENT PT CONDITION. WILL CONTINUE TO MONITOR AND REPORT OFF TO ONCOMING RN.
--- NOTE | 2020-01-26 19:00 | NUR ---
ASSUMED CARE ASSUMED CARE OF PATIENT. AWAKE AND ALERT. ORIENTED TO SELF AND TO THE FACT THAT HE IS IN THE HOSPITAL, BUT DOES NOT KNOW DATE/TIME OR CITY/STATE. FOLLOWS SIMPLE DIRECTIONS. RESTLESS MOVEMENTS IN BED- REPOSITIONS SELF FREQUENTLY. FREQUENTLY CALLS OUT FOR "WATER" AND "GHISLAINE." CARLOZ VEST IN PLACE. SITTER AT BEDSIDE. PT IS UNABLE TO ANSWER SUICIDE REASSESSMENT QUESTIONS AT THIS TIME. MONITOR SHOWS NSR, RATE 60s. BP STABLE. RESPIRATIONS EVEN AND UNLABORED. 02 2L NC. PRECEDEX CONTINUES AT 0.5MCG/KG/HR. TIA PICC LINE NOTED. NPO AT THIS TIME. EDWARDS PATENT AND DRAINING ORANGISH-YELLOW URINE. SEE SHIFT ASSESSMENT FOR FULL ASSESSMENT.
--- NOTE | 2020-01-27 05:47 | NUR ---
COLUMBIA SUICIDE SEVERITY RATING SCALE PT IS ORIENTED TO SELF AND PLACE, BUT CONTINUES WITH OCCASIONAL CONFUSED CONVERSATION. WHEN ASKED THE QUESTIONS ON THE COLUMBIA SUICIDE ASSESSMENT, PT ANSWERS YES TO ALL QUESTIONS. WILL REASSESS WHEN PT IS MORE ALERT AND ORIENTED.
--- NOTE | 2020-01-27 06:39 | NUR ---
SHIFT SUMMARY NO ACUTE CHANGES DURING NOC. REMAINS INTUBATED- AC 14, TV 400, PEEP 5, FIO2 NOW AT 35%. SBT DONE THIS AM- SEE RT DOCUMENTATION. SEDATED WITH PROPOFOL BETWEEN 10-50MCG/KG/MIN- NOW INFUSING AT 30MCG/KG/MIN. MEDICATED WITH DILAUDID 0.5MG IV X 1 FOR PAIN AND FENTANYL 50MCG IV X 3 DOSES AN ADJUNCT TO SEDATION. FOLLOWS SIMPLE COMMANDS AND NODS HEAD YES/NO WHEN SEDATION IS LIGHTENED. BILATERAL SOFT WRIST RESTRAINTS ON TO PREVENT SELF EXTUBATION. VSS. AFEBRILE. OG TO LIS WITH APPROXIMATELY 10OCC DRAINAGE. EDWARDS PATENT AND DRAINING YELLOW URINE. SCDs TO BLE. RIGHT FOREARM WITH REDNESS NOTED FROM PREVIOUS IV. CLINIMIX @ 100CC/HR PER ORDER. [facility] C/D/I. WILL REPORT TO ONCOMING RN WHEN AVAILABLE.
--- NOTE | 2020-01-27 06:48 | NUR ---
SHIFT SUMMARY NO ACUTE CHANGES DURING NOC. SLEPT INTERMITTENTLY. OCCASIONALLY ATTEMPTS TO CLIMB OUT OF BED. CARLOZ VEST IN PLACE. SITTER AT BEDSIDE D/T HIGH RISH SUICIDE PRECAUTIONS. PRECEDEX HAS BEEN OFF SINCE 444. PT IS ORIENTED TO SELF AND PLACE, BUT NOT TO DATE/TIME OF EVENTS. FREQUENTLY CALLS OUT FOR WATER AND FOR FAMILY MEMBERS. REPOSITIONS SELF IN BED. DENIES C/O PAIN. C/O BEING HUNGRY AND THIRSTY. FREQUENT ORAL CARE DONE T/O NOC. EDWARDS PATENT AND DRAINING ORANGISH URINE. SEDIMENT NOTED IN TUBING. CHRISTINE PICC PATENT. VSS T/O NOC. WILL REPORT TO ONCOMING RN WHEN AVAILABLE.
--- NOTE | 2020-01-27 08:49 | NUR ---
ASSUMED CARE BEDSIDE REPORT RECIEVED. PT IS LAYING IN BED AWAKE, ALERT, AND YELLING OUT. PT IS ABLE TO BE REDIRECTED FOR SHORT PERIODS OF TIME. PT FOLLOWS SIMPLE COMMANDS. PT IS RESTLESS/FIDGETING IN BED. CARLOZ VEST IN PLACE, PT FREQUENTLY ATTEMPTING TO GET OUT OF BED. PT STATES YES TO ALL SUICIDE ASSESSMENT QUESTIONS, PT REMAINS ON SUICIDE PRECAUTIONS WITH 1:1 SITTER AT BEDSIDE. [address] MD HOLD REMAINS IN PLACE. PICC TO TIA C/D/IMoira EDWARDS IN PLACE WITH YELLOW OUTPUT NOTED. PT SISTER KRYS HERE TO VISIT PT AT THIS TIME. PER DISCUSSION WITH PT AND SISTER KRYS, PT CONSENTS TO HER TAKING HIS CAR KEYS HOME AT THIS TIME. ALL OTHER PT BELONGINGS REMAIN IN LOCKED CABINET IN ROOM. VITAL SIGNS STABLE. WILL CONTINUE TO MONITOR.
--- NOTE | 2020-01-27 17:43 | NUR ---
SHIFT SUMMARY PT DID WELL THIS SHIFT. PRECEDEX GTT HAS REMAINED OFF THROUGHOUT THE SHIFT. PT MENTATION HAS CLEARED THROUGHOUT THE DAY. PT HAS BEEN VERY TALKATIVE. PT IS ALERT AND ORIENTED WITH EPISODES OF CONFUSION NEEDING REDIRECTION. PT HAS REMAINED CALM AND COOPERATIVE. PT REMAINS SUICIDAL, AND GETS TEARFUL WHEN SI IS ASSESSED. 1:1 SITTER HAS REMAINED AT BEDSIDE THROUGHOUT THE SHIFT. VITAL SIGNS STABLE, PT ON ROOM AIR. PICC TO TIA SALINE LOCKED. EDWARDS REMAINS IN PLACE WITH DARK YELLOW OUTPUT NOTED. PT WITH GREAT APPETITE TODAY AND TOLERATING PO DIET WELL. PT UP TO RECLINER AT BEDSIDE WITH TWO PERSON ASSISTANCE. WILL CONTINUE TO MONITOR AND REPORT OFF TO ONCOMING RN.
--- NOTE | 2020-01-27 20:25 | NUR ---
CARE ASSUMED CARE AND REPORT ASSUMED FROM JESSICA FRANCO. PT TALKING CONTINUALLY WITH SITTER. HE IS A/O X 3 AND ABLE TO FOLLOW COMMANDS APPROPRIATELY. DENIES PAIN CURRENTLY. TOLERATING NECTAR THICK LIQUIDS. REMAINS IN HIGH RISK SUICIDE WATCH WITH 1:1 SITTER. VSS. EDWARDS CATH SECURED AND PATENT. NYSTATIN APPLIED TO GROIN AREA. ZYPREXA ADMINISTERED TO HELP PT REST. WILL CONTINUE TO MONITOR.
--- NOTE | 2020-01-27 23:38 | NUR ---
HANDOFF HANDOFF AND REPORT GIVEN TO EULALIA FRANCO.
--- NOTE | 2020-01-28 02:00 | NUR ---
ASSUMED CARE AND RECEIVED REPORT FORM SALVADOR FLETCHER
[2020-01-28 04:09] LABS: BASOPHILS ABSOLUTE AUTO 0.06 K/mm3 (0.00-0.23); BASOPHILS PERCENT AUTO 1 % (0-2); EOSINOPHILS ABSOLUTE AUTO 0.28 K/mm3 (0.00-0.68); EOSINOPHILS PERCENT AUTO 3 % (0-6); Hematocrit 39.6 % (37.0-53.0); Hemoglobin 13.8 g/dL (13.5-17.5); IMMATURE GRAN ABSOLUTE AUTO 0.07 K/mm3 (0.00-0.10); IMMATURE GRAN PERCENT AUTO 1 % (0-1); LYMPHOCYTES ABSOLUTE AUTO 2.71 K/mm3 (0.84-5.20); LYMPHOCYTES PERCENT AUTO 33 % (21-46); MONOCYTES ABSOLUTE AUTO 0.86 K/mm3 (0.16-1.47); MONOCYTES PERCENT AUTO 10 % (4-13); Mean Corpuscular HGB 34.2 pg (26.0-34.0); Mean Corpuscular HGB Conc 34.8 g/dL (31.5-36.5); Mean Corpuscular Volume 98 fL (80-100); NEUTROPHILS ABSOLUTE AUTO 4.26 K/mm3 (1.96-9.15); NEUTROPHILS PERCENT AUTO 52 % (41-73); NRBC ABSOLUTE 0.29 K/mm3 (0.00-0.02); NRBC Auto 3.5 /100 WBC (0.0-0.2); Platelet Count 182 K/mm3 (150-400); RDW Coefficient Variation 16.4 % (11.7-14.2); RDW Standard Deviation 58.2 fL (35.1-46.3); Red Blood Cell Count 4.04 M/mm3 (4.30-5.90); White Blood Cell Count 8.24 K/mm3 (4.00-11.30)
[2020-01-28 04:17] LABS: Anion Gap 4 mmol/L (6-16); Blood Urea Nitrogen 22 mg/dL (8-24); Bun/Creatinine Ratio 38.6 (12.0-20.0); CO2, Blood 25 mmol/L (21-32); Calcium, Blood 8.3 mg/dL (8.5-10.1); Chloride, Blood 110 mmol/L (98-108); Creatinine, Blood 0.57 mg/dL (0.60-1.20); Glomerular Filtration Rate >60 (60-); Glucose, Blood 76 mg/dL (70-99); Potassium, Blood 4.3 mmol/L (3.5-5.5); Sodium, Blood 139 mmol/L (136-145)
--- NOTE | 2020-01-28 06:12 | NUR ---
NO ACUTE CHANGES T/O SHIFT. PT IS A&O, DENIES ANY SI. VSS. SLEPT MAJORITY OF THE TIME I CARED FOR HIM
--- NOTE | 2020-01-28 08:00 | NUR ---
INITIAL ASSESSMENT PATIENT SITTING IN BED SPEAKING WITH SITTER UPON ENTERING. PATIENT HAPPY, EUPHORIC, COOPERATIVE. PATIENT ALERT AND ORIENTED TO SELF, HOSPITAL, EVENT, FAMILY, FOLLOWING DIRECTIONS. PATIENT NOT ORIENTED AT FIRST TO TOWN OR DATE, BUT WAS REORIENTED BY NURSE. PATIENT WEAK BUT ABLE TO MOVE ALL EXTREMITIES. PATIENT AFEBRILE. PATIENT STATES HE HAS CHRONIC BACK PAIN BUT THAT IT IS MANAGEABLE AT THIS TIME. PATIENT SATTING 90% AND GREATER ON RA. LUNGS CLEAR THROUGHOUT. PATIENT DENIES COUGH. PATIENT IN SR, HR 80. SBP 150S. ABDOMEN MODERATELY DISTENDED, SOFT, WITH NORMOACTIVE BS NOTED. PATIENT ON PUREE DIET AND NECTAR THICK LIQUIDS. LAST BM 01/25. EDWARDS DRAINING SAIRA COLORED URINE. SCATTERED SCARS, SCABS AND BRUISES NOTED. RASHES TO GROIN AND ABDOMINAL FOLDS. BILAT RA ABRASIONS NOTED. PATIENT RECEIVING ROCEPHIN. BED LOW, CALL LIGHT IN REACH. WILL CONTINUE TO MONITOR PATIENT FREQUENTLY THROUGHOUT SHIFT.
--- NOTE | 2020-01-28 12:00 | NUR ---
PATIENT GIVEN PRN TYLENOL FOR COMPLAINTS OF TOOTH ACHE. PATIENT REPORTS RELIEF. NO OTHER ACUTE CHANGES TO NOTE ON AT THIS TIME. WILL CONTINUE TO MONITOR.
--- NOTE | 2020-01-28 13:07 | NUR ---
TELEPSYCH COMPUTER MEETING COMPLETE.
--- NOTE | 2020-01-28 14:26 | NUR ---
SHIFT SUMMARY PATIENT HAS REMAINED ALERT AND MOSTLY ORIENTED T/O SHIFT. PATIENT REMAINED AFEBRILE. PATIENT HAS REMAINED CALM, COOPERATIVE AND HAPPY. PATIENT CONTINUES TO DENY SI. PATIENT HAD TELEPSYCH APPOINTMENT SHORT TIME AGO. TELEPSYCH RECOMMENDING INPATIENT PSYCH HOSPITALIZATION. PATIENT DOWNGRADED FROM HIGH SUICIDE RISK TO MODERATE SUICIDE RISK. PATIENT GIVEN PRN TYLENOL OT FOR COMPLAINT OF TOOTHACHE. PATIENT REPORTED RELIEF. PATIENT WORKED WITH PT THIS AM. PATIENT AMBULATING WELL WITH 1 PERSON ASSIST AND FWW. PT STATED THAT PATIENT A LITTLE UNSTEADY WHEN MAKING SHARP TURNS. PATIENT HAS REMAINED SATTING 90% AND GREATER ON RA. PATIENT HAS REMAINED IN SR. VITAL SIGNS STABLE. PATIENT HAD BM THIS SHIFT. GRACE DC'D THIS AM; PATIENT HAS VOIDED SINCE. NO CHANGE TO SKIN. PATIENT REPOSITIONING SELF IN BED. PATIENT HAS NO COMPLAINTS AT THIS TIME.
--- NOTE | 2020-01-28 15:25 | NUR ---
PATIENT TRANSFERRED TO MEDICAL FLOOR, ROOM 344 SUCCESSFULLY. MESSAGE LEFT FOR PATIENT'S SISTER, KRYS, ABOUT PATIENT TRANSFER PER PATIENT REQUEST.
--- NOTE | 2020-01-28 15:38 | NUR ---
PATIENT BROUGHT TO THE FLOOR FROM ICU. PATIENT HAS SLURRED SPEECH, PLEASANT DEMEANOR AND ASKED TO WATCH TELEVISION. DID REQUEST FOR THE SOUND TO BE TURNED UP. CHECKED IN WITH REMOTE ECHOCARDIOGRAPHY TECH PRIOR TO THE PATIENT ARRIVING TO CHECK VISUAL AND LOOK FOR VISUAL OBSTRUCTION. NO ACUTE CONCERNS PER THE ECHOCARDIOGRAPHY TECH. ENVIRONMENTAL CHECK LIST DONE WITH CHAPITO CANTU RN WELL. PATIENT DENIES ANY CURRENT SUICIDAL IDEATION. HIS BELONGINGS HAVE BEEN LOCKED IN HIS CLOSET AT THIS TIME.
--- NOTE | 2020-01-29 03:43 | NUR ---
SUMMARY: PT A/OX3 BUT CONFUSED TO MONTH. HE ANSWERS ALL OTHER Q'S CORRECTLY AND IS PLEASANT/COOPERATIVE. HE OCCASIONALLY FORGETS TO CALL FOR ASSIST SO BED ALARM ARMED W/CAMERA MONITORING IN PLACE. HE REMAINS ON 2 MD HOLD BUT NO SI EXPRESSED. SBA W/FWW FOR WEAKNESS. HE USED URINAL AND TOILET TO VOID AND PT REFUSED BOWEL MEDS D/T "NO ISSUES THERE". BLE'S ARE DISCOLORED AND SWOLLEN AND WERE ELEVATED IN BED. PANNUSGROIN ARE RED/RASHY W/NYSTATIN APPLIED. SCATTERED ABRASIONS OBSERVED TO EXT'S AND CLEAR OCCLUSIVE DX PRESENT TO R.NECK FROM PREVIOUS CENTRAL LINE. PICC SL. HE'S TOLERATING PUREE DIET W/NECTAR THICK LIQ'S AND PILLS CRUSHED IN APPLESAUCE, NO S/S ASPIRATION, REPEAT SWALLOW EVAL PLANNED THIS AM. NO ACUTE CHANGES, VSS AND AFEBRILE. WCTM/REPORT TO DAY RN.
--- NOTE | 2020-01-29 07:50 | NUR ---
CONFIRMED WITH SUPERINTENDENT GEOPHYSICAL LABORATORYBRYAN SHEPARD, CURRENT VISUALIZATION OF PATIENT ON CAMERA.
--- NOTE | 2020-01-29 13:38 | NUR ---
Safety Plan interview completed at request of Medical Budget And Policy Analyst. Pt on involuntary hold. Pt had been in ICU intubated for previous week. Pt presented as very verbal, cheerful, and joked. Sister, Rocael, was present during interview. Tobyas Lathing Supervisor for Hold, Roseann, arrived during ointerview. Pt denie suicidal ideation or wanting to . He voived plans to go live with his brother again. Pt reports he drove himself to hospital and parked in lot, took and "extra Suboxone to sleep", and reports he leaned on whell when asleep honking the horn. He reports he had a disagreement with his brother that night, and "needed space". Pt denies any previous attempts to harm himself. He displayed some push of speech, and inability at times to convey chain of events that led to hospitalization. he reports he drinks rarely, and sister agreed. He had seen Dr. Lane at [facility] until Lane left to work for [employer]. He currently reports he sees jose daniel Mendez at [facility], and talks to "Zo 1x per month there to check in". Lathing Supervisor Roseann informed him that [facility] could help with locating housing, income--pt agreed he would like to f/u with [facility] for those services. He also requested help to get a oil scout, as he has a foot problem. developer advisor and Case Aleksey informed of patient needs for DC planning. Pt is anxious to see Dr. Mancini. Pt does report he was on Suboxone prior to admission, and will need help for f/u. Patient was being seen by PT, has a walker un his room. Pt reports he is weak from being in the hospital for "so long". Crisis phone umbres reviewed wtth him. He was not able to focus upon thoughts/feelings leading to suicidal intent, as he denied any SI. He was emphatice that he would come to the hospital again if he needed assist. Betsy Rodriguez M.Ed., [facility] Behavior Health Director
--- NOTE | 2020-01-29 13:53 | NUR ---
PT DC'D FROM ALL SUICIDE PRECAUTIONS PER DR RODRIGUEZ. REGULAR LENGTH CALL LIGHT GIVEN TO PT. WILL BEGIN REINSTATING ROOM TO FOLLOW ORDERS.
--- NOTE | 2020-01-29 17:24 | NUR ---
SHIFT SUMMARY PT A&O X4. PLEASANT AND COOPERATIVE TO WORK WITH. PT SAW MIDDLEKAUFF TODAY AND WAS DC'D FROM SI PRECAUTIONS. BEHAVIOR HAS BEEN APPROPRIATE. PER SPEECH THERAPY, ADVANCE TO MECHANICAL SOFT DIET. PT TOLERATED DIET WELL. 1 PERSON SBA WITH FWW TO BATHROOM. AMBULATED AROUND ROOM WITH PT TODAY WITHOUT DIFFICULTY. DISCHARGE PLACEMENT PENDING. VITALS REVIEWED. PT DENIES ANY PAIN AT THIS TIME. BED ALARM ON. PT RESTING COMFORTABLY IN RECLINER WITH CALL LIGHT IN HAND.
--- NOTE | 2020-01-30 07:07 | NUR ---
01/30/20 0600 PT SLEPT WELL LAST NIGHT. VITALS REMAIN STABLE. SKIN LACERATIONS HEALING WELL. DENIED ANY PAIN THIS SHIFT. REFUSED COLASE LAST NIGHT. TAKING ORAL FOODS/FLUIDS WELL.
--- NOTE | 2020-01-30 10:54 | NUR ---
Met pt. sitting up in his bed he reports doing fine , encouraged pt. and offered prayers
--- NOTE | 2020-01-30 17:44 | NUR ---
SHIFT SUMMARY PT A&OX4. PLEASANT AND COOPERATIVE WITH CARE TODAY. DR RODRIGUEZ AND DR TATE CLEARED FOR DISCHARGE. CASE MANAGEMENT WORKING ON PLACEMENT. PT IS CURRENTLY HOMELESS. PT C/O GENERALIZED WEAKNESS, BUT AMBULATING WELL WITH FWW WITH SBA. TOLERATING MECHANICAL SOFT DIET WELL. BANDAGE REMOVED FROM R SIDE NECK FROM OLD CENTRAL LINE ACCESS. SITE CLEAN, DRY, INTACT, WITHOUT BRUISING, OR DRAINAGE. PT C/O MILD BACK PAIN TODAY. NEURONTIN INCREASED TO BID FOR CHRONIC NEUROPATHY. PT RELAXING IN RECLINER WITH CALL LIGHT IN REACH. VITALS REVIEWED.
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
--- NOTE | 2020-01-31 04:51 | NUR ---
01/31/20 0450 AWAKENED FOR AM VITALS. DENIES ANY S/S OR DISCOMFORT. VITALS STABLE. PT PLANNING TO GO BACK TO SLEEP. UNEVENTFUL NIGHT.
--- NOTE | 2020-01-31 08:00 | NUR ---
PT PLEASANT TALKATIVE. A/O X3. STATES PAIN LEVEL COMFORTABLE AND WILL IMPROVE WITH NEURONTIN DOSE THIS AM. H/R REG, NO MURMER NOTED. NO TELE. LUNGS CLEAR, RESP EASY, UNLABORD. ON R.A. BT X4 STATES LAST BM YEST, NORMAL. VOIDS URINAL OR SBA TO BATHROOM FWW. BED IN LOW POSITION, CALL LITE IN REACH, CALLS APPROP, BED ALARM ON FOR SAFETY
--- NOTE | 2020-01-31 12:09 | NUR ---
discharge reviewed with pt. rashida sanz. pulled picc. approved. pt verbalized understanding meds and inst. no tele. pt to dress self. poss shower prior to fo home. bed in low position, call lite in reach, calls approp,. bed alarm on for safety
--- NOTE | 2020-01-31 12:28 | NUR ---
pt out door at 1228 with aide.
--- NOTE | 2020-01-31 13:19 | NUR ---
Met. pt. sitting in a chair and on phone he report doing well and may go home today or tavarez.
== END 2020-01-31 12:30 | disposition home or self-care (01) | DRG 917 ==
LOC: ER 17:35 → EDBEDREQTM 22:01 → EDBEDREQ 22:01 → EDBEDREQSVC 22:01 → ICUW 22:02 → ER 22:02 → ICUW 22:15 → MEDS 23:42 → ICUW 23:43 → MEDS 01-28 15:13
PROVIDERS: Emergency Medicine; Family Medicine; Internal Medicine Critical Care Medicine; Internal Medicine Pulmonary Disease; Pharmacist; ADMIT Internal Medicine
PROC: 0BH18EZ Insertion of Endotracheal Airway into Trachea, Via Natural or Artificial Opening Endoscopic (ICD-10-PCS; principal; 2020-01-18)
PROC: 5A1955Z Respiratory Ventilation, Greater than 96 Consecutive Hours (ICD-10-PCS; 2020-01-18)
DX: T50.912A Poisoning by multiple unspecified drugs, medicaments and biological substances, intentional self-harm, initial encounter (principal); G92 Toxic encephalopathy; J96.00 Acute respiratory failure, unspecified whether with hypoxia or hypercapnia; J18.9 Pneumonia, unspecified organism; J15.211 Pneumonia due to Methicillin susceptible Staphylococcus aureus; D69.3 Immune thrombocytopenic purpura; I10 Essential (primary) hypertension; D69.6 Thrombocytopenia, unspecified; F17.210 Nicotine dependence, cigarettes, uncomplicated; F19.10 Other psychoactive substance abuse, uncomplicated; F32.9 Major depressive disorder, single episode, unspecified; E66.9 Obesity, unspecified; K74.60 Unspecified cirrhosis of liver; F10.10 Alcohol abuse, uncomplicated; Y90.0 Blood alcohol level of less than 20 mg/100 ml; G89.29 Other chronic pain; F20.9 Schizophrenia, unspecified; Y92.238 Other place in hospital as the place of occurrence of the external cause; Z68.34 Body mass index [BMI] 34.0-34.9, adult
CPT/HCPCS: 31500; 31720; 36415; 36556; 36569; 36600; 51702; 70450; 71045; 71260; 72125; 74177; 80047; 80048; 80053; 80069; 80074; 80076; 80202; 82550; 82553; 82803; 82947; 83605; 83690; 83735; 83880; 84100; 85014; 85025; 85610; 87070; 87077; 87147; 87185; 87186; 87205; 92526; 92610; 93005; 93010; 94002; 94003; 94640; 94770; 95819; 96372-59; 96374-59; 96375-59; 97110; 97116; 97161; 99285-25; A9270; A9270-GY; C1751; C9113; G0480; J0330; J0360; J0696; J1200; J1650; J1940; J2250; J2310; J2543; J2704; J2930; J3010; J3370; J3411; J3475; J3480; J7030; J7042; J7050; P9046; Q9967

== ENCOUNTER → 2020-03-08 | Outpatient (CLI) | payer OTHER ==
[~2020-03-08] MED LIST changes: +AMPDEX10CR PO; +BUPRENORPHINE HC2 M1 SL; +CIPR500 PO; +CLON.5 PO; +CLON1 PO; +CLONAZEPAM1 MG PO; +GABA300 PO; +PROM25 PO; +SUBOXONE 8 MG-1 EACH; +SUBOXONE 8 MG-1 EACH SL
== END | disposition home or self-care (01) ==
LOC: LAB SHORT 18:03 → LAB 18:03
DX: S91.302A Unspecified open wound, left foot, initial encounter (principal)
CPT/HCPCS: 87070; 87077; 87186; 87205

== ENCOUNTER 2020-03-14 12:40 | Emergency (ER) | payer OTHER ==
[~2020-03-14] VITALS: Ht 180.3 cm; Wt 127.0 kg
[~2020-03-14 12:40] MED LIST changes: -BUPRENORPHINE HC2 M1 SL; -CIPR500 PO; -CLONAZEPAM1 MG PO
[2020-03-14] MEDS ORDERED: BUPRENORPHINE HC2 M1 SL (13:49)
[2020-03-14] MEDS ORDERED: CLONAZEPAM1 MG PO (13:50)
[2020-03-14] MEDS ORDERED: CIPR500 PO (17:06)
== END 2020-03-14 17:33 | disposition home or self-care (01) ==
LOC: ER 12:40
DX: Z01.812 Encounter for preprocedural laboratory examination (principal); L89.629 Pressure ulcer of left heel, unspecified stage; Z20.828 Contact with and (suspected) exposure to other viral communicable diseases; I10 Essential (primary) hypertension; F90.9 Attention-deficit hyperactivity disorder, unspecified type; F17.210 Nicotine dependence, cigarettes, uncomplicated; Z88.6 Allergy status to analgesic agent; Z91.041 Radiographic dye allergy status; Z79.899 Other long term (current) drug therapy
CPT/HCPCS: 99283; U0003

== ENCOUNTER 2020-08-27 14:10 | Inpatient (IN) | payer OTHER ==
[~2020-08-27] VITALS: Ht 180.3 cm; Wt 137.0 kg
[~2020-08-27 14:10] MED LIST changes: +BUPRENORPHINE HC2 M1 SL; +CIPR500 PO; +CLONAZEPAM1 MG PO
[2020-08-27 15:54] LABS: Influenza A, PCR NEGATIVE (NEGATIVE); Influenza B, PCR NEGATIVE (NEGATIVE); Resp Syncytial Virus, PCR NEGATIVE (NEGATIVE); SARS-Cov-2 (COVID-19) PCR, MMC NEGATIVE (NEGATIVE)
[2020-08-27 16:42] LABS: BASOPHILS ABSOLUTE AUTO 0.04 K/mm3 (0.00-0.23); BASOPHILS PERCENT AUTO 1 % (0-2); EOSINOPHILS ABSOLUTE AUTO 0.13 K/mm3 (0.00-0.68); EOSINOPHILS PERCENT AUTO 2 % (0-6); Hematocrit 39.6 % (37.0-53.0); Hemoglobin 13.2 g/dL (13.5-17.5); IMMATURE GRAN ABSOLUTE AUTO 0.02 K/mm3 (0.00-0.10); IMMATURE GRAN PERCENT AUTO 0 % (0-1); LYMPHOCYTES ABSOLUTE AUTO 1.85 K/mm3 (0.84-5.20); LYMPHOCYTES PERCENT AUTO 27 % (21-46); MONOCYTES PERCENT AUTO 12 % (4-13); Mean Corpuscular HGB 33.8 pg (26.0-34.0); Mean Corpuscular HGB Conc 33.3 g/dL (31.5-36.5); Mean Corpuscular Volume 101 fL (80-100); Mean Platelet Volume 12.6 fL (9.1-12.4); NEUTROPHILS ABSOLUTE AUTO 4.14 K/mm3 (1.96-9.15); NEUTROPHILS PERCENT AUTO 59 % (41-73); Platelet Count 52 K/mm3 (150-400); RDW Coefficient Variation 18.7 % (11.7-14.2); RDW Standard Deviation 69.9 fL (35.1-46.3); Red Blood Cell Count 3.91 M/mm3 (4.30-5.90); White Blood Cell Count 6.98 K/mm3 (4.00-11.30)
[2020-08-27 16:57] LABS: Alanine Aminotransfer (ALT/SGP 197 U/L (12-78); Albumin, Blood 2.1 g/dL (3.4-5.0); Albumin/Globulin Ratio 0.4 (0.8-1.8); Alk Phos 333 U/L (50-136); Anion Gap 1 mmol/L (6-16); Aspartate Aminotrans (AST/SGOT 251 U/L (12-37); Bilirubin, Total 1.3 mg/dL (0.1-1.0); Blood Urea Nitrogen 18 mg/dL (8-24); Bun/Creatinine Ratio 24.6 (12.0-20.0); CO2, Blood 28 mmol/L (21-32); Calcium, Blood 8.2 mg/dL (8.5-10.1); Chloride, Blood 112 mmol/L (98-108); Creatinine, Blood 0.73 mg/dL (0.60-1.20); Ethanol (Alcohol), Blood, Med <3 mg/dL; Globulin, Blood 5.4 g/dL (2.2-4.0); Glomerular Filtration Rate >60 (60-); Glucose, Blood 95 mg/dL (70-99); Potassium, Blood 4.2 mmol/L (3.5-5.5); Sodium, Blood 141 mmol/L (136-145); Total Protein, Blood 7.5 g/dL (6.4-8.2); Troponin I <0.015 ng/mL (0.000-0.040)
[2020-08-27] MEDS ORDERED: SERT20L (16:59)
[2020-08-27] MEDS ORDERED: Catapres0.2 MG PO (17:01)
[2020-08-27] MEDS ORDERED: PROM25 PO (17:02)
[2020-08-27 17:49] LABS: U Amphetamine Screen Not Detected; U Barbituate Screen Not Detected; U Benzodiazapine Screen Not Detected; U Buprenorphine Screen DETECTED; U Cannabinoids Screen Not Detected; U Cocaine Screen Not Detected; U Methadone Screen Not Detected; U Methamphetamine Screen Not Detected; U Opiates Screen Not Detected; U Oxycodone Screen Not Detected; U Phencyclidine Screen Not Detected; U Propoxyphene Screen Not Detected
[2020-08-27] MEDS ORDERED: SUBOXONE 8 MG-1 EACH SL (20:06)
[2020-08-27] MEDS ORDERED: BUPRENO-NALOX1 EAC2 SL (20:06)
[2020-08-27] MEDS ORDERED: SERT50 PO (20:16)
[2020-08-27] MEDS ORDERED: TRAZ150T57 PO (20:17)
[2020-08-27] MEDS ORDERED: PROMETHAZINE HC50 MG PO (20:17)
[2020-08-27] MEDS ORDERED: OLANZAPINE PO (20:19)
--- NOTE | 2020-08-27 22:28 | NUR ---
Transfer report on 55 year old Male with cirrosis & hx of polysubstance abuse being admitted with acute encephalopathy, elevated LFTs. Head CT ABD CT & CXR done. PT on suboxone for hx of heroin abuse drug screen etoh screen neg. Await admission.
[2020-08-27] MEDS ORDERED: AMPDEX5 PO (23:38)
--- NOTE | 2020-08-27 23:55 | NUR ---
PT with remote hx of suicide attempt over 1 year ago denies any current ideation
--- NOTE | 2020-08-28 06:14 | NUR ---
PT admitted with hepatic encephalopathy. He has been cooperative & able to communicate. He is homeless lives in his car & brought his multiple home meds to hospital with him. He is on controlled substances which he keeps on his person. Sent all rx to pharmacy for storage & his money to security had 1402 $ stimulus money in wallet. PT had been incont of bowel movement & urine on way to medical floor 0 stool since. Rule out cdiff order PT's PT in contact isolation. Appetite good. On tele with tachycardia rate up rto 114. PT appears to lack social support, has friend no family involvement.
[2020-08-28 06:27] LABS: BASOPHILS ABSOLUTE AUTO 0.06 K/mm3 (0.00-0.23); BASOPHILS PERCENT AUTO 1 % (0-2); EOSINOPHILS ABSOLUTE AUTO 0.17 K/mm3 (0.00-0.68); EOSINOPHILS PERCENT AUTO 2 % (0-6); Hematocrit 36.3 % (37.0-53.0); Hemoglobin 12.4 g/dL (13.5-17.5); IMMATURE GRAN ABSOLUTE AUTO 0.02 K/mm3 (0.00-0.10); IMMATURE GRAN PERCENT AUTO 0 % (0-1); LYMPHOCYTES ABSOLUTE AUTO 2.08 K/mm3 (0.84-5.20); LYMPHOCYTES PERCENT AUTO 30 % (21-46); MONOCYTES ABSOLUTE AUTO 0.79 K/mm3 (0.16-1.47); MONOCYTES PERCENT AUTO 11 % (4-13); Mean Corpuscular HGB Conc 34.2 g/dL (31.5-36.5); Mean Corpuscular Volume 100 fL (80-100); NEUTROPHILS PERCENT AUTO 56 % (41-73); Platelet Count 57 K/mm3 (150-400); RDW Coefficient Variation 18.7 % (11.7-14.2); RDW Standard Deviation 68.7 fL (35.1-46.3); Red Blood Cell Count 3.65 M/mm3 (4.30-5.90); White Blood Cell Count 7.02 K/mm3 (4.00-11.30)
[2020-08-28 06:42] LABS: Mean Platelet Volume 12.9 fL (9.1-12.4)
[2020-08-28 06:50] LABS: Alanine Aminotransfer (ALT/SGP 182 U/L (12-78); Albumin, Blood 1.9 g/dL (3.4-5.0); Albumin/Globulin Ratio 0.4 (0.8-1.8); Alk Phos 272 U/L (50-136); Anion Gap 3 mmol/L (6-16); Aspartate Aminotrans (AST/SGOT 251 U/L (12-37); Bilirubin, Total 1.5 mg/dL (0.1-1.0); Blood Urea Nitrogen 18 mg/dL (8-24); Bun/Creatinine Ratio 24.7 (12.0-20.0); CO2, Blood 29 mmol/L (21-32); Calcium, Blood 7.9 mg/dL (8.5-10.1); Chloride, Blood 112 mmol/L (98-108); Creatinine, Blood 0.73 mg/dL (0.60-1.20); Glomerular Filtration Rate >60 (60-); Glucose, Blood 110 mg/dL (70-99); Sodium, Blood 144 mmol/L (136-145); Total Protein, Blood 6.9 g/dL (6.4-8.2)
--- NOTE | 2020-08-28 18:29 | NUR ---
SHIFT SUMMARY: NO ACUTE EVENTS. PT REQUESTED NARCOTIC PAIN MEDS FOR BACK PAIN, ANXIETY MEDICATION; EDUCATED THAT, SINCE HE CAME IN WITH AMS AND CONFUSION, THOSE ITEMS WOULD NOT BE PRESCRIBED FOR HIM. APPLIED LIDOCAINE AND NICOTINE PATCHES. SLEPT ALL AFTERNOON. NO EVENTS ON TELEMETRY, SINUS TACH AT 110'S. NO BM TODAY, STILL AWAITING SPECIMEN TO SEND TO R/O C DIFF. REFUSING SCD'S D/T SCARRING ON BLE CAUSING SOME DISCOMFORT. INCONTINENT OF BLADDER X 2. MENTATION HAS CLEARED SLIGHTLY SINCE THIS MORNING.
[2020-08-28 20:47] LABS: C DIFFICILE DNA NEGATIVE (Negative)
--- NOTE | 2020-08-28 22:33 | NUR ---
PT was incontinent of stool & urine reported on day shift, & around 1999 he was trying to get OOB unassisted & had large amt of fecal incont again. He is drowsey in between requests for Pepsi & food. He is very unsteady weak & continues edematous & confused about his capability for safe ambulation. PT stool sample sent at shift change & is CDIff negative. Holding HS meds until PT is alert enough to take them. Bed alarm fall precautions in place.
--- NOTE | 2020-08-29 01:45 | NUR ---
PT continues sedate & rouses intermittanly confused. Held HS meds due to confusion cirrosis elevated ammonia & LFT. Had been incont of stool several times so held lactulose. Says he has legal issues pending in [place] & that his insurance defense attorney was calling here at 1102 AM or PM. Asks about food while awake & pepsi then falls back asleep. Does not usually use call ross, calls out. Bed alarm on due to confusion & unsteady gait.
[2020-08-29 05:10] LABS: BASOPHILS ABSOLUTE AUTO 0.04 K/mm3 (0.00-0.23); BASOPHILS PERCENT AUTO 1 % (0-2); EOSINOPHILS ABSOLUTE AUTO 0.15 K/mm3 (0.00-0.68); EOSINOPHILS PERCENT AUTO 2 % (0-6); Hematocrit 32.9 % (37.0-53.0); Hemoglobin 11.3 g/dL (13.5-17.5); IMMATURE GRAN ABSOLUTE AUTO 0.02 K/mm3 (0.00-0.10); IMMATURE GRAN PERCENT AUTO 0 % (0-1); LYMPHOCYTES ABSOLUTE AUTO 2.88 K/mm3 (0.84-5.20); LYMPHOCYTES PERCENT AUTO 35 % (21-46); MONOCYTES ABSOLUTE AUTO 1.19 K/mm3 (0.16-1.47); MONOCYTES PERCENT AUTO 14 % (4-13); Mean Corpuscular HGB 33.9 pg (26.0-34.0); Mean Corpuscular HGB Conc 34.3 g/dL (31.5-36.5); Mean Corpuscular Volume 99 fL (80-100); Mean Platelet Volume 11.4 fL (9.1-12.4); NEUTROPHILS ABSOLUTE AUTO 4.01 K/mm3 (1.96-9.15); NEUTROPHILS PERCENT AUTO 48 % (41-73); Platelet Count 57 K/mm3 (150-400); RDW Coefficient Variation 18.6 % (11.7-14.2); RDW Standard Deviation 67.9 fL (35.1-46.3); Red Blood Cell Count 3.33 M/mm3 (4.30-5.90); White Blood Cell Count 8.29 K/mm3 (4.00-11.30)
[2020-08-29 05:30] LABS: Alanine Aminotransfer (ALT/SGP 149 U/L (12-78); Albumin, Blood 1.7 g/dL (3.4-5.0); Albumin/Globulin Ratio 0.4 (0.8-1.8); Alk Phos 224 U/L (50-136); Anion Gap 3 mmol/L (6-16); Aspartate Aminotrans (AST/SGOT 203 U/L (12-37); Bilirubin, Total 1.6 mg/dL (0.1-1.0); Blood Urea Nitrogen 16 mg/dL (8-24); Bun/Creatinine Ratio 19.9 (12.0-20.0); CO2, Blood 29 mmol/L (21-32); Calcium, Blood 7.7 mg/dL (8.5-10.1); Chloride, Blood 112 mmol/L (98-108); Globulin, Blood 4.5 g/dL (2.2-4.0); Glomerular Filtration Rate >60 (60-); Glucose, Blood 95 mg/dL (70-99); Potassium, Blood 3.7 mmol/L (3.5-5.5); Sodium, Blood 144 mmol/L (136-145); Total Protein, Blood 6.2 g/dL (6.4-8.2)
--- NOTE | 2020-08-29 05:59 | NUR ---
PT was sedate & confused most of shift. He roused this AM much more alert & oriented. I held his neurontin 900 mg at hs as well as suboxone & clonidine. He was awake early this AM requesting these RX so gave this AM as per PT request. Mild confusion. He was able to ambulate to bathroom this AM for BM with SBA, continues high fall risk.
--- NOTE | 2020-08-29 17:23 | NUR ---
SHIFT SUMMARY PT AxOx4. PLEASANT AND COOPERATIVE WITH CARE. PT WORKED WITH PHYSICAL AND OCCUPATIONAL THERAPY TODAY. INDEPENDENT IN THE ROOM NOW. GOOD INTAKE AND OUTPUT. PT REPORTS MULTIPLE LOOSE STOOLS. CURRENT PLAN IS TO MONITOR FOR IMPROVED MENTATION AND DECREASED AMMONIA LEVELS. PT IS HOMELESS/LIVES IN HIS CAR. CASE MANAGEMENT INVOLVED REGARDING SAFE DISCHARGE. VITALS REVIEWED. PT CURRENTLY RESTING IN BED WITH CALL LIGHT IN REACH. DENIES ANY NEEDS AT THIS TIME.
--- NOTE | 2020-08-29 22:32 | NUR ---
ASSUMPTION OF CARE. VICENTE IS ASKING ABOUT HIS MEDS ONCE AGAIN. HE HAS REPEATED HIS DOSAGE MULTIPLE TIMES WHILE I WAS IN THE ROOM EVEN WHEN I TOLD HIM I ALREADY KNEW. HE FELT COMPELLED TO DO SO. HE HAS BEEN UP TO THE BATHROOM INDEPENDENTLY. ONLY SMALL LOOSE STOOLS. MAY NOT MAKE IT SOME OF THE TIME. IS TALKING ABOUT BEING DC'D TOMORROW AND GOING BACK TO LIVE IN HIS CAR. MEDS GIVEN. DENIES ANY OTHER CONCERNS.
--- NOTE | 2020-08-30 05:24 | NUR ---
SHIFT SUMMARY: AOX3, INDEPENDENT IN THE ROOM. HAS REPETATIVE SPEECH ESPECIALLY ABOUT HIS MEDICATIONS. FEELS COMPELLED TO TELL HIS DOSAGE OVER AND OVER AGAIN. EVEN AFTER EXPLAINING TO HIM ABOUT EASING BACK ON TO HIS MEDS. COOPERTIVE. NO ACCIDENTS THIS SHIFT. VS WNL, DID HAVE A 103 HR THAT RETURNED TO NORMAL. GOOD APPETITE. CHRONIC PAIN. SLEPT WELL T/O NIGHT. NO CHANGES TO REPORT. CALL LIGHT IS IN REACH.
--- NOTE | 2020-08-30 17:05 | NUR ---
SUMMARY PT SITTING UP IN BED WATCHING TV, PT HAS BEEN PLEASANT AND COOPERATIVE T/O THE DAY, HAS BEEN IN TOUCH WITH HIS NUCLEAR POWERPLANT MECHANIC TO ASSIST IN HIS DISCHARGE PLAN, PT HOPEFUL TO DC TOMORROW OR THE NEXT DAY, PT HAS BEEN UP TO THE SHOWER, PT HAS TAKEN HIS LACTULOSE AND HAS HAD SEVERAL LOOSE STOOLS, VSS, WILL CONT TO MONITOR
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
[2020-08-31] MEDS ORDERED: Kristalose20 GM PO (12:29)
[2020-08-31] MEDS ORDERED: LIDOCAINE1 EAC1 TOP (12:31)
--- NOTE | 2020-08-31 14:52 | NUR ---
DISCHARGE NOTE- PT WAS GIVEN VERBAL AND WRITTEN DISCHARGE INSTRUCTIONS AND ACKNOWLEDGED UNDERSTANDING OF THEM. IV DC'D PRIOR TO DISCHARGE. PT REFUSED 1400 DOSE OF LACTULOSE D/T DISCHARGE. NO FURTHER QUESTIONS AT THE TIME OF DISCHARGE. PT ESCORTED OUT VIA WC BY THE DIRECTOR PAYMENT TAKEN TO RETRIEVE BELONGINGS FROM SECURITY. MEDICATIONS RETRIEVED FROM PHARMACY AND RETURNED TO THE PT PRIOR TO DISCHARGE.
== END 2020-08-31 14:20 | disposition home or self-care (01) | DRG 441 ==
LOC: ER 14:10 → MEDS 14:11
PROVIDERS: Emergency Medicine; Internal Medicine; ADMIT Internal Medicine
DX: K72.00 Acute and subacute hepatic failure without coma (principal); G92 Toxic encephalopathy; K74.60 Unspecified cirrhosis of liver; F20.9 Schizophrenia, unspecified; Z20.822 Contact with and (suspected) exposure to COVID-19; R19.7 Diarrhea, unspecified; D69.6 Thrombocytopenia, unspecified; G89.29 Other chronic pain; I10 Essential (primary) hypertension; F90.9 Attention-deficit hyperactivity disorder, unspecified type; F32.9 Major depressive disorder, single episode, unspecified; F17.210 Nicotine dependence, cigarettes, uncomplicated; Z88.6 Allergy status to analgesic agent; Z91.041 Radiographic dye allergy status; Z79.899 Other long term (current) drug therapy; Z86.73 Personal history of transient ischemic attack (TIA), and cerebral infarction without residual deficits; Z86.718 Personal history of other venous thrombosis and embolism; Z98.890 Other specified postprocedural states; Z59.0 Homelessness; Z91.19 Patient's noncompliance with other medical treatment and regimen
CPT/HCPCS: 0241U; 36415; 70450; 71045; 74176; 80053; 82140; 83735; 84443; 84484; 85025; 87493; 93005; 93010; 97110; 97162; 97165; 97535; 99285-25; A9270; G0378; G0480; J7030

== ENCOUNTER → 2020-09-05 | Outpatient (CLI) | payer OTHER ==
[~2020-09-05] MED LIST changes: +AMPDEX5 PO; +BUPRENO-NALOX1 EAC2 SL; +Kristalose20 GM PO; +LIDOCAINE1 EAC1 TOP; +OLANZAPINE15 M1 PO; +PROMETHAZINE HC50 MG PO; +SERT20L; +SERT50 PO
[2020-09-05 11:34] LABS: BASOPHILS ABSOLUTE AUTO 0.03 K/mm3 (0.00-0.23); BASOPHILS PERCENT AUTO 1 % (0-2); EOSINOPHILS ABSOLUTE AUTO 0.09 K/mm3 (0.00-0.68); EOSINOPHILS PERCENT AUTO 1 % (0-6); Hemoglobin 11.9 g/dL (13.5-17.5); IMMATURE GRAN ABSOLUTE AUTO 0.02 K/mm3 (0.00-0.10); IMMATURE GRAN PERCENT AUTO 0 % (0-1); LYMPHOCYTES ABSOLUTE AUTO 1.79 K/mm3 (0.84-5.20); LYMPHOCYTES PERCENT AUTO 28 % (21-46); MONOCYTES ABSOLUTE AUTO 0.77 K/mm3 (0.16-1.47); MONOCYTES PERCENT AUTO 12 % (4-13); Mean Corpuscular Volume 100 fL (80-100); NEUTROPHILS ABSOLUTE AUTO 3.65 K/mm3 (1.96-9.15); NEUTROPHILS PERCENT AUTO 58 % (41-73); RDW Coefficient Variation 18.4 % (11.7-14.2); RDW Standard Deviation 67.1 fL (35.1-46.3); White Blood Cell Count 6.35 K/mm3 (4.00-11.30)
[2020-09-05 11:50] LABS: Alanine Aminotransfer (ALT/SGP 209 U/L (12-78); Albumin, Blood 1.9 g/dL (3.4-5.0); Albumin/Globulin Ratio 0.4 (0.8-1.8); Alk Phos 302 U/L (40-126); Amylase, Blood 34 U/L (25-115); Anion Gap 9 mmol/L (6-16); Aspartate Aminotrans (AST/SGOT 349 U/L (12-37); Bilirubin, Total 1.5 mg/dL (0.1-1.0); Blood Urea Nitrogen 7 mg/dL (8-24); Bun/Creatinine Ratio 7.4 (12.0-20.0); CO2, Blood 27 mmol/L (21-32); Calcium, Blood 8.1 mg/dL (8.5-10.1); Chloride, Blood 104 mmol/L (98-108); Creatinine, Blood 0.94 mg/dL (0.60-1.20); Globulin, Blood 5.3 g/dL (2.2-4.0); Glomerular Filtration Rate >60 (60-); Glucose, Blood 117 mg/dL (70-99); Sodium, Blood 140 mmol/L (136-145); Total Protein, Blood 7.2 g/dL (6.4-8.2)
[2020-09-05 12:25] LABS: Mean Platelet Volume 11.2 fL (9.1-12.4); Platelet Count 86 K/mm3 (150-400)
== END | disposition home or self-care (01) ==
LOC: LAB SHORT 11:28
PROVIDERS: General Practice
DX: R22.41 Localized swelling, mass and lump, right lower limb (principal); R22.42 Localized swelling, mass and lump, left lower limb; K74.60 Unspecified cirrhosis of liver
CPT/HCPCS: 80053; 82150; 85025; 87070; 87077; 87147; 87186; 87205

== ENCOUNTER 2020-09-16 08:32 | Emergency (ER) | payer OTHER ==
[~2020-09-16] VITALS: Ht 180.3 cm; Wt 137.0 kg
[2020-09-16 09:56] LABS: BASOPHILS ABSOLUTE AUTO 0.05 K/mm3 (0.00-0.23); BASOPHILS PERCENT AUTO 1 % (0-2); EOSINOPHILS ABSOLUTE AUTO 0.02 K/mm3 (0.00-0.68); EOSINOPHILS PERCENT AUTO 0 % (0-6); Hematocrit 27.3 % (37.0-53.0); IMMATURE GRAN ABSOLUTE AUTO 0.05 K/mm3 (0.00-0.10); IMMATURE GRAN PERCENT AUTO 1 % (0-1); LYMPHOCYTES ABSOLUTE AUTO 1.23 K/mm3 (0.84-5.20); LYMPHOCYTES PERCENT AUTO 16 % (21-46); MONOCYTES ABSOLUTE AUTO 0.71 K/mm3 (0.16-1.47); MONOCYTES PERCENT AUTO 9 % (4-13); Mean Corpuscular HGB 34.1 pg (26.0-34.0); Mean Corpuscular Volume 103 fL (80-100); Mean Platelet Volume 10.4 fL (9.1-12.4); NEUTROPHILS ABSOLUTE AUTO 5.84 K/mm3 (1.96-9.15); NEUTROPHILS PERCENT AUTO 74 % (41-73); NRBC ABSOLUTE 0.02 K/mm3 (0.00-0.02); NRBC Auto 0.3 /100 WBC (0.0-0.2); Platelet Count 105 K/mm3 (150-400); RDW Coefficient Variation 19.6 % (11.7-14.2); RDW Standard Deviation 74.4 fL (35.1-46.3); Red Blood Cell Count 2.64 M/mm3 (4.30-5.90)
[2020-09-16 10:13] LABS: Alanine Aminotransfer (ALT/SGP 152 U/L (12-78); Albumin, Blood 1.7 g/dL (3.4-5.0); Albumin/Globulin Ratio 0.3 (0.8-1.8); Alk Phos 292 U/L (50-136); Anion Gap 7 mmol/L (6-16); Aspartate Aminotrans (AST/SGOT 314 U/L (12-37); Bilirubin, Total 1.7 mg/dL (0.1-1.0); Blood Urea Nitrogen 16 mg/dL (8-24); Bun/Creatinine Ratio 17.5 (12.0-20.0); CO2, Blood 23 mmol/L (21-32); Calcium, Blood 7.4 mg/dL (8.5-10.1); Chloride, Blood 108 mmol/L (98-108); Creatinine, Blood 0.92 mg/dL (0.60-1.20); Globulin, Blood 4.9 g/dL (2.2-4.0); Glomerular Filtration Rate >60 (60-); Glucose, Blood 176 mg/dL (70-99); Potassium, Blood 3.9 mmol/L (3.5-5.5); Sodium, Blood 138 mmol/L (136-145); Total Protein, Blood 6.6 g/dL (6.4-8.2); Troponin I <0.015 ng/mL (0.000-0.040)
[2020-09-16] MEDS ORDERED: ONDA4ODT SL (11:38)
[2020-09-16] MEDS ORDERED: Cephalexin500 MG PO (11:44)
[2020-09-16 11:53] LABS: U Amphetamine Screen Not Detected; U Barbituate Screen Not Detected; U Benzodiazapine Screen Not Detected; U Buprenorphine Screen DETECTED; U Cannabinoids Screen Not Detected; U Cocaine Screen Not Detected; U Methadone Screen Not Detected; U Methamphetamine Screen Not Detected; U Opiates Screen Not Detected; U Phencyclidine Screen Not Detected
[2020-09-16 11:54] LABS: U Oxycodone Screen Not Detected; U Propoxyphene Screen Not Detected
== END 2020-09-16 12:22 | disposition home or self-care (01) ==
LOC: ER 08:32
PROVIDERS: Emergency Medicine
DX: M54.17 Radiculopathy, lumbosacral region (principal)
CPT/HCPCS: 36415; 71046; 80053; 83880; 84484; 85025; 93005; 93010; 99284-25; A9270

== ENCOUNTER → 2020-09-18 | Outpatient (CLI) | payer OTHER ==
[~2020-09-18] MED LIST changes: +Cephalexin500 MG PO; +ENTECAVIR1 MG PO; +HYDCHL25 PO; +ONDA4ODT SL
[2020-09-18 18:36] LABS: Alanine Aminotransfer (ALT/SGP 153 U/L (12-78); Albumin, Blood 1.9 g/dL (3.4-5.0); Albumin/Globulin Ratio 0.4 (0.8-1.8); Alk Phos 326 U/L (50-136); Anion Gap 5 mmol/L (6-16); Aspartate Aminotrans (AST/SGOT 352 U/L (12-37); Bilirubin, Total 1.3 mg/dL (0.1-1.0); Blood Urea Nitrogen 16 mg/dL (8-24); Bun/Creatinine Ratio 18.3 (12.0-20.0); CO2, Blood 25 mmol/L (21-32); Calcium, Blood 7.7 mg/dL (8.5-10.1); Chloride, Blood 105 mmol/L (98-108); Creatinine, Blood 0.87 mg/dL (0.60-1.20); Glomerular Filtration Rate >60 (60-); Glucose, Blood 137 mg/dL (70-99); Potassium, Blood 5.2 mmol/L (3.5-5.5); Sodium, Blood 135 mmol/L (136-145); Total Protein, Blood 6.9 g/dL (6.4-8.2)
== END | disposition home or self-care (01) ==
LOC: LAB SHORT 17:57
PROVIDERS: Family Medicine
DX: K74.60 Unspecified cirrhosis of liver (principal)
CPT/HCPCS: 80053; 82140

== ENCOUNTER 2020-09-24 15:23 | Inpatient (IN) | payer OTHER ==
[~2020-09-24] VITALS: Ht 180.3 cm; Wt 145.2 kg
[~2020-09-24 15:23] MED LIST changes: -ENTECAVIR1 MG PO; -HYDCHL25 PO
[2020-09-24 16:10] LABS: BASOPHILS ABSOLUTE AUTO 0.05 K/mm3 (0.00-0.23); BASOPHILS PERCENT AUTO 1 % (0-2); EOSINOPHILS ABSOLUTE AUTO 0.08 K/mm3 (0.00-0.68); EOSINOPHILS PERCENT AUTO 1 % (0-6); Hematocrit 29.5 % (37.0-53.0); Hemoglobin 9.8 g/dL (13.5-17.5); IMMATURE GRAN ABSOLUTE AUTO 0.03 K/mm3 (0.00-0.10); IMMATURE GRAN PERCENT AUTO 0 % (0-1); LYMPHOCYTES ABSOLUTE AUTO 1.64 K/mm3 (0.84-5.20); LYMPHOCYTES PERCENT AUTO 23 % (21-46); MONOCYTES ABSOLUTE AUTO 0.83 K/mm3 (0.16-1.47); MONOCYTES PERCENT AUTO 12 % (4-13); Mean Corpuscular HGB 33.4 pg (26.0-34.0); Mean Corpuscular HGB Conc 33.2 g/dL (31.5-36.5); Mean Corpuscular Volume 101 fL (80-100); Mean Platelet Volume 11.3 fL (9.1-12.4); NEUTROPHILS ABSOLUTE AUTO 4.56 K/mm3 (1.96-9.15); NEUTROPHILS PERCENT AUTO 64 % (41-73); Platelet Count 73 K/mm3 (150-400); RDW Coefficient Variation 18.7 % (11.7-14.2); RDW Standard Deviation 69.6 fL (35.1-46.3); Red Blood Cell Count 2.93 M/mm3 (4.30-5.90); White Blood Cell Count 7.19 K/mm3 (4.00-11.30)
[2020-09-24 16:31] LABS: Alanine Aminotransfer (ALT/SGP 168 U/L (12-78); Albumin, Blood 1.7 g/dL (3.4-5.0); Albumin/Globulin Ratio 0.3 (0.8-1.8); Alk Phos 356 U/L (50-136); Anion Gap 7 mmol/L (6-16); Aspartate Aminotrans (AST/SGOT 393 U/L (12-37); Bilirubin, Total 1.8 mg/dL (0.1-1.0); Blood Urea Nitrogen 15 mg/dL (8-24); Bun/Creatinine Ratio 16.4 (12.0-20.0); CO2, Blood 26 mmol/L (21-32); Calcium, Blood 7.3 mg/dL (8.5-10.1); Chloride, Blood 101 mmol/L (98-108); Creatinine, Blood 0.91 mg/dL (0.60-1.20); Globulin, Blood 5.5 g/dL (2.2-4.0); Glomerular Filtration Rate >60 (60-); Glucose, Blood 126 mg/dL (70-99); International Normalized Ratio 1.42; Sodium, Blood 134 mmol/L (136-145); Total Protein, Blood 7.2 g/dL (6.4-8.2)
[2020-09-24 20:40] LABS: Calcium, Ionized (POC) 1.08 mmol/L (1.10-1.46); Chloride (POC) 95 mmol/L (98-108); Glucose (ISTAT POC) 112 mg/dL (70-99); Hemoglobin (POC) 11.6 g/dL (13.5-17.5); Potassium (POC) 3.5 mmol/L (3.5-5.5); Sodium (POC) 139 mmol/L (135-148); Total CO2 (POC) 32 mmol/L (21-32)
[2020-09-24] MEDS ORDERED: CLON1 PO (23:20)
--- NOTE | 2020-09-24 23:37 | NUR ---
ADMISSION: PATIENT IS RECIEVED FROM ER VIA STRETCHER. TRANSFERED WITH ASSIST OF 4. PULSE IS TACHYCARDIC. PATIENT IS ORIENTED TO ROOM AND CALL PERES. HAS NOT TAKEN HS MEDS YET. WILL NOTIFY
--- NOTE | 2020-09-25 | NUR ---
CRITICAL LAB: LACTIC ACID IS 2.3. NO NEW ORDERS AT THIS TIME.
[2020-09-25 05:51] LABS: BASOPHILS ABSOLUTE AUTO 0.06 K/mm3 (0.00-0.23); BASOPHILS PERCENT AUTO 1 % (0-2); EOSINOPHILS ABSOLUTE AUTO 0.23 K/mm3 (0.00-0.68); EOSINOPHILS PERCENT AUTO 3 % (0-6); Hematocrit 25.6 % (37.0-53.0); Hemoglobin 8.6 g/dL (13.5-17.5); IMMATURE GRAN ABSOLUTE AUTO 0.03 K/mm3 (0.00-0.10); IMMATURE GRAN PERCENT AUTO 0 % (0-1); LYMPHOCYTES ABSOLUTE AUTO 2.42 K/mm3 (0.84-5.20); LYMPHOCYTES PERCENT AUTO 27 % (21-46); MONOCYTES PERCENT AUTO 12 % (4-13); Mean Corpuscular HGB 33.2 pg (26.0-34.0); Mean Corpuscular HGB Conc 33.6 g/dL (31.5-36.5); Mean Corpuscular Volume 99 fL (80-100); NEUTROPHILS ABSOLUTE AUTO 5.04 K/mm3 (1.96-9.15); NEUTROPHILS PERCENT AUTO 57 % (41-73); Platelet Count 76 K/mm3 (150-400); RDW Coefficient Variation 18.6 % (11.7-14.2); RDW Standard Deviation 66.9 fL (35.1-46.3); Red Blood Cell Count 2.59 M/mm3 (4.30-5.90); White Blood Cell Count 8.88 K/mm3 (4.00-11.30)
[2020-09-25 06:05] LABS: Alanine Aminotransfer (ALT/SGP 141 U/L (12-78); Albumin, Blood 1.6 g/dL (3.4-5.0); Albumin/Globulin Ratio 0.3 (0.8-1.8); Alk Phos 284 U/L (50-136); Anion Gap 2 mmol/L (6-16); Aspartate Aminotrans (AST/SGOT 360 U/L (12-37); Bilirubin, Total 1.8 mg/dL (0.1-1.0); Blood Urea Nitrogen 16 mg/dL (8-24); Bun/Creatinine Ratio 16.9 (12.0-20.0); CO2, Blood 31 mmol/L (21-32); Calcium, Blood 7.2 mg/dL (8.5-10.1); Chloride, Blood 104 mmol/L (98-108); Creatinine, Blood 0.94 mg/dL (0.60-1.20); Globulin, Blood 4.6 g/dL (2.2-4.0); Glomerular Filtration Rate >60 (60-); Glucose, Blood 102 mg/dL (70-99); Potassium, Blood 3.2 mmol/L (3.5-5.5); Sodium, Blood 137 mmol/L (136-145); Total Protein, Blood 6.2 g/dL (6.4-8.2)
--- NOTE | 2020-09-25 06:20 | NUR ---
SHIFT SUMMARY: PATIENT KEEPS REMEMBERING MEDICATIONS HE TAKES DAILY, AFTER MED REC WAS COMPLETED. REPORTS TAKING LASIX OR SOME DIARETIC AND DOES NOT KNOW THE DOSE. THIS IS NOT ON MED REC. HE ALSO REPORTS KLONOPIN 1MG TID, WHICH IS ON HIS DC'D MEDICATIONS ON MED REC. PLEASE VERIFY MED LIST WITH PHARMACY. VSS, NS INFUSING PER MAR. CONCENT WAS OBTAINED AND PHOTO'S WERE TAKEN OF BILAT LE WOUNDS. PATIENT WAS ABLE TO VOID 400ML OF A DARK SAIRA URINE.
[2020-09-25 10:10] LABS: Automated BF WBC Count 0.175 K/mm3 (0-999); Body Fluid WBC Count 175 /mm3 (0-999)
[2020-09-25 10:56] LABS: RBC Count, Body Fluid 807 /mm3 (0-0)
[2020-09-25 10:58] LABS: Appearance, Body Fluid Hazy (Clear); Color, Body Fluid L Yellow (None-Yellow); Total Cell Count, Body Fluid 100
[2020-09-25 11:02] LABS: Albumin, Body Fluid 0.1 g/dL
[2020-09-25 11:05] LABS: Glucose, Body Fluid 123 mg/dL
[2020-09-25 11:06] LABS: Protein, Body Fluid 0.5 g/dL
[2020-09-25 12:06] LABS: pH, Body Fluid 5.3
[2020-09-25] MEDS ORDERED: BUPRENO-NALOX1 EAC2 SL (14:09)
[2020-09-25] MEDS ORDERED: HYDCHL25 PO (14:16)
[2020-09-25] MEDS ORDERED: ENTECAVIR1 MG PO (16:31)
--- NOTE | 2020-09-25 17:22 | NUR ---
SHIFT SUMMARY TO IMAGING THIS MORNING WITH PARACENTESIS COMPLETED WITH APPROX 1 LITER OF FLUIDS REMOVED. TOLERATED PROCEDURE WITH A SMALL AMOUNT OF BLOOD NOTED ON BANDAID THIS AFTERNOON. ELEVATED SCROTUM IN A PILLOW CASE SLING. SKIN OPEN TO AIR DUE TO LOOKING SCALDED FROM POSSIBLE INCONTINENCE AND RUBBING FROM CLOTHING. LE'S ELEVATED ON PILLOWS FOR SWELLING. SLEEPING WHEN LEFT ALONE. MEDS CLARIFIED WITH PHARMACY FAX.
--- NOTE | 2020-09-25 22:01 | NUR ---
ASSUMPTION OF CARE. AOX3 BUT HAS FREQUENT FORGETFULNESS OR OFF THE WALL SAYINGS. LIKE HE ASKED "DO I NEED TO TAKE IT ON THE STREET." THEN HE CORRECTED HIMSELF AND SAID WHEN I GET OUT DO I NEEDS TO TAKE IT. HE KNOWS HE IS NOT REMEMBERING WELL AND DOES TRY TO CORRECT IT. LUNG SOUNDS ARE CLEAR. HR NORMAL. ABDOMIN SEVERE DISTENTION, FIRM, BT HYPOACTIVE. DENIES PAIN. RASH TO SKIN FOLDS AND GROIN, APPLIED NYSTATIN CREAM AND PILLOW TO SLING TESTICLES. AREA IS ALSO SWOLLEN. BLE HAVE HARDENED BLISTERS AND SOME THAT ARE OPEN AND WEEPING. PRESSURE ULCER TO LEFT HEEL, DRESSING APPLIED. IVF STILL INFUSING. MEDS GIVEN. DENIES ANY OTHER NEEDS. CALL LIGHT IS IN REACH.
--- NOTE | 2020-09-26 05:46 | NUR ---
SHIFT SUMMARY: AOX3, FORGETFUL, AWARE OF FORGETFULNESS AND TRYS TO CORRECT SELF FREQUENTLY. MILD PAIN ONLY WHEN TOUCHING BOTTOM OF LEFT FOOT. STAGE 2 PRESSURE ULCER TO LEFT HEEL, SHALLOW, MINIMAL DRAINAGE. COVERED WITH FOAM. BLE EDEMA FROM TOES TO ABDOMIN. BILATERAL LOWER LEGS HAVE HARDED EDEMA TISSUE ALL OVER WITH SOME BLISTERS AND WEEPING, AND DRY SKIN. GROIN SWELLING LARGE, TENDER, FUNGAL RASH ACROSS SCROTUM, CREASES, AND UP TO PANUS FOLD. NYSTATIN USED AND SLINGED TESTICLES. ABDOMIN MODERATE DISTENTION FROM HIS NORM, BT HYPOACTIVE, NO N/V/D. NO BM SINCE ADMISSION. GAVE LACTOLOSE LAST NIGHT. FINISHED IVF. ABLE TO TURN SELF IN BED. URINE OUTPUT SAIRA COLOR ONLY 600 THIS SHIFT. VS WNL, AFEBRILE. NO OTHER CHANGES TO REPORT. CALL LIGHT IS IN REACH.
[2020-09-26 05:57] LABS: Alanine Aminotransfer (ALT/SGP 131 U/L (12-78); Albumin, Blood 1.4 g/dL (3.4-5.0); Albumin/Globulin Ratio 0.3 (0.8-1.8); Alk Phos 271 U/L (50-136); Anion Gap 3 mmol/L (6-16); Aspartate Aminotrans (AST/SGOT 347 U/L (12-37); Bilirubin, Indirect 0.5 mg/dL (0.1-0.7); Bilirubin, Total 1.5 mg/dL (0.1-1.0); Blood Urea Nitrogen 13 mg/dL (8-24); Bun/Creatinine Ratio 13.7 (12.0-20.0); CO2, Blood 30 mmol/L (21-32); Calcium, Blood 6.9 mg/dL (8.5-10.1); Chloride, Blood 106 mmol/L (98-108); Creatinine, Blood 0.95 mg/dL (0.60-1.20); Globulin, Blood 4.4 g/dL (2.2-4.0); Glomerular Filtration Rate >60 (60-); Glucose, Blood 103 mg/dL (70-99); Magnesium, Blood 1.8 mg/dL (1.6-2.4); Sodium, Blood 139 mmol/L (136-145); Total Protein, Blood 5.8 g/dL (6.4-8.2)
[2020-09-26] MEDS ORDERED: FURO40 PO (15:11)
[2020-09-26] MEDS ORDERED: NYSTATIN15 GM TOP (15:11)
[2020-09-26] MEDS ORDERED: ALDACTONE100 MG PO (15:12)
--- NOTE | 2020-09-26 17:30 | NUR ---
DISCHARGE INSTRUCTIONS COMPLETED AND DISCUSSED WITH PT EXPRESSING UNDERSTANDING. SCRIPTS FAXED TO [facility]. PT RECEIVED PHONE CALL JUST PRIOR TO LEAVING FROM [facility] OPERATIONS MANAGER. NOW GOING TO BE STAYING AT [facility]. PT REPORTED HE HOPED TO BE ABLE TO GET HIS LEGS ELEVATED ON A BED TO REDUCE SWELLING. TO [facility] VIA W/C WITH [facility]C [facility].
== END 2020-09-26 17:03 | disposition home or self-care (01) | DRG 433 ==
LOC: ER 15:23 → MEDS 22:06
PROVIDERS: Internal Medicine; Physician Assistant; ADMIT Internal Medicine
PROC: 0W9G3ZZ Drainage of Peritoneal Cavity, Percutaneous Approach (ICD-10-PCS; principal; 2020-09-25)
DX: K74.60 Unspecified cirrhosis of liver (principal); R18.8 Other ascites; B19.10 Unspecified viral hepatitis B without hepatic coma; E87.2 Acidosis; F11.20 Opioid dependence, uncomplicated; B37.89 Other sites of candidiasis; E86.0 Dehydration; E87.6 Hypokalemia; I10 Essential (primary) hypertension; F90.9 Attention-deficit hyperactivity disorder, unspecified type; F20.9 Schizophrenia, unspecified; F32.9 Major depressive disorder, single episode, unspecified; G89.4 Chronic pain syndrome; F17.210 Nicotine dependence, cigarettes, uncomplicated; M54.9 Dorsalgia, unspecified; G47.00 Insomnia, unspecified; K72.90 Hepatic failure, unspecified without coma; E88.09 Other disorders of plasma-protein metabolism, not elsewhere classified; S81.802A Unspecified open wound, left lower leg, initial encounter; S81.801A Unspecified open wound, right lower leg, initial encounter; X58.XXXA Exposure to other specified factors, initial encounter; M54.30 Sciatica, unspecified side; Z91.041 Radiographic dye allergy status; Z86.73 Personal history of transient ischemic attack (TIA), and cerebral infarction without residual deficits; Z87.442 Personal history of urinary calculi; Z88.6 Allergy status to analgesic agent; Z86.718 Personal history of other venous thrombosis and embolism; Z59.0 Homelessness; Z98.890 Other specified postprocedural states; Z86.19 Personal history of other infectious and parasitic diseases
CPT/HCPCS: 49083; 76700; 80047; 80053; 82042; 82140; 82248; 82945; 83605; 83690; 83735; 83986; 84100; 84157; 84484; 85014; 85025; 85610; 85730; 88108; 89051; 93005; 93010; 96365; 96366; 97162; 97166; 97530; 97535; 99285-25; A9270; J0572; J1650; J3480; J7030; P9046

== ENCOUNTER 2020-10-08 00:11 | Day surgery (SDC) | payer OTHER ==
[~2020-10-08 00:11] MED LIST changes: +ALDACTONE100 MG PO; +ENTECAVIR1 MG PO; +FURO40 PO; +HYDCHL25 PO; +NYSTATIN15 GM TOP; +OLANZAPINE PO; -OLANZAPINE15 M1 PO
== END 2020-10-08 23:45 | disposition home or self-care (01) ==
LOC: WOUND 00:11
DX: L89.623 Pressure ulcer of left heel, stage 3 (principal); I89.0 Lymphedema, not elsewhere classified; I87.2 Venous insufficiency (chronic) (peripheral); I73.9 Peripheral vascular disease, unspecified; K74.60 Unspecified cirrhosis of liver; B19.10 Unspecified viral hepatitis B without hepatic coma; D50.9 Iron deficiency anemia, unspecified; R77.0 Abnormality of albumin
CPT/HCPCS: A9270; G0463

== ENCOUNTER 2020-10-15 03:24 | Day surgery (SDC) | payer OTHER | END 2020-10-15 23:08 | disposition home or self-care (01) | LOC: WOUND 03:24 | DX: L89.623 Pressure ulcer of left heel, stage 3 (principal); I89.0 Lymphedema, not elsewhere classified; I87.2 Venous insufficiency (chronic) (peripheral); I73.9 Peripheral vascular disease, unspecified; K74.60 Unspecified cirrhosis of liver; B19.10 Unspecified viral hepatitis B without hepatic coma; D50.9 Iron deficiency anemia, unspecified; R77.0 Abnormality of albumin | CPT/HCPCS: A9270; G0463 ==

== ENCOUNTER → 2020-10-31 | Outpatient (CLI) | payer OTHER ==
[~2020-10-31] MED LIST changes: +AMOCLA875 PO; +AZIT250 PO; +BANATROL PLUS1 EAC1 PO
== END | disposition home or self-care (01) ==
LOC: LAB SHORT 08:51 → LAB EV 08:51
DX: L97.429 Non-pressure chronic ulcer of left heel and midfoot with unspecified severity (principal)
CPT/HCPCS: 87070; 87205

== ENCOUNTER 2020-11-01 04:39 | Day surgery (SDC) | payer OTHER ==
[~2020-11-01 04:39] MED LIST changes: -AMOCLA875 PO; -AZIT250 PO; -BANATROL PLUS1 EAC1 PO
== END 2020-11-01 23:11 | disposition home or self-care (01) ==
LOC: WOUND 04:39
DX: L89.892 Pressure ulcer of other site, stage 2 (principal); I87.2 Venous insufficiency (chronic) (peripheral); I73.9 Peripheral vascular disease, unspecified; K74.60 Unspecified cirrhosis of liver; B19.10 Unspecified viral hepatitis B without hepatic coma; D50.9 Iron deficiency anemia, unspecified; R77.0 Abnormality of albumin; I89.0 Lymphedema, not elsewhere classified; Z88.6 Allergy status to analgesic agent; Z91.041 Radiographic dye allergy status
CPT/HCPCS: A9270; G0463

== ENCOUNTER 2020-11-03 11:11 | Inpatient (IN) | payer OTHER ==
[~2020-11-03] VITALS: Ht 180.3 cm; Wt 127.5 kg
[2020-11-03 12:19] LABS: BASOPHILS ABSOLUTE AUTO 0.05 K/mm3 (0.00-0.23); BASOPHILS PERCENT AUTO 0 % (0-2); EOSINOPHILS ABSOLUTE AUTO 0.01 K/mm3 (0.00-0.68); EOSINOPHILS PERCENT AUTO 0 % (0-6); Hematocrit 29.9 % (37.0-53.0); Hemoglobin 9.7 g/dL (13.5-17.5); IMMATURE GRAN ABSOLUTE AUTO 0.19 K/mm3 (0.00-0.10); IMMATURE GRAN PERCENT AUTO 1 % (0-1); LYMPHOCYTES ABSOLUTE AUTO 2.46 K/mm3 (0.84-5.20); LYMPHOCYTES PERCENT AUTO 12 % (21-46); MONOCYTES PERCENT AUTO 10 % (4-13); Mean Corpuscular HGB 31.2 pg (26.0-34.0); Mean Corpuscular HGB Conc 32.4 g/dL (31.5-36.5); Mean Corpuscular Volume 96 fL (80-100); NEUTROPHILS ABSOLUTE AUTO 16.08 K/mm3 (1.96-9.15); NEUTROPHILS PERCENT AUTO 77 % (41-73); NRBC ABSOLUTE 0.02 K/mm3 (0.00-0.02); NRBC Auto 0.1 /100 WBC (0.0-0.2); Platelet Count 109 K/mm3 (150-400); RDW Coefficient Variation 22.5 % (11.7-14.2); RDW Standard Deviation 78.5 fL (35.1-46.3); Red Blood Cell Count 3.11 M/mm3 (4.30-5.90); White Blood Cell Count 20.89 K/mm3 (4.00-11.30)
[2020-11-03 12:48] LABS: Albumin/Globulin Ratio 0.4 (0.8-1.8); Bilirubin, Total 2.1 mg/dL (0.1-1.0); Bun/Creatinine Ratio 12.2 (12.0-20.0); Calcium, Blood 9.4 mg/dL (8.5-10.1); Creatinine, Blood 2.05 mg/dL (0.60-1.20); Globulin, Blood 5.6 g/dL (2.2-4.0); Potassium, Blood 6.3 mmol/L (3.5-5.5); Total Protein, Blood 7.6 g/dL (6.4-8.2)
[2020-11-03 14:53] LABS: International Normalized Ratio 1.64; Prothrombin Time Results 17.2 Sec (9.7-11.5)
--- NOTE | 2020-11-03 19:08 | NUR ---
SHIFT SUMMARY: PT IS NEW ADMIT FROM ER THIS AFTERNOON. PT ARRIVES TO UNIT LETHARGIC, AROUSES TO HIS NAME AND TOUCH BUT QUICKLY FALLS TO SLEEP, PT SLEEPS THROUGH LAB DRAW ATTEMPTS AND POWERGLIDE PLACEMENT. PT SATS >95% ON RA, SINUS TACH ON MONITOR. PT ARRIVES TO UNIT WITH MULTIPLE ABRASIONS/SCRATCHES ON FACE, BUE, BLE AND COCCYX. WOUNDS CLEANED AND DRESSED. PT INCONTINENT OF URINE, PERICARE AND LINEN CHANGE PROVIDED NEEDED, PT CURRENTLY WITH ATTENS IN PLACE. REPEAT LABS SHOW K+ TRENDING DOWN. DR GOLDBERG NOTIFIED OF US RESULTS AND LAB RESULTS, PARACENTESIS DC'D PER DR GOLDBERG. REPORT GIVEN TO SALVADOR ADAMS TO ASSUME CARE OF PT.
[2020-11-04 04:14] LABS: Hematocrit 28.5 % (37.0-53.0); Hemoglobin 9.7 g/dL (13.5-17.5); Mean Corpuscular HGB 30.6 pg (26.0-34.0); Platelet Count 96 K/mm3 (150-400); RDW Coefficient Variation 22.1 % (11.7-14.2); RDW Standard Deviation 72.6 fL (35.1-46.3); Red Blood Cell Count 3.17 M/mm3 (4.30-5.90); White Blood Cell Count 20.59 K/mm3 (4.00-11.30)
[2020-11-04 04:19] LABS: Mean Corpuscular Volume 90 fL (80-100); Mean Platelet Volume 11.2 fL (9.1-12.4)
[2020-11-04 04:32] LABS: Albumin/Globulin Ratio 0.4 (0.8-1.8); Bilirubin, Total 1.7 mg/dL (0.1-1.0); Bun/Creatinine Ratio 18.9 (12.0-20.0); Calcium, Blood 8.4 mg/dL (8.5-10.1); Creatinine, Blood 1.59 mg/dL (0.60-1.20); Globulin, Blood 5.7 g/dL (2.2-4.0); Potassium, Blood 4.2 mmol/L (3.5-5.5); Total Protein, Blood 7.7 g/dL (6.4-8.2)
--- NOTE | 2020-11-04 05:04 | NUR ---
SHIFT SUMMARY* PATIENT FOUND TO BE MORE ALERT WITH ABRUPT AWAKENING REQUESTING DINNER AT START OF SHIFT. ACTED IF IT EVERYTHING WAS NORMAL AND STATED THAT HE IS OFTEN FORGETFUL WITH HIS "CONDITION". A&OX4, BAUTISTA, AND FOLLOWING COMMANDS UPON ASSESSMENT. NOT COMPLIANT WITH REQUESTS TO CALL RN BEFORE GETTING UP AND GETTING AGITATED. A LITTLE UNSTEADY WITH CHRONIC BACK PAIN SO WALKER AND STAND BY ASSIST TO BATHROOM. FREQUENTLY REEDUCATED TO CALL RN BEFORE AMBULATING. DOES NOT KNOW LIMITS AND IS OFTEN NON COMPLIANT WITH REQUESTS TO TAKE HIS TIME. NO PAIN OR DISTRESS NOTED UPON ASSESSMENT.NIGHT INFORMATION OFFICER DID NOT FEEL COMFORTABLE RESTARTING HIS MANY HOME MEDS EVEN WITH CHANGE IN MENTATION. DID GET DIET ORDER FOR DINNER AT LEAST AND THEN MADE NPO AFTER 0000 IN CASE THEY STILL PLANNED ON INTERVENTIONS TODAY. VSS. SINUS TACH IN LOW 100'S. ON RA. MANY SKIN ISSUES NOTED AND PATIENT KEPT REMOVING BANDAGES. SEE CHART FOR MORE ON SKIN ISSUES. ONE BM AT START OF SHIFT. VOIDING WELL PER URINAL. NO ACUTE CONCERNS AT THIS TIME. WILL CONTINUE TO MONITOR UNTIL REPORT GIVEN TO DAYSHIFT RN.
--- NOTE | 2020-11-04 11:05 | NUR ---
UPDATE: PT CONTINUES TO BE AGITATED THIS MORNING, TALKING OVER STAFF, NOT SLOWING DOWN AND LISTENING TO STAFF WHEN STAFF ATTEMPTING TO REDIRECT/EDUCATE PT. PT IS ALERT, IMPULSIVE, NOT USING CALL BUTTON PRIOR TO EXITING BED EVEN WHEN REDIRECTED TO DO SO. BED ALARM CONTINUES IN PLACE FOR SAFETY. PER REPORT, PT REMOVED HIS DRESSINGS THAT WERE APPLIED UPON ARRIVAL TO UNIT. DR HERNANDEZ TO ROOM FOR EVAL. PT FINISHES BREAKFAST WITH HEALTHY APPETITE. WILL CONTINUE TO MONITOR AND TREAT ACCORDINGLY.
[2020-11-04 13:20] LABS: BASOPHILS ABSOLUTE AUTO 0.02 K/mm3 (0.00-0.23); BASOPHILS PERCENT AUTO 0 % (0-2); EOSINOPHILS ABSOLUTE AUTO 0.01 K/mm3 (0.00-0.68); EOSINOPHILS PERCENT AUTO 0 % (0-6); Hematocrit 27.5 % (37.0-53.0); Hemoglobin 9.4 g/dL (13.5-17.5); IMMATURE GRAN ABSOLUTE AUTO 0.08 K/mm3 (0.00-0.10); IMMATURE GRAN PERCENT AUTO 0 % (0-1); LYMPHOCYTES ABSOLUTE AUTO 2.33 K/mm3 (0.84-5.20); LYMPHOCYTES PERCENT AUTO 13 % (21-46); MONOCYTES ABSOLUTE AUTO 2.19 K/mm3 (0.16-1.47); MONOCYTES PERCENT AUTO 12 % (4-13); Mean Corpuscular HGB 31.1 pg (26.0-34.0); Mean Corpuscular HGB Conc 34.2 g/dL (31.5-36.5); Mean Corpuscular Volume 91 fL (80-100); NEUTROPHILS ABSOLUTE AUTO 13.68 K/mm3 (1.96-9.15); NEUTROPHILS PERCENT AUTO 75 % (41-73); Platelet Count 98 K/mm3 (150-400); RDW Coefficient Variation 22.6 % (11.7-14.2); RDW Standard Deviation 74.4 fL (35.1-46.3); Red Blood Cell Count 3.02 M/mm3 (4.30-5.90); White Blood Cell Count 18.31 K/mm3 (4.00-11.30)
--- NOTE | 2020-11-04 17:30 | NUR ---
TRANSFER NOTE: PATIENT WAS INFORMED OF TRANSFER, AND WAS SLEEPY, PACKED ALL HOME MEDS, AND BELONGINGS, AND DINNER TRAY AND TRANSFERRED TO MED FLOOR 350 AND RN FLAVIO BOSS, REPORT GIVEN GIVEN TO More BOSS RN AT 1715, HE HAD NO FURTHER QUESTIOSN OR CONCERNS. PATIENT WAS ASLEEP DURING TRANSFER, PATIENT HAD JUST REFUSED MEDS PREVIOUSLY TO TRANSFER, OF BOTH AZITHROMYCIN AND LACTULOSE. WAS ASSISTED BY U DIRECTOR OF HEMOPHILIA.
--- NOTE | 2020-11-04 17:41 | NUR ---
PT TRANSFERED FROM PCU TO SCU. PT SLEEPING.
[2020-11-05 05:21] LABS: BASOPHILS ABSOLUTE AUTO 0.03 K/mm3 (0.00-0.23); BASOPHILS PERCENT AUTO 0 % (0-2); EOSINOPHILS ABSOLUTE AUTO 0.03 K/mm3 (0.00-0.68); EOSINOPHILS PERCENT AUTO 0 % (0-6); Hematocrit 24.9 % (37.0-53.0); Hemoglobin 8.6 g/dL (13.5-17.5); IMMATURE GRAN ABSOLUTE AUTO 0.04 K/mm3 (0.00-0.10); IMMATURE GRAN PERCENT AUTO 0 % (0-1); LYMPHOCYTES ABSOLUTE AUTO 2.54 K/mm3 (0.84-5.20); LYMPHOCYTES PERCENT AUTO 20 % (21-46); MONOCYTES ABSOLUTE AUTO 1.54 K/mm3 (0.16-1.47); MONOCYTES PERCENT AUTO 12 % (4-13); Mean Corpuscular HGB 30.7 pg (26.0-34.0); Mean Corpuscular HGB Conc 34.5 g/dL (31.5-36.5); Mean Corpuscular Volume 89 fL (80-100); NEUTROPHILS ABSOLUTE AUTO 8.43 K/mm3 (1.96-9.15); NEUTROPHILS PERCENT AUTO 67 % (41-73); Platelet Count 85 K/mm3 (150-400); RDW Coefficient Variation 23.2 % (11.7-14.2); White Blood Cell Count 12.61 K/mm3 (4.00-11.30)
[2020-11-05 05:23] LABS: Mean Platelet Volume 10.9 fL (9.1-12.4)
[2020-11-05 05:33] LABS: International Normalized Ratio 1.9; Prothrombin Time Results 19.8 Sec (9.7-11.5)
[2020-11-05 05:47] LABS: Albumin/Globulin Ratio 0.4 (0.8-1.8); Bilirubin, Total 1.6 mg/dL (0.1-1.0); Bun/Creatinine Ratio 26.3 (12.0-20.0); Calcium, Blood 7.9 mg/dL (8.5-10.1); Creatinine, Blood 1.33 mg/dL (0.60-1.20); Potassium, Blood 4.7 mmol/L (3.5-5.5)
--- NOTE | 2020-11-05 05:59 | NUR ---
BAG SORTER SUMMARY PT A/O X3 WITH FORGETFULNESS. PT SLEPT WELL TONIGHT. PT HAS BEEN UNPLEASANT AND RUDE TO STAFF. PT ALSO ANNOYED AND ARGUMENTATIVE WITH CARE. PT HAS SLIGHT PARANOIA AND THINKS PEOPLE ARE TALKING ABOUT HIM. PT HAD ONE BM OVERNIGHT- IT WAS FIRM PER WELL TESTING OPERATOR. AMBULATED WITH 1 ASSIST WITH FWW. CALL LIGHT WITHIN REACH, BED ALARM ON.
--- NOTE | 2020-11-05 17:47 | NUR ---
PT HAD NO ACUTE CHANGES THIS SHIFT. HE WAS COOPERATIVE WITH THIS NURSE AND TOOK MEDICATIONS PRESCRIBED. PT IS STILL PARANOID AT TIMES BUT WAS MOSTLY PLEASANT . HE CONTINUES WITH THE LACTOLOSE. CALL LIGHT WITHIN REACH. NO COMLAINTS OF PAIN, SOB, OR NV.
--- NOTE | 2020-11-06 05:14 | NUR ---
SHIFT SUMMARY AOX2-SELF & PLACE. COULDNT STATE DATE & SITUATION. CONFUSED @TIMES. ANXIOUS & IRRITABLE @BEGINNING OF SHIFT. MORE ALERT, PLEASENT& COOPERATIVE THIS AM. RECIEVING LACTALOSE FOR ENCEPHALOPATHY. REPORTS 8 CHRONIC BACK PAIN, MEDICATED PER EMAR ORDERS. TECHNICAL STENOGRAPHER FOUND PTS HOME SUBOXONE MEDS IN TRAVEL BAG LAST NIGHT, WALKED TO PHARMACY TO BE LOCKED, MED SLIP ON CHART. VSS. DENIES N/V. ABD FIRM, HYPERACTIVE, HAD 1 SM BM THIS SHIFT. 1 ASSIST c FWW. CALL LIGHT IN REACH, BED ALARM IN PLACE. WCTM.
[2020-11-06 06:17] LABS: BASOPHILS ABSOLUTE AUTO 0.04 K/mm3 (0.00-0.23); BASOPHILS PERCENT AUTO 1 % (0-2); EOSINOPHILS ABSOLUTE AUTO 0.15 K/mm3 (0.00-0.68); EOSINOPHILS PERCENT AUTO 2 % (0-6); Hematocrit 25.7 % (37.0-53.0); Hemoglobin 8.7 g/dL (13.5-17.5); IMMATURE GRAN ABSOLUTE AUTO 0.04 K/mm3 (0.00-0.10); IMMATURE GRAN PERCENT AUTO 1 % (0-1); LYMPHOCYTES ABSOLUTE AUTO 2.53 K/mm3 (0.84-5.20); LYMPHOCYTES PERCENT AUTO 30 % (21-46); MONOCYTES PERCENT AUTO 12 % (4-13); Mean Corpuscular HGB 30.6 pg (26.0-34.0); Mean Corpuscular HGB Conc 33.9 g/dL (31.5-36.5); Mean Corpuscular Volume 91 fL (80-100); Mean Platelet Volume 10.8 fL (9.1-12.4); NEUTROPHILS ABSOLUTE AUTO 4.62 K/mm3 (1.96-9.15); NEUTROPHILS PERCENT AUTO 55 % (41-73); Platelet Count 71 K/mm3 (150-400); RDW Coefficient Variation 23.8 % (11.7-14.2); RDW Standard Deviation 78.4 fL (35.1-46.3); Red Blood Cell Count 2.84 M/mm3 (4.30-5.90); White Blood Cell Count 8.38 K/mm3 (4.00-11.30)
[2020-11-06 06:37] LABS: Alanine Aminotransfer (ALT/SGP 141 U/L (12-78); Albumin, Blood 1.9 g/dL (3.4-5.0); Albumin/Globulin Ratio 0.4 (0.8-1.8); Alk Phos 223 U/L (50-136); Anion Gap 2 mmol/L (6-16); Aspartate Aminotrans (AST/SGOT 447 U/L (12-37); Bilirubin, Total 1.9 mg/dL (0.1-1.0); Blood Urea Nitrogen 26 mg/dL (8-24); Bun/Creatinine Ratio 23.9 (12.0-20.0); CO2, Blood 31 mmol/L (21-32); Calcium, Blood 7.7 mg/dL (8.5-10.1); Chloride, Blood 100 mmol/L (98-108); Creatinine, Blood 1.09 mg/dL (0.60-1.20); Globulin, Blood 4.9 g/dL (2.2-4.0); Glomerular Filtration Rate >60 (60-); Glucose, Blood 118 mg/dL (70-99); Potassium, Blood 3.9 mmol/L (3.5-5.5); Sodium, Blood 133 mmol/L (136-145); Total Protein, Blood 6.8 g/dL (6.4-8.2)
[2020-11-06] MEDS ORDERED: AZIT250 PO (13:01)
[2020-11-06] MEDS ORDERED: FURO40 PO (13:02)
[2020-11-06] MEDS ORDERED: AMOCLA875 PO (13:03)
[2020-11-06] MEDS ORDERED: BANATROL PLUS1 EAC1 PO (13:04)
--- NOTE | 2020-11-06 13:46 | NUR ---
PATIENT BEING PREPARED FOR DISCHARGE. DISCAHRGE INSTRUCTIONS GIVEN TO PATIENT AND ALL QUESTIONS ANSWERED. F/U APPOINTMENT SCHEDULED WITH PCP FOR THIS UPCOMING WEDNESDAY. NEW PRESCRIPTION MEDICATIONS FAXED INTO [facility] PER PATIENT REQUEST. MEDICATIONS BROUGHT INTO HOSPITAL BY PATIENT RETURNED TO PATIENT. AWAITING FWW AND RIDE FOR PATIENT TO D/C.
--- NOTE | 2020-11-06 15:53 | NUR ---
PATIENT DISCHARGING AT 1553. EVENTS AND PROMOTIONS ASSISTANT ESCORTED PATIENT TO THE [facility] IN W/C. WHEEL CHAIR WAS DELIVERED TO THE PATIENT AND TAKEN WITH THE PATIENT AT DISCHARGE.
== END 2020-11-06 15:54 | disposition home or self-care (01) | DRG 871 ==
LOC: ER 11:11 → PCU 13:50 → MEDS 13:50 → PCU 14:27 → MEDS 11-04 17:30
PROVIDERS: Emergency Medicine; Internal Medicine; ADMIT Internal Medicine
DX: A41.9 Sepsis, unspecified organism (principal); K72.00 Acute and subacute hepatic failure without coma; J18.9 Pneumonia, unspecified organism; N17.9 Acute kidney failure, unspecified; R18.8 Other ascites; B18.1 Chronic viral hepatitis B without delta-agent; F11.20 Opioid dependence, uncomplicated; N18.30 Chronic kidney disease, stage 3 unspecified; K74.60 Unspecified cirrhosis of liver; B19.20 Unspecified viral hepatitis C without hepatic coma; G89.4 Chronic pain syndrome; Z86.73 Personal history of transient ischemic attack (TIA), and cerebral infarction without residual deficits; Z87.442 Personal history of urinary calculi; Z86.718 Personal history of other venous thrombosis and embolism; F32.9 Major depressive disorder, single episode, unspecified; M54.40 Lumbago with sciatica, unspecified side; Z98.890 Other specified postprocedural states; F90.9 Attention-deficit hyperactivity disorder, unspecified type; F17.200 Nicotine dependence, unspecified, uncomplicated; Z88.6 Allergy status to analgesic agent; Z91.041 Radiographic dye allergy status; Z79.899 Other long term (current) drug therapy; E87.5 Hyperkalemia; S81.812A Laceration without foreign body, left lower leg, initial encounter; S81.811A Laceration without foreign body, right lower leg, initial encounter; W18.2XXA Fall in (into) shower or empty bathtub, initial encounter
CPT/HCPCS: 70450; 72125; 76705; 80053; 82140; 82947; 83615; 83690; 84132; 85025; 85027; 85610; 85730; 87070; 87205; 93005; 93010; 96374; 96375; 99285-25; A9270; C1751; J0572; J0696; J1815; J1940; J7050; P9046

== ENCOUNTER 2020-11-07 17:50 | Emergency (ER) | payer OTHER ==
[~2020-11-07] VITALS: Ht 180.3 cm; Wt 108.9 kg
[~2020-11-07 17:50] MED LIST changes: +AMOCLA875 PO; +AZIT250 PO; +BANATROL PLUS1 EAC1 PO
== END 2020-11-07 19:06 | disposition home or self-care (01) ==
LOC: ER 17:50
DX: S40.812D Abrasion of left upper arm, subsequent encounter (principal); S40.811D Abrasion of right upper arm, subsequent encounter; S80.812D Abrasion, left lower leg, subsequent encounter; S80.811D Abrasion, right lower leg, subsequent encounter; F17.200 Nicotine dependence, unspecified, uncomplicated; Z91.041 Radiographic dye allergy status; Z88.6 Allergy status to analgesic agent; Z79.899 Other long term (current) drug therapy; Z86.73 Personal history of transient ischemic attack (TIA), and cerebral infarction without residual deficits; W19.XXXD Unspecified fall, subsequent encounter
CPT/HCPCS: 99282

== ENCOUNTER 2020-11-14 04:13 | Day surgery (SDC) | payer OTHER | END 2020-11-14 23:21 | disposition home or self-care (01) | LOC: WOUND 04:13 | DX: L89.892 Pressure ulcer of other site, stage 2 (principal); L89.623 Pressure ulcer of left heel, stage 3; I89.0 Lymphedema, not elsewhere classified; I87.2 Venous insufficiency (chronic) (peripheral); I73.9 Peripheral vascular disease, unspecified; K74.60 Unspecified cirrhosis of liver; B19.10 Unspecified viral hepatitis B without hepatic coma; D50.9 Iron deficiency anemia, unspecified; R11.0 Nausea | CPT/HCPCS: A9270; G0463 ==

== ENCOUNTER 2020-11-21 00:28 | Day surgery (SDC) | payer OTHER | END 2020-11-21 22:53 | disposition home or self-care (01) | LOC: WOUND 00:28 | DX: L89.623 Pressure ulcer of left heel, stage 3 (principal); I89.0 Lymphedema, not elsewhere classified; I87.2 Venous insufficiency (chronic) (peripheral); I73.9 Peripheral vascular disease, unspecified; B19.10 Unspecified viral hepatitis B without hepatic coma; D50.9 Iron deficiency anemia, unspecified; R77.0 Abnormality of albumin; K74.60 Unspecified cirrhosis of liver | CPT/HCPCS: A9270; G0463 ==

== ENCOUNTER 2020-11-28 02:31 | Day surgery (SDC) | payer OTHER | END 2020-11-28 23:18 | disposition home or self-care (01) | LOC: WOUND 02:31 | DX: I89.0 Lymphedema, not elsewhere classified (principal); I87.2 Venous insufficiency (chronic) (peripheral); I73.9 Peripheral vascular disease, unspecified; L89.623 Pressure ulcer of left heel, stage 3; K74.60 Unspecified cirrhosis of liver; B19.10 Unspecified viral hepatitis B without hepatic coma; D50.9 Iron deficiency anemia, unspecified; R77.0 Abnormality of albumin | CPT/HCPCS: G0463 ==

== ENCOUNTER 2021-01-03 16:58 | Inpatient (IN) | payer OTHER ==
[~2021-01-03] VITALS: Ht 177.8 cm; Wt 132.0 kg
[~2021-01-03 16:58] MED LIST changes: -ALDACTONE100 MG PO; -AMPDEX5 PO; +Amphetamine Sal20 MG PO; -Kristalose20 GM PO; -OLANZAPINE PO
[2021-01-03 17:25] LABS: Source, Urine Catheter
[2021-01-03 17:33] LABS: BASOPHILS ABSOLUTE AUTO 0.03 K/mm3 (0.00-0.23); BASOPHILS PERCENT AUTO 0 % (0-2); EOSINOPHILS ABSOLUTE AUTO 0.03 K/mm3 (0.00-0.68); EOSINOPHILS PERCENT AUTO 0 % (0-6); Hematocrit 30.7 % (37.0-53.0); Hemoglobin 10.3 g/dL (13.5-17.5); IMMATURE GRAN ABSOLUTE AUTO 0.08 K/mm3 (0.00-0.10); IMMATURE GRAN PERCENT AUTO 0 % (0-1); LYMPHOCYTES ABSOLUTE AUTO 1.98 K/mm3 (0.84-5.20); LYMPHOCYTES PERCENT AUTO 10 % (21-46); MONOCYTES ABSOLUTE AUTO 1.96 K/mm3 (0.16-1.47); MONOCYTES PERCENT AUTO 10 % (4-13); Mean Corpuscular HGB 29.5 pg (26.0-34.0); Mean Corpuscular HGB Conc 33.6 g/dL (31.5-36.5); Mean Corpuscular Volume 88 fL (80-100); NEUTROPHILS ABSOLUTE AUTO 15.57 K/mm3 (1.96-9.15); NEUTROPHILS PERCENT AUTO 79 % (41-73); Platelet Count 112 K/mm3 (150-400); RDW Coefficient Variation 24.6 % (11.7-14.2); RDW Standard Deviation 78.8 fL (35.1-46.3); Red Blood Cell Count 3.49 M/mm3 (4.30-5.90); White Blood Cell Count 19.65 K/mm3 (4.00-11.30)
[2021-01-03 17:34] LABS: Appearance, Urine Cloudy (Clear); Bilirubin, Urine Neg (Neg); Blood, Urine 5+ (Neg); Color, Urine Amber (P-Yellow); Glucose Qualitative, Urine Neg (Neg); Ketones, Urine 1+ (Neg); Leukocyte Esterase, Urine 2+ (Neg); Nitrite, Urine Neg (Neg); Protein, Urine 4+ (Neg); Urobilinogen, Urine NORM (Normal)
[2021-01-03 17:41] LABS: White Blood Cells, Urine 25-50 /hpf (0-5)
[2021-01-03 17:42] LABS: Bacteria Many /hpf; Squamous Epithelial Cells Rare /hpf (Few)
[2021-01-03 17:45] LABS: Ethanol (Alcohol), Blood, Med <3 mg/dL
[2021-01-03 17:47] LABS: U Amphetamine Screen DETECTED; U Barbituate Screen Not Detected; U Benzodiazapine Screen Not Detected; U Buprenorphine Screen DETECTED; U Cannabinoids Screen Not Detected; U Cocaine Screen Not Detected; U Methadone Screen Not Detected; U Methamphetamine Screen Not Detected; U Opiates Screen Not Detected; U Oxycodone Screen Not Detected; U Phencyclidine Screen Not Detected; U Propoxyphene Screen Not Detected
[2021-01-03 17:49] LABS: Alanine Aminotransfer (ALT/SGP 36 U/L (12-78); Albumin, Blood 1.7 g/dL (3.4-5.0); Albumin/Globulin Ratio 0.4 (0.8-1.8); Alk Phos 216 U/L (50-136); Anion Gap 3 mmol/L (6-16); Aspartate Aminotrans (AST/SGOT 93 U/L (12-37); Bilirubin, Total 1.1 mg/dL (0.1-1.0); Blood Urea Nitrogen 69 mg/dL (8-24); Bun/Creatinine Ratio 27.6 (12.0-20.0); CO2, Blood 22 mmol/L (21-32); Calcium, Blood 7.7 mg/dL (8.5-10.1); Chloride, Blood 111 mmol/L (98-108); Globulin, Blood 4.7 g/dL (2.2-4.0); Glomerular Filtration Rate 27 (60-); Glucose, Blood 73 mg/dL (70-99); Potassium, Blood 8.6 mmol/L (3.5-5.5); Sodium, Blood 136 mmol/L (136-145); Total Protein, Blood 6.4 g/dL (6.4-8.2)
[2021-01-03] MEDS ORDERED: Potassium Chlo20 ME1 PO (19:45)
[2021-01-03] MEDS ORDERED: BUPRENORPHN-NA1 EACH SL (19:48)
[2021-01-03] MEDS ORDERED: CONSTULOSE10 GM/15 M PO (19:49)
[2021-01-03] MEDS ORDERED: ALDACTONE100 MG PO (19:49)
[2021-01-03 20:30] LABS: pH Blood Venous 7.34 (7.34-7.37)
[2021-01-03 20:31] LABS: Base Excess Venous -2.7 mmol/L; Bicarbonate Venous 22.3 mmol/L (24.0-30.0); PCO2 Venous 43.3 mmHg (38-42); PO2 Venous 173 mmHg (38-42)
[2021-01-03 20:46] LABS: SARS-Cov-2 (COVID-19) PCR, MMC NEGATIVE (NEGATIVE)
[2021-01-03 22:29] LABS: Bun/Creatinine Ratio 25.8 (12.0-20.0); Calcium, Blood 7.4 mg/dL (8.5-10.1); Creatinine, Blood 2.6 mg/dL (0.60-1.20); Potassium, Blood 7.7 mmol/L (3.5-5.5)
[2021-01-04 02:15] LABS: BASOPHILS ABSOLUTE AUTO 0.04 K/mm3 (0.00-0.23); BASOPHILS PERCENT AUTO 0 % (0-2); EOSINOPHILS PERCENT AUTO 0 % (0-6); Hematocrit 29.1 % (37.0-53.0); Hemoglobin 9.7 g/dL (13.5-17.5); IMMATURE GRAN PERCENT AUTO 1 % (0-1); LYMPHOCYTES ABSOLUTE AUTO 2.56 K/mm3 (0.84-5.20); LYMPHOCYTES PERCENT AUTO 13 % (21-46); MONOCYTES ABSOLUTE AUTO 2.14 K/mm3 (0.16-1.47); MONOCYTES PERCENT AUTO 11 % (4-13); Mean Corpuscular HGB 29.2 pg (26.0-34.0); Mean Corpuscular HGB Conc 33.3 g/dL (31.5-36.5); Mean Corpuscular Volume 88 fL (80-100); NEUTROPHILS ABSOLUTE AUTO 14.98 K/mm3 (1.96-9.15); NEUTROPHILS PERCENT AUTO 76 % (41-73); Platelet Count 97 K/mm3 (150-400); RDW Standard Deviation 79.4 fL (35.1-46.3); Red Blood Cell Count 3.32 M/mm3 (4.30-5.90); White Blood Cell Count 19.82 K/mm3 (4.00-11.30)
[2021-01-04 02:39] LABS: Albumin, Blood 1.9 g/dL (3.4-5.0); Albumin/Globulin Ratio 0.4 (0.8-1.8); Bilirubin, Total 1.1 mg/dL (0.1-1.0); Bun/Creatinine Ratio 27.6 (12.0-20.0); Calcium, Blood 7.3 mg/dL (8.5-10.1); Creatinine, Blood 2.54 mg/dL (0.60-1.20); Globulin, Blood 4.3 g/dL (2.2-4.0); Potassium, Blood 8.4 mmol/L (3.5-5.5); Total Protein, Blood 6.2 g/dL (6.4-8.2)
[2021-01-04 10:50] LABS: Albumin, Blood 1.9 g/dL (3.4-5.0); Anion Gap 6 mmol/L (6-16); Blood Urea Nitrogen 69 mg/dL (8-24); Bun/Creatinine Ratio 27.9 (12.0-20.0); CO2, Blood 24 mmol/L (21-32); Calcium, Blood 7.2 mg/dL (8.5-10.1); Chloride, Blood 109 mmol/L (98-108); Creatinine, Blood 2.47 mg/dL (0.60-1.20); Glomerular Filtration Rate 27 (60-); Glucose, Blood 79 mg/dL (70-99); Phosphorus, Blood 6.3 mg/dL (2.5-4.9); Potassium, Blood 6.4 mmol/L (3.5-5.5); Sodium, Blood 139 mmol/L (136-145)
--- NOTE | 2021-01-04 23:56 | NUR ---
PT C/O WITHDRAWAL FROM SUBOXONE AND KLONOPIN. ALERTED W/LABS RELAYED AND BOTH MEDS RESTARTED. SUBOXONE RX'D PER HOME LIST BUT SUBOXONE RX'D 0.5MG PO Q8H.
[2021-01-05] MEDS ORDERED: ENTECAVIR1 MG PO (01:25)
--- NOTE | 2021-01-05 03:30 | NUR ---
PT STILL ORIENTED TO SPECIFIC Q'S BUT REMAINS INTERMITTENTLY CONFUSED WHEN FREELY SPEAKING. HE ALSO SEEMS VERY PARANOID NOW AT TIMES. SPO2 WAS LOW 80'S% RECENTLY PER RT W/INCREASED CONFUSION OBSERVED SO WAS PLACED ON 15L NRB MASK TO MAINTAIN SPO2>90%. HE ADMITTED TO WEARING CPAP AT HOME AT TIMES SO NEW ORDER RECIEVED FOR CPAP PROTOCOL W/CONT BIOX. ALSO OK'D 1ST DOSE OF BUMEX TO BE RECIEVED NOW. WCTM CLOSELY.
[2021-01-05 05:09] LABS: Hematocrit 28.8 % (37.0-53.0); Hemoglobin 9.6 g/dL (13.5-17.5); Mean Corpuscular HGB 29.1 pg (26.0-34.0); Mean Corpuscular HGB Conc 33.3 g/dL (31.5-36.5); Mean Corpuscular Volume 87 fL (80-100); Platelet Count 89 K/mm3 (150-400); RDW Standard Deviation 80.2 fL (35.1-46.3); White Blood Cell Count 17.72 K/mm3 (4.00-11.30)
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
[2021-01-05 05:36] LABS: Albumin, Blood 1.6 g/dL (3.4-5.0); Anion Gap 6 mmol/L (6-16); Blood Urea Nitrogen 60 mg/dL (8-24); Bun/Creatinine Ratio 24.2 (12.0-20.0); CO2, Blood 28 mmol/L (21-32); Calcium, Blood 6.9 mg/dL (8.5-10.1); Chloride, Blood 97 mmol/L (98-108); Creatinine, Blood 2.48 mg/dL (0.60-1.20); Glomerular Filtration Rate 27 (60-); Glucose, Blood 139 mg/dL (70-99); Magnesium, Blood 2.7 mg/dL (1.6-2.4); Phosphorus, Blood 6.5 mg/dL (2.5-4.9); Potassium, Blood 4.4 mmol/L (3.5-5.5); Sodium, Blood 131 mmol/L (136-145)
[2021-01-06 04:57] LABS: Hematocrit 29.4 % (37.0-53.0)
[2021-01-06 05:14] LABS: Albumin, Blood 1.4 g/dL (3.4-5.0); Anion Gap 8 mmol/L (6-16); Blood Urea Nitrogen 61 mg/dL (8-24); Bun/Creatinine Ratio 24.2 (12.0-20.0); CO2, Blood 31 mmol/L (21-32); Calcium, Blood 6.5 mg/dL (8.5-10.1); Chloride, Blood 93 mmol/L (98-108); Creatinine, Blood 2.52 mg/dL (0.60-1.20); Glomerular Filtration Rate 27 (60-); Glucose, Blood 134 mg/dL (70-99); Magnesium, Blood 2.4 mg/dL (1.6-2.4); Phosphorus, Blood 7.5 mg/dL (2.5-4.9); Potassium, Blood 3.8 mmol/L (3.5-5.5); Sodium, Blood 132 mmol/L (136-145)
--- NOTE | 2021-01-06 06:36 | NUR ---
55 year old MAle appears older than actual age & appears to have respiratory failure on 21 l oxygen with combined oximizer & nonrebreather. sqats still oless than 90%. Full code status. PT had hughes olkaced for urinary retention diuresis & has greater than 4000 ml cloudy cruz urine out. PT states repeatedly he has schitzophrenia but has vague hx. uses call ross to call for assist repeatedly. On bedrest. PT has multiple scabbed areas arms bilat. DR Reyes in to see PT see orders. Deep edema to chest wall as well as bilat LE '
--- NOTE | 2021-01-06 17:23 | NUR ---
SHIFT SUMMARY NO ACUTE CHANGES T/O SHIFT, A&Ox4, CALM AND COOPERATIVE c CARE, DENIES ANY NEW DISTRESS BESIDES THAT HE IS NOT TAKING ALL OF HIS SCHEDULED HOME MEDS. LEA REVIEWED MEDS AND STARTED APPROPRIATE HOME MEDS. PT REMAINS ON 21 L/MIN O2 TOTAL, SATING AT 90%. PT QUICKLY DROPS INTO HIGH 70'S AND LOW 80'S WITHOUT O2. PT NEEDS TO BE REMINDED AT TIMES TO KEEP NONREBREATHER OVER NOSE AND TAKE BREAKS WHEN TALKING FOR LONG PERIODS OF TIME. EDWARDS REMAINS PATENT AND DRAINING, DARK URINE c SEDIMENT. PT IS CURRENTLY RESTING IN BED TALKING ON THE PHONE, CALL LIGHT WITHIN REACH.
[2021-01-07 05:12] LABS: Albumin, Blood 1.2 g/dL (3.4-5.0); Anion Gap 8 mmol/L (6-16); Blood Urea Nitrogen 66 mg/dL (8-24); Bun/Creatinine Ratio 26.6 (12.0-20.0); CO2, Blood 31 mmol/L (21-32); Calcium, Blood 6.8 mg/dL (8.5-10.1); Chloride, Blood 92 mmol/L (98-108); Creatinine, Blood 2.48 mg/dL (0.60-1.20); Glomerular Filtration Rate 27 (60-); Glucose, Blood 115 mg/dL (70-99); Phosphorus, Blood 7.2 mg/dL (2.5-4.9); Potassium, Blood 3.8 mmol/L (3.5-5.5); Sodium, Blood 131 mmol/L (136-145)
[2021-01-07] MEDS ORDERED: BUPRENORPHINE-1 EACH SL (05:24)
[2021-01-07] MEDS ORDERED: CONSTULOSE10 GM/155 (05:25)
--- NOTE | 2021-01-07 05:41 | NUR ---
PT continues hypoxic with 21 l oxygen via oximizer 15 l & 6 l nonrebreather. Full code status, PT removes oximizer at times & his sat 81% with 6 l nonrebreather. Had to turn oxygen up to 30 l with 20 l oximizer & 10 l nonrebreather. When PT awake he is focused on getting meds such as adderal or clonidine & is very focused omn getting them. He has minimal attempts to move in bed, he has hughes cath for diuresis from fluid overload. PT had been taking rx to treat Hep B for several months & did not bring his own med. He had single covid 19 vaccine around the 3rd week of November [employer]. PT decined bioxx & bipap for resp failure & intermittantly removes oxygen. Tolerating diet with no BM since admit. Changed to oral meds to treat UTI. PT has care providers Psych & he has casemanager. Lives at Hotel with casemanager trying to get [employer] housing. No home oxygen. Family hx GLADIS & need for hemodialysis. PT OT ordered, hypoxia makes it difficult to mobilize.
--- NOTE | 2021-01-07 07:32 | NUR ---
PT is on 25 l oxygen via oximizer & nonrebreather. Desats to 80% with 6 l nrb when he has removed oximizer. 88% with 21 l. Continues focused on multiple meds or coffee. Polite. Does not move much except upper extremities.
[2021-01-07 12:15] LABS: PO2 Arterial 50.9 mmHg (80-100); pH Blood Arterial 7.44 (7.35-7.45)
--- NOTE | 2021-01-07 12:30 | NUR ---
ASSUMED CARE PT ALERT AND ORIENTED. ANSWERING QUESTIONS APPROPRIATELY. PT CAME DOWN ON 15L NRB. SATURATION FLUCTUATING FROM 80-90. RT CALLED AND PT TO BE TRANSITIONED TO AIRVO. BP STABLE. PT DENIES ANY PAIN. PT ORIENTED TO UNIT. AWAITING CHEST XRAY AND ECHO. WILL CONTINUE TO MONITOR CLOSELY.
--- NOTE | 2021-01-07 12:32 | NUR ---
Pt. is not doing very and is transfered to I.C.U to continue his treatment encouraged pt. and offered prayers.
--- NOTE | 2021-01-07 13:15 | NUR ---
1230 TRANSFERRED TO HIGHER LEVEL OF CARE DUE TO OXYGEN SATURATIONS RANGING MOSTLY 84-85% ON 25 L OF O2 VIA OXIMIZER AND NRB MASK. CHURN DRILLER AND MD AWARE. ALL OTHER VITAL SIGNS WITHIN NORMAL LIMITS. ABG COMPLETED PRIOR TO TRANSFER. BEDSIDE REPORT TO OPTICAL TECHNICIAN JM.
--- NOTE | 2021-01-07 14:56 | NUR ---
Echocardiogram completed.
--- NOTE | 2021-01-07 17:43 | NUR ---
SHIFT SUMMARY PT REMAINS ALERT AND ORIENTED. PT ON AIRVO AT 50L AND 90% FIO2. PT DESATURATES WITH MINIMAL ACTIVITY. BP STABLE. HR NSR. PT DENIES ANY PAIN. EDWARDS PATENT AND DRAINING SAIRA URINE. PT HAS HAD VISITOR AT BEDSIDE THIS AFTERNOON. WILL CONTINUE TO MONITOR AND REPORT TO ONCOMING RN.
--- NOTE | 2021-01-07 19:15 | NUR ---
REPORT RECEIVED-CARE ASSUMED-PT RESTING COMFORTABLY ON AIRVO. CAONTINUE ASSESSMETS AND CARE.
--- NOTE | 2021-01-07 21:13 | NUR ---
ASSESS FULL ASSESSMENT AND VITALS DONE AND NOTED IN FLOWSHEET. PT ROOM CHANGE FROM ICU 4 TO ICU 1. PT REMAINS ON AIRVO 50L/90%. BS: DECREASED T/O. CONTINUE ASSESSMENT AND CARE.
--- NOTE | 2021-01-07 23:14 | NUR ---
ASSESS ASSESSMENT-PTASKING TO WHERE HO,E CPAP- CHANGED TO HOME CPAP WITH 15 L IN-VITALS NOTED. NO OTHER CHANGES.
--- NOTE | 2021-01-08 02:55 | NUR ---
ASSESS PT RESTING, WAKES TO VOICE, A&O, NO DISTRESS NOTED AT THIS TIME. EDWARDS DRAINING-DARK SAIRA URINE WITH SEDAMENT. CONTINUES ON 50L/90%. OFFERED TO HELP PT WITH TURNS AND REPOSITION, PT REFUSED, STATES HE CAN DO IT HIMSELF. CONTINUE ASSESSMENTS AND CARE.
[2021-01-08 03:26] LABS: BASOPHILS ABSOLUTE AUTO 0.08 K/mm3 (0.00-0.23); BASOPHILS PERCENT AUTO 1 % (0-2); EOSINOPHILS ABSOLUTE AUTO 0.67 K/mm3 (0.00-0.68); EOSINOPHILS PERCENT AUTO 4 % (0-6); Hematocrit 29.8 % (37.0-53.0); Hemoglobin 10.1 g/dL (13.5-17.5); IMMATURE GRAN ABSOLUTE AUTO 0.13 K/mm3 (0.00-0.10); IMMATURE GRAN PERCENT AUTO 1 % (0-1); LYMPHOCYTES ABSOLUTE AUTO 2.51 K/mm3 (0.84-5.20); LYMPHOCYTES PERCENT AUTO 16 % (21-46); MONOCYTES ABSOLUTE AUTO 1.18 K/mm3 (0.16-1.47); MONOCYTES PERCENT AUTO 7 % (4-13); Mean Corpuscular HGB 29.4 pg (26.0-34.0); Mean Corpuscular HGB Conc 33.9 g/dL (31.5-36.5); Mean Corpuscular Volume 87 fL (80-100); NEUTROPHILS ABSOLUTE AUTO 11.43 K/mm3 (1.96-9.15); NEUTROPHILS PERCENT AUTO 71 % (41-73); Platelet Count 83 K/mm3 (150-400); RDW Coefficient Variation 24.5 % (11.7-14.2); RDW Standard Deviation 77.5 fL (35.1-46.3); Red Blood Cell Count 3.44 M/mm3 (4.30-5.90)
[2021-01-08 03:33] LABS: Mean Platelet Volume 10.4 fL (9.1-12.4)
[2021-01-08 03:47] LABS: Albumin, Blood 1.1 g/dL (3.4-5.0); Anion Gap 7 mmol/L (6-16); Blood Urea Nitrogen 75 mg/dL (8-24); Bun/Creatinine Ratio 30.4 (12.0-20.0); CO2, Blood 34 mmol/L (21-32); Calcium, Blood 7.3 mg/dL (8.5-10.1); Chloride, Blood 91 mmol/L (98-108); Creatinine, Blood 2.47 mg/dL (0.60-1.20); Glomerular Filtration Rate 27 (60-); Glucose, Blood 90 mg/dL (70-99); Magnesium, Blood 2.4 mg/dL (1.6-2.4); Potassium, Blood 3.7 mmol/L (3.5-5.5); Sodium, Blood 132 mmol/L (136-145)
[2021-01-08 03:50] LABS: Phosphorus, Blood 8.4 mg/dL (2.5-4.9)
--- NOTE | 2021-01-08 06:35 | NUR ---
END OF SHIFT PT REMAINS ON AIRVO 90%/50L OVERNIGHT. EDWARDS WITH DARK SAIRA OUTPUT-1000. PT SLEPT ON AND OFF T/O NIGHT.
--- NOTE | 2021-01-08 18:05 | NUR ---
SHIFT SUMMARY NO ACUTE EVENTS THIS SHIFT, VSS. PT IS ALERT, ON AIRVO THIS SHIFT. PT WORKED WITH PT/OT THIS SHIFT. PT IS HIGHLY ANXIOUS AT TIMES, CONSISTENTLY ASKS TO RECIEVE SCHEDULED MEDICATIONS EARLY. THIS RN EDUCATED PATIENT THAT MEDICATIONS NEED TO BE IN GIVEN SCHEDULED SO NOT TO BE TAKEN TOO CLOSE TOGETHER. PT'S SISTER BROUGHT IN HOME MED, ENTECAVIR, WHICH WAS SENT TO PHARMACY AND VERIFIED. OK'D TO BE GIVEN THIS AFTERNOON BY DR. TATE.
--- NOTE | 2021-01-08 21:12 | NUR ---
ASSUMED CARE REPORT RECEIVED FROM JAIME FRANCO AT 1910. PT RESTING IN BED, AIRVO IN PLACE SETTINGS 50L 95% WITH SPO2 94%. PT ALERT AND ORIENTED. MINIMAL MOVEMENT DUE TO PAIN, ABLE TO MOVE ALL EXTREMITIES. LUNG CLEAR WITH DIMINISHED BASES. ABD MILDLY TENDER DUE TO NOT HAVING A BM FOR THE PAST FEW DAYS. HR 90'S SR ON MONITOR, SBP 90-100'S. EDWARDS PATENT AND DRAINING DARK SAIRA URINE TO GRAVITY. 2104: PT TO BE MOVED TO PCU ROOM 16, REPORT CALLED AND GIVEN TO EARLENE FRANCO.
[2021-01-09 04:48] LABS: BASOPHILS ABSOLUTE AUTO 0.07 K/mm3 (0.00-0.23); BASOPHILS PERCENT AUTO 1 % (0-2); EOSINOPHILS ABSOLUTE AUTO 0.75 K/mm3 (0.00-0.68); EOSINOPHILS PERCENT AUTO 5 % (0-6); Hematocrit 29.9 % (37.0-53.0); IMMATURE GRAN ABSOLUTE AUTO 0.16 K/mm3 (0.00-0.10); IMMATURE GRAN PERCENT AUTO 1 % (0-1); LYMPHOCYTES ABSOLUTE AUTO 2.39 K/mm3 (0.84-5.20); LYMPHOCYTES PERCENT AUTO 16 % (21-46); MONOCYTES ABSOLUTE AUTO 1.21 K/mm3 (0.16-1.47); MONOCYTES PERCENT AUTO 8 % (4-13); Mean Corpuscular HGB 29.4 pg (26.0-34.0); Mean Corpuscular HGB Conc 33.4 g/dL (31.5-36.5); Mean Corpuscular Volume 88 fL (80-100); NEUTROPHILS ABSOLUTE AUTO 10.64 K/mm3 (1.96-9.15); NEUTROPHILS PERCENT AUTO 70 % (41-73); Platelet Count 74 K/mm3 (150-400); RDW Coefficient Variation 24.4 % (11.7-14.2); RDW Standard Deviation 77.6 fL (35.1-46.3); White Blood Cell Count 15.22 K/mm3 (4.00-11.30)
[2021-01-09 05:12] LABS: Anion Gap 9 mmol/L (6-16); Blood Urea Nitrogen 86 mg/dL (8-24); Bun/Creatinine Ratio 34.1 (12.0-20.0); CO2, Blood 32 mmol/L (21-32); Chloride, Blood 91 mmol/L (98-108); Creatinine, Blood 2.52 mg/dL (0.60-1.20); Glomerular Filtration Rate 27 (60-); Glucose, Blood 119 mg/dL (70-99); Magnesium, Blood 2.6 mg/dL (1.6-2.4); Potassium, Blood 4.1 mmol/L (3.5-5.5); Sodium, Blood 132 mmol/L (136-145)
--- NOTE | 2021-01-09 05:49 | NUR ---
shift summary pt rested through most of night after being transported over from icu. alert and oriented, although a little odd at times. sats >90% on airvo 50L/90% fio2. tele nsr - ranging 80-90's. c/o chronic pain - see emarMoira hughes in place, draining to gravity and angela care performed. no bm. q2 turns. iv abx infusing. vss. call light within reach, bed in lowest position. will continue to monitor.
--- NOTE | 2021-01-09 09:58 | NUR ---
[facility] Received report from chargeback analyst. Pt is a/o x 4 but does nod off often. He has edema throughout and has scattered scabs. Tom is patent with dark yellow urine output. His lungs sound sare coarse in the upper lobes and he remains on AIRVO at 50 L to maintain sats above 90%. A powerglide was started for IV access in his RUE. He is able to make his needs known and has his call light in reach.
--- NOTE | 2021-01-09 17:16 | NUR ---
Shift Summary Pt is a/o x 4 but has been drowsy and sleeping on and off today. Powerglide was started this morning for IV access. Tom is patent and urine is a dark yellow/brown tint. His appetite has been fair. PT worked with him today. The pt continues to be edematous and is being diuresed. Pt is sitting up in bed watching TV, he has his call light in reach and is able to make his needs known.
[2021-01-10 04:49] LABS: Hematocrit 30.1 % (37.0-53.0); Hemoglobin 10.1 g/dL (13.5-17.5)
[2021-01-10 05:20] LABS: Albumin, Blood 1.1 g/dL (3.4-5.0); Anion Gap 8 mmol/L (6-16); Blood Urea Nitrogen 97 mg/dL (8-24); Bun/Creatinine Ratio 36.7 (12.0-20.0); CO2, Blood 35 mmol/L (21-32); Chloride, Blood 89 mmol/L (98-108); Creatinine, Blood 2.64 mg/dL (0.60-1.20); Glomerular Filtration Rate 25 (60-); Glucose, Blood 112 mg/dL (70-99); Magnesium, Blood 2.9 mg/dL (1.6-2.4); Potassium, Blood 3.5 mmol/L (3.5-5.5); Sodium, Blood 132 mmol/L (136-145)
[2021-01-10 05:35] LABS: Phosphorus, Blood 8.1 mg/dL (2.5-4.9)
--- NOTE | 2021-01-10 06:38 | NUR ---
SHIFT SUMMARY PATIENT FOUND TO BE AN ODD MAN WHO IS A&OX4, BAUTISTA, WITH GEN WEAKNESS. SAYS ODD RANDOM THINGS AT TIMES. N/T TO BLE AT BASELINE. VSS. NSR ON THE MONITOR. +2 PITTING BLE EDEMA. ON AIRVO 50L, 90% SATING MID 90'S ALL NIGHT. APPARENTLY NO BM FOR SEVERAL DAYS BUT REFUSES NEED FOR ADDTIONAL INTERVENTION STATED "i JUST STARTED EATING AGAIN SO IT WILL COME". MODERATLY DISTENDED AND FIRM BUT APPARENTLY NOT TENDER AND STILL PASSING FLATUS. EDWARDS WITH TEA COLORED URINE WITH SEDIMENT DRAINING TO GRAVITY. IV ABX CONTINUE PER ORDER. NO PAIN OR DISTRESS NOTED UPON ASSESSMENT. NO ACUTE CONCERNS AT THIS TIME. WILL CONTINUE TO MONITOR UNTIL REPORT GIVEN TO RITESH FRANCO.
--- NOTE | 2021-01-10 10:16 | NUR ---
pt laying in bed, wanting breakfast immed, he was told it was on the way, lungs are course t/o dim in bases, currently on airvo, states he is breathing ok, but had a rough night, some of his conversation is disjointed, hrr, tele in place running sr per monitor, see strip, edema noted to all ext iv is power glide to anthony site is clear and patent, btx4, abd flat soft nontender, voids without diff, skin has brusings and scabs, otherwise c/w/d, chika escobar, call light in reach.
--- NOTE | 2021-01-10 18:29 | NUR ---
pt has been asking for his meds early consistantly through out the day, did work with pt and ot, no acutes changes this shift. call light in reach.
--- NOTE | 2021-01-10 22:13 | NUR ---
ASSUMPTION OF CARE REPORT RECIEVED FROM OUTGOING RN.
--- NOTE | 2021-01-11 05:17 | NUR ---
SHIFT SUMMARY PT IS CURRENTLY SLEEPING. PT HAS BEEN A&O FOR THE DURATION OF WAKING HOURS, WHEN ROUSED FROM SLEEP PT IS VERY CONFUSED AND SAYS THINGS THAT NOT CONTEXTUALLY RELEVANT. PT HAS BEEN SLOW TO RESPOND TO ANY VERBAL COMMANDS OR PROMPTS. O2 SAT HAS CONSISTENTLY BEEN >90%. PT HAS EXPRESSED NO COMPLAINTS OR SOB, THOUGH VISUALLY APPEARS MILDLY DYSPNEIC AT TIMES. NO OTHER ACUTE CHANGES NOTED.
[2021-01-11 05:33] LABS: BASOPHILS ABSOLUTE AUTO 0.08 K/mm3 (0.00-0.23); BASOPHILS PERCENT AUTO 1 % (0-2); EOSINOPHILS ABSOLUTE AUTO 0.59 K/mm3 (0.00-0.68); EOSINOPHILS PERCENT AUTO 5 % (0-6); Hematocrit 30.9 % (37.0-53.0); Hemoglobin 10.1 g/dL (13.5-17.5); IMMATURE GRAN ABSOLUTE AUTO 0.23 K/mm3 (0.00-0.10); IMMATURE GRAN PERCENT AUTO 2 % (0-1); LYMPHOCYTES ABSOLUTE AUTO 2.12 K/mm3 (0.84-5.20); LYMPHOCYTES PERCENT AUTO 17 % (21-46); MONOCYTES ABSOLUTE AUTO 1.16 K/mm3 (0.16-1.47); MONOCYTES PERCENT AUTO 9 % (4-13); Mean Corpuscular HGB 29.2 pg (26.0-34.0); Mean Corpuscular HGB Conc 32.7 g/dL (31.5-36.5); Mean Corpuscular Volume 89 fL (80-100); NEUTROPHILS ABSOLUTE AUTO 8.19 K/mm3 (1.96-9.15); NEUTROPHILS PERCENT AUTO 66 % (41-73); Platelet Count 64 K/mm3 (150-400); RDW Coefficient Variation 23.9 % (11.7-14.2); RDW Standard Deviation 78.1 fL (35.1-46.3); Red Blood Cell Count 3.46 M/mm3 (4.30-5.90); White Blood Cell Count 12.37 K/mm3 (4.00-11.30)
[2021-01-11 06:04] LABS: Anion Gap 7 mmol/L (6-16); Blood Urea Nitrogen 109 mg/dL (8-24); Bun/Creatinine Ratio 35.7 (12.0-20.0); CO2, Blood 33 mmol/L (21-32); Calcium, Blood 8.2 mg/dL (8.5-10.1); Chloride, Blood 91 mmol/L (98-108); Creatinine, Blood 3.05 mg/dL (0.60-1.20); Glomerular Filtration Rate 21 (60-); Glucose, Blood 123 mg/dL (70-99); Magnesium, Blood 3.1 mg/dL (1.6-2.4); Potassium, Blood 3.6 mmol/L (3.5-5.5); Sodium, Blood 131 mmol/L (136-145)
[2021-01-11 06:44] LABS: Phosphorus, Blood 8.5 mg/dL (2.5-4.9)
--- NOTE | 2021-01-11 08:00 | NUR ---
pt laying in bed with eyes closed, wakes with name and touch, but immediatly returns to sleep when left undisturbed, due to his drowsiness will hold sedating meds. pt is fixating on his adderall, was explained to him it was given at 530 and due again at 630 pm, lungs are course, dim in bases, resp even and unlabord, no cough noted this am, is currently on airvo, sats low 90's, hrr, tele in place running sr per monitor, see strip, edema is some better today, has a hughes cath draining tea colored urine, can see through it today, max assist, is bed rest, chika, skin has scattered bruisings and scabs, moves upper arms, chika, call light in reach.
--- NOTE | 2021-01-11 17:39 | NUR ---
pt is saying he doesn't want a bedsore, explained that the only way to prevent that is to allow us to turn you when your offered, he has refused every time, even though we attempt to explain why, he states he knows. he also refused pt, has been fixated on his adderall all day, no further changes, call light in reach.
[2021-01-12 04:02] LABS: Hematocrit 31.1 % (37.0-53.0); Hemoglobin 10.3 g/dL (13.5-17.5)
[2021-01-12 04:16] LABS: Albumin, Blood 1.1 g/dL (3.4-5.0); Anion Gap 10 mmol/L (6-16); Blood Urea Nitrogen 127 mg/dL (8-24); Bun/Creatinine Ratio 37.7 (12.0-20.0); CO2, Blood 33 mmol/L (21-32); Calcium, Blood 8.3 mg/dL (8.5-10.1); Chloride, Blood 89 mmol/L (98-108); Creatinine, Blood 3.37 mg/dL (0.60-1.20); Glomerular Filtration Rate 19 (60-); Glucose, Blood 111 mg/dL (70-99); Magnesium, Blood 3.1 mg/dL (1.6-2.4); Potassium, Blood 3.8 mmol/L (3.5-5.5); Sodium, Blood 132 mmol/L (136-145)
[2021-01-12 04:52] LABS: Phosphorus, Blood 8.6 mg/dL (2.5-4.9)
--- NOTE | 2021-01-12 05:27 | NUR ---
SHIFT SUMMARY PT HAS SLEPT MOST OF THE NIGHT THOUGH WAS VERY EASILY AROUSED AND MAINTAINED WAKEFULNESS WITHOUT INTERVENTION. PT RECIEVED A FULL BED BATH PER PT REQUEST, ROLLED SIDE TO SIDE ON COMMAND, AND PERFORMED ROM TO BUE ON COMMAND. PT WAS MILDLY CONFUSED AT START OF SHIFT AND WOULD REPEAT QUESTIONS OR STATEMENTS MULTIPLE TIMES, THIS SEEMED TO IMPROVE THE NIGHT PROGRESSED. NO OTHER ACUTE CHANGES WERE NOTED, CALL LIGHT AND PERSONAL BELONGINGS WITHIN REACH.
--- NOTE | 2021-01-12 18:52 | NUR ---
SHIFT SUMMARY: NO ACUTE CHANGES T/OUT SHIFT. PT CONTINUES LETHARGIC, AROUSES EASILY AND COOPERATES WITH CARE, ASKS QUESTIONS ABOUT MEDICATIONS, SOMETIMES REPETITIVE IN QUESTIONING. PT TRANSITIONED TO [place] NC, MAINTAINING SATS >90% ON 7 L/MIN. SR ON MONITOR. INDWELLING EDWARDS CONTINUES TO DRAIN TEA COLORED URINE, PT DOES ATTEMPT BM ON BEDPAN, UNABLE TO PRODUCE BM BUT DOES PASS GAS. WILL CONTINUE TO MONITOR AND TREAT ACCORDINGLY UNTIL CHANGE OF SHIFT.
[2021-01-13 04:25] LABS: Hematocrit 29.7 % (37.0-53.0); Hemoglobin 9.9 g/dL (13.5-17.5)
[2021-01-13 04:44] LABS: Anion Gap 9 mmol/L (6-16); Blood Urea Nitrogen 144 mg/dL (8-24); Bun/Creatinine Ratio 40.9 (12.0-20.0); CO2, Blood 32 mmol/L (21-32); Calcium, Blood 8.5 mg/dL (8.5-10.1); Chloride, Blood 90 mmol/L (98-108); Creatinine, Blood 3.52 mg/dL (0.60-1.20); Glomerular Filtration Rate 18 (60-); Glucose, Blood 113 mg/dL (70-99); Sodium, Blood 131 mmol/L (136-145)
--- NOTE | 2021-01-13 06:50 | NUR ---
SUMMARY NO ACUTE CHANGES NOTED THROUGH THE NIGHT. PT WAS ABLE TO SLEEP WITH NO PROBLEMS. PT HAS C/0 MEDICATION SCHEDULE & MAKES COMMENTS ABOUT NOT "GETTING THE RIGHT AMOUNT, AT THE RIGHT TIME". PT WAS EDUCATED ON HIS MEDICATION REGIMEN & ENC TO SPEAK WITH THE PHYSICIAN IN THE AM. PT IS UNABLE TO RECALL HIS HOME MEICATION DOSES. PI IS ON 6 L O2 VIA NC, VSS, CALL LIGHT IN REACH, REPORT GIVEN TO DAY RN.
--- NOTE | 2021-01-13 13:37 | NUR ---
UPDATE: ASSUMED CARE OF PT THIS AM APPROX 0715 AFTER RECEIVING REPORT FROM SALVADOR RICHEY. PT SLEEPING OFTEN BUT AROUSING TO STAFF ENTERING ROOM, A&Ox3, ANSWERING QUESTIONS APPROPRIATELY, COOPERATIVE WITH CARE. PT O2 FLOW TITRATED TO 5 L/MIN VIA NC, TOLERATING WELL AND MAINTAINING O2 SATS >93%, SR ON MONITOR. PT C/O ABD PAIN W/ONE EPISODE EMESIS AFTER EATING BREAKFAST, NO EMESIS SINCE THEN, RESTING QUIETLY IN ROOM. APPROX 1230, THIS RN ATTEMPTED TO WAKE PT FOR LUNCH AND PO MEDICATION ADMINISTRATION. DR HERNANDEZ ALSO TO ROOM. PT MORE LETHARGIC THAN HE HAS BEEN THIS AM AND YESTERDAY, OPENING EYES THEN FALLING QUICKLY BACK TO SLEEP. DR HERNANDEZ STATES SHE WILL PLACE ORDERS. THIS RN REMAINS IN ROOM, MEDICATES PT WITH IV MEDICATIONS, DISCOVERS PT HOME SUBOXONE AT THE BEDSIDE TORN OPEN WITH THREE OPEN AND EMPTY PACKAGES STUFFED INSIDE THE KLEENEX BOX AT THE BEDSIDE. HOME KLONOPIN WAS ALSO DISCOVERED IN PT BELONGINGS. BOTH MEDICATIONS WERE GATHERED AND TAKEN TO PHARMACY. DR HERNANDEZ UPDATED ON PT CONDITION. AT THIS TIME, PT IS AWAKE AND EATING HIS LUNCH. WILL CONTINUE TO MONITOR AND TREAT ACCORDINGLY.
--- NOTE | 2021-01-13 14:54 | NUR ---
Met pt. lying in bed resting ,pt. is fine prayed for him
--- NOTE | 2021-01-13 16:08 | NUR ---
SBAR REPORT FROM SALVADOR MANUEL PCU
--- NOTE | 2021-01-14 03:45 | NUR ---
PT HAD SUDDEN EPISODE OF NAUSEA W/LARGE AMT UNDIGESTED EMESIS. MADE AWARE W/NEW ORDERS RECIEVED FOR ZOFRAN PRN. MED RECIEVED FOR TOLERALE RELIEF.
--- NOTE | 2021-01-14 04:57 | NUR ---
SUMMARY: PT A/OX4, CALLS APPROPRIATELY TO SPECIFY NEEDS AND IS PLEASANT AND COOPERATIVE W/CARE. HE IS CONTANKEROUS AT TIMES AND CALLS FREQUENTLY FOR NON-ACUTE NEEDS. PT RE-EDUCATED RE: MEDICATION REGIMEN D/T OFTEN REQUESTING PREVIOUSLY RECIEVED MEDS. PRN KLONOPIN PROVIDED FOR SLEEP PER PT REQUEST. IV ABX PROVIDED THEN R.UA PG WAS SL. EDWARDS IS PATENT/DRAINING TEA COLORED URINE. HE REMAINS ON 5L O2 W/SPO2 WNL AND RESPS E/U. HE'S ON BEDREST W/TURN SCHEDULE MAINTAINED AND EXT'S ELEVATED FOR GENERAL ANASARCA. PT BECAME NAUSEOUS THIS SHIFT W/LARGE AMT OF UNDIGESTED FOOD EMESIS NOTED. HE'D HAD X1 N/V DURING DAY SHIFT TOO FOLLOWING BREAKFAST. MADE AWARE W/ZOFRAN RX'D AND RECIEVED FOR TOLERABLE RELIEF. NO AUTE CHANGES, VSS/AFEBRILE. WCTM AND REPORT TO DAY RN.
[2021-01-14 06:51] LABS: BASOPHILS ABSOLUTE AUTO 0.07 K/mm3 (0.00-0.23); BASOPHILS PERCENT AUTO 1 % (0-2); EOSINOPHILS PERCENT AUTO 3 % (0-6); Hematocrit 29.9 % (37.0-53.0); Hemoglobin 10.2 g/dL (13.5-17.5); IMMATURE GRAN ABSOLUTE AUTO 0.11 K/mm3 (0.00-0.10); IMMATURE GRAN PERCENT AUTO 1 % (0-1); LYMPHOCYTES ABSOLUTE AUTO 1.54 K/mm3 (0.84-5.20); LYMPHOCYTES PERCENT AUTO 15 % (21-46); MONOCYTES ABSOLUTE AUTO 1.08 K/mm3 (0.16-1.47); MONOCYTES PERCENT AUTO 11 % (4-13); Mean Corpuscular HGB 29.6 pg (26.0-34.0); Mean Corpuscular HGB Conc 34.1 g/dL (31.5-36.5); Mean Corpuscular Volume 87 fL (80-100); NEUTROPHILS ABSOLUTE AUTO 6.94 K/mm3 (1.96-9.15); NEUTROPHILS PERCENT AUTO 69 % (41-73); Platelet Count 68 K/mm3 (150-400); RDW Coefficient Variation 23.6 % (11.7-14.2); RDW Standard Deviation 74.9 fL (35.1-46.3); Red Blood Cell Count 3.45 M/mm3 (4.30-5.90); White Blood Cell Count 10.04 K/mm3 (4.00-11.30)
[2021-01-14 07:13] LABS: Magnesium, Blood 3.5 mg/dL (1.6-2.4)
--- NOTE | 2021-01-14 07:24 | NUR ---
PT HAD ANOTHER EPISODE NAUSEA W/SM.AMT OF LIQUID EMESIS SHORTLY AFTER RECIEVING AM ADDERAL TABLETS. STAFF SUSPECT POSSIBLE ILEUS/OBTSTRUCTION SINCE PT ALSO REPORT NO BM SINCE ADMIT. NO RECORDED BM OBSERVED SINCE 01/03/21 DESPITE TAKING LACTULOSE DAILY. HOSPITALIST PAGED AND DAY RN MADE AWARE DURING AM SHIFT REPORT.
[2021-01-14 07:30] LABS: Albumin, Blood 1.1 g/dL (3.4-5.0); Anion Gap 9 mmol/L (6-16); Blood Urea Nitrogen 151 mg/dL (8-24); Bun/Creatinine Ratio 36.2 (12.0-20.0); CO2, Blood 31 mmol/L (21-32); Calcium, Blood 8.4 mg/dL (8.5-10.1); Chloride, Blood 91 mmol/L (98-108); Creatinine, Blood 4.17 mg/dL (0.60-1.20); Glomerular Filtration Rate 15 (60-); Glucose, Blood 108 mg/dL (70-99); Phosphorus, Blood 10.1 mg/dL (2.5-4.9); Potassium, Blood 4.7 mmol/L (3.5-5.5); Sodium, Blood 131 mmol/L (136-145)
[2021-01-14 11:31] LABS: Creatinine, Blood 4.34 mg/dL (0.60-1.20)
--- NOTE | 2021-01-14 14:20 | NUR ---
pt. is in bed and on phone and is doing much betteer prayed for him
--- NOTE | 2021-01-14 16:17 | NUR ---
RETURNED FROM HAVING PERMACATH PLACED TO LEFT CHEST.
--- NOTE | 2021-01-14 18:42 | NUR ---
SHIFT SUMMARY LACTULOSE ENEMA GIVEN WITH LARGE BMx3. REPEAT ENEMA ORDERED FROM PHARMACY AND PENDING DELIVERY. EMESIS AFTER JUICE, PRE BM, THIS MORNING. EMESIS AFTER WATER POST BM. PATIENT KEPT NPO. GOOD APPETITE. NO SOLID FOODS GIVEN THIS SHIFT. LEFT CHEST PERMACATH PLACED AND READY FOR USE. RULA RIVAS RN NOTIFIED. PATIENT LETHARGIC POST PERMACATH PLACEMENT. MORE FORGETFUL, AND DROWSY THROUGHOUT SHIFT.
--- NOTE | 2021-01-14 19:15 | NUR ---
ASSUMED CARE RECEIVED REPORT FROM SALVADOR ARIZMENDI. PT RESTING, IN NAD. DROWSY, BUT AROUSABLE. NO ACUTE NEEDS ASSESSED AT THIS TIME. CALL LIGHT, POSSESSIONS IN REACH, BED IN LOW AND LOCKED POSITION WITH ALARMS ON.
--- NOTE | 2021-01-15 06:45 | NUR ---
ACCOUNT CONTACT ASSOCIATE SUMMARY PT APPEARS INCREASINGLY ALERT THIS AM, APPEARED TO SLEEP WELL T/O NIGHT. HAD MEDIUM BM'S X2, TOLERATED FULL DOSE OF ENEMA THIS AM. NO OTHER ACUTE CONCERNS TO REPORT OVERNIGHT. VS REVIEWED,WNL. O2 SATS IN LOW TO MID-90'S ON 2L/NC. NO ACUTE NEEDS ASSESSED AT THIS TIME. CALL LIGHT, POSSESSIONS IN REACH, BED IN LOW AND LOCKED POSITION WITH ALARMS ON. EDWARDS CATHETER PATENT AND DRAINING TO GRAVITY. WILL REPORT OFF TO ONCOMING RN.
[2021-01-15 07:03] LABS: BASOPHILS ABSOLUTE AUTO 0.07 K/mm3 (0.00-0.23); BASOPHILS PERCENT AUTO 1 % (0-2); EOSINOPHILS ABSOLUTE AUTO 0.21 K/mm3 (0.00-0.68); EOSINOPHILS PERCENT AUTO 2 % (0-6); Hematocrit 27.7 % (37.0-53.0); Hemoglobin 9.4 g/dL (13.5-17.5); IMMATURE GRAN ABSOLUTE AUTO 0.05 K/mm3 (0.00-0.10); IMMATURE GRAN PERCENT AUTO 1 % (0-1); LYMPHOCYTES PERCENT AUTO 17 % (21-46); MONOCYTES ABSOLUTE AUTO 1.15 K/mm3 (0.16-1.47); MONOCYTES PERCENT AUTO 12 % (4-13); Mean Corpuscular HGB 29.7 pg (26.0-34.0); Mean Corpuscular HGB Conc 33.9 g/dL (31.5-36.5); Mean Corpuscular Volume 88 fL (80-100); NEUTROPHILS ABSOLUTE AUTO 6.59 K/mm3 (1.96-9.15); NEUTROPHILS PERCENT AUTO 68 % (41-73); Platelet Count 64 K/mm3 (150-400); RDW Coefficient Variation 23.6 % (11.7-14.2); RDW Standard Deviation 75.9 fL (35.1-46.3); Red Blood Cell Count 3.16 M/mm3 (4.30-5.90); White Blood Cell Count 9.67 K/mm3 (4.00-11.30)
[2021-01-15 07:12] LABS: Albumin, Blood 1.1 g/dL (3.4-5.0); Anion Gap 9 mmol/L (6-16); CO2, Blood 32 mmol/L (21-32); Calcium, Blood 8.2 mg/dL (8.5-10.1); Chloride, Blood 91 mmol/L (98-108); Creatinine, Blood 4.91 mg/dL (0.60-1.20); Glomerular Filtration Rate 12 (60-); Glucose, Blood 100 mg/dL (70-99); Magnesium, Blood 3.6 mg/dL (1.6-2.4); Potassium, Blood 4.4 mmol/L (3.5-5.5); Sodium, Blood 132 mmol/L (136-145)
[2021-01-15 07:45] LABS: Blood Urea Nitrogen 166 mg/dL (8-24); Bun/Creatinine Ratio 33.8 (12.0-20.0); Phosphorus, Blood 11.3 mg/dL (2.5-4.9)
--- NOTE | 2021-01-15 13:25 | NUR ---
Pt. is not in the room I hope to repeat the visit if I have the time to do so .
--- NOTE | 2021-01-15 14:35 | NUR ---
Brief supportive visit this afternoon. Pt resting in bed and is pleasantly confused. Pt denies pain at this time and states he is hungry. Spoke with Primary RN and discussed case. Plan will be to call family and offer supportive conversation.
--- NOTE | 2021-01-15 15:30 | NUR ---
ALERT TO SELF. SLOW TO RESPOND. MENTALLY HANDICAPPED(?). UNSURE WHAT NORMAL MENTATION IS WITH PALLIATIVE CARE CALLING RELATIVE TO VERIFY. UNLABORED RESPIRATIONS. ASKS FOR CLONAZEPAM OFTEN, BUT WHEN RN GOES IN WITH MED PATIENT IS SLEEPING. O.T. IN TO CHECK ON PATIENT. TM
--- NOTE | 2021-01-15 18:03 | NUR ---
ALERT TO SELF. SINCE DIALYSIS HAS BEEN VERY SLEEPY. WILL WAKE UP TO NAME BUT THEN FALLS BACK TO SLEEP. EVENING BINDERS AND ADDERALL HELD ASPIRATION RISK. THIS AM PATIENT PERSEVERATED ON CLONAZEPAM AND WAS NOT QUITS SLEEPY BUT MED NOT GIVEN. UNLABORED RESPIRATIONS. WCTM
[2021-01-16 05:40] LABS: BASOPHILS ABSOLUTE AUTO 0.08 K/mm3 (0.00-0.23); BASOPHILS PERCENT AUTO 1 % (0-2); EOSINOPHILS ABSOLUTE AUTO 0.21 K/mm3 (0.00-0.68); EOSINOPHILS PERCENT AUTO 2 % (0-6); Hematocrit 28.3 % (37.0-53.0); Hemoglobin 9.3 g/dL (13.5-17.5); IMMATURE GRAN ABSOLUTE AUTO 0.04 K/mm3 (0.00-0.10); IMMATURE GRAN PERCENT AUTO 1 % (0-1); LYMPHOCYTES ABSOLUTE AUTO 1.92 K/mm3 (0.84-5.20); LYMPHOCYTES PERCENT AUTO 22 % (21-46); MONOCYTES PERCENT AUTO 15 % (4-13); Mean Corpuscular HGB 29.4 pg (26.0-34.0); Mean Corpuscular HGB Conc 32.9 g/dL (31.5-36.5); Mean Corpuscular Volume 90 fL (80-100); NEUTROPHILS ABSOLUTE AUTO 5.15 K/mm3 (1.96-9.15); NEUTROPHILS PERCENT AUTO 59 % (41-73); Platelet Count 70 K/mm3 (150-400); RDW Coefficient Variation 23.9 % (11.7-14.2); RDW Standard Deviation 79.6 fL (35.1-46.3); Red Blood Cell Count 3.16 M/mm3 (4.30-5.90)
--- NOTE | 2021-01-16 06:10 | NUR ---
SHIFT SUMMARY: LETHARGIC MOST OF NOC, SLEEPING OR FALLING RIGHT BACK TO SLEEP AFTER SPEAKING A FEW WORDS. UNABLE TO KEEP EYES OPEN TO EVEN TAKE A BITE OF FOOD. ANASARA. DOES NOT LIKE TO USE EXTREMITIES MUCH, WAS UNABLE TO HOLD HIS OWN PUDDING CUP DO TO WANTING TO FALL RIGHT BACK TO SLEEP. CATHETER PATENT AND DRAINING DARK SAIRA URINE, SMALL AMOUNTS. POWERGLIDE DRESSING CHANGED, FLUSHED AND WAS ABLE TO DRAW BLOOD. VS WNL, AFEBRILE. SLEPT ALL NOC. NO ACUTE CHANGES OR CONCERNS. CALL LIGHT IS IN REACH AND BED ALARM IS ON.
[2021-01-16 06:26] LABS: Albumin, Blood 1.1 g/dL (3.4-5.0); Anion Gap 10 mmol/L (6-16); Blood Urea Nitrogen 122 mg/dL (8-24); CO2, Blood 30 mmol/L (21-32); Calcium, Blood 8.5 mg/dL (8.5-10.1); Chloride, Blood 95 mmol/L (98-108); Glomerular Filtration Rate 13 (60-); Glucose, Blood 119 mg/dL (70-99); Magnesium, Blood 3.3 mg/dL (1.6-2.4); Potassium, Blood 4.3 mmol/L (3.5-5.5); Sodium, Blood 135 mmol/L (136-145)
[2021-01-16 06:57] LABS: Phosphorus, Blood 8.7 mg/dL (2.5-4.9)
[2021-01-16 09:10] LABS: HBSAG SCREEN Positive (Negative); HEP A AB, IGM Negative (Negative); HEP B CORE AB, IGM Negative (Negative); HEP C VIRUS AB >11.0 (0.0-0.9)
--- NOTE | 2021-01-16 14:01 | NUR ---
Pt. is in bbed resting , doing fine prayed for him.
--- NOTE | 2021-01-16 19:27 | NUR ---
PT REAMINS CONFUSED WITH AH/VH AND FORGETFUL. VERY PLEASANT AND COOPERATIVE. PT STATES HE CAN NOT USE HANDS AND KEEPS THEM FLACID AT HIS SIDE. PT VISUALIZED USING BOTH ARMS AND HANDS TO EAT AND PULLED OUT HIS POWER GLIDE AT END OF SHIFT. PT MKAES NO C/O AT THIS TIME. BED IN LOW POSITION AND CALL LIGHT WITHIN REACH. STAFF WILL CONTINUE TO MONITOR.
--- NOTE | 2021-01-16 20:04 | NUR ---
ASSUMED CARE. ALERT, SLEEPY, CONFUSED, FORGETFUL. DENIES PAIN. LS DIMINISHED, GENERALIZED EDEMA EVERY WHERE. EDWARDS WITH DARK SAIRA URINE. WAS UP IN THE CHAIR FOR SOME TIME TODAY. VERY TIRED NOW. DENIES ANY OTHER NEEDS. MEDS GIVEN.
[2021-01-17 01:14] LABS: BASOPHILS ABSOLUTE AUTO 0.08 K/mm3 (0.00-0.23); BASOPHILS PERCENT AUTO 1 % (0-2); EOSINOPHILS ABSOLUTE AUTO 0.33 K/mm3 (0.00-0.68); EOSINOPHILS PERCENT AUTO 4 % (0-6); Hematocrit 28.8 % (37.0-53.0); Hemoglobin 9.5 g/dL (13.5-17.5); IMMATURE GRAN ABSOLUTE AUTO 0.07 K/mm3 (0.00-0.10); IMMATURE GRAN PERCENT AUTO 1 % (0-1); LYMPHOCYTES ABSOLUTE AUTO 2.15 K/mm3 (0.84-5.20); LYMPHOCYTES PERCENT AUTO 23 % (21-46); MONOCYTES ABSOLUTE AUTO 1.69 K/mm3 (0.16-1.47); MONOCYTES PERCENT AUTO 18 % (4-13); Mean Corpuscular HGB 29.7 pg (26.0-34.0); Mean Corpuscular Volume 90 fL (80-100); NEUTROPHILS ABSOLUTE AUTO 4.96 K/mm3 (1.96-9.15); NEUTROPHILS PERCENT AUTO 53 % (41-73); Platelet Count 76 K/mm3 (150-400); RDW Coefficient Variation 23.9 % (11.7-14.2); RDW Standard Deviation 78.7 fL (35.1-46.3); White Blood Cell Count 9.28 K/mm3 (4.00-11.30)
[2021-01-17 01:26] LABS: Albumin, Blood 1.1 g/dL (3.4-5.0); Anion Gap 5 mmol/L (6-16); Blood Urea Nitrogen 86 mg/dL (8-24); Bun/Creatinine Ratio 19.7 (12.0-20.0); CO2, Blood 31 mmol/L (21-32); Calcium, Blood 8.3 mg/dL (8.5-10.1); Chloride, Blood 98 mmol/L (98-108); Creatinine, Blood 4.37 mg/dL (0.60-1.20); Glomerular Filtration Rate 14 (60-); Glucose, Blood 104 mg/dL (70-99); Magnesium, Blood 2.7 mg/dL (1.6-2.4); Phosphorus, Blood 7.1 mg/dL (2.5-4.9); Potassium, Blood 4.5 mmol/L (3.5-5.5); Sodium, Blood 134 mmol/L (136-145)
--- NOTE | 2021-01-17 05:18 | NUR ---
SHIFT SUMMARY; VICENTE BECAME MORE ALERT YELLING OUT, VERY SLOW TO RESPOND, DIFFICULTING GETTING WORDS OUT. HAD SEVERAL EPISODES OF EMESIS TONIGHT. WAS THROWING UP EVERYTHING HE DRANK, GAVE ZOFRAN WHICH DID NOT HELP. MADE HIM NPO TILL HIS STOMACH SETTLED DOWN. +4 EDEMA GENERALIZED EVERYWHERE. HE CAN BARELY MOVE MOST OF THE TIME. NEW IV STARTED IN THE LEFT UPPER ARM. NO PAIN NOTED. STATES HE JUST FEELS VERY SICK. ANTIBOTICS GIVEN. NAUSEA SUBSIDED. BED ALARM ON, VS WNL, ELECTROLYES ARE ALL OFF, VERY LITTLE TO NONE URINE OUTPUT. CALL LIGHT IN REACH. WILL CONTINUE TO MONITOR.
--- NOTE | 2021-01-17 13:08 | NUR ---
Met pt lying in bed and his nurses in the room attending to his needs ,pt.reports doing fine prayed and encouraged pt.
--- NOTE | 2021-01-17 19:30 | NUR ---
ASSUMED CARE. VICENTE STATES "IM DYING IN HERE". STARTED TO TALK ABOUT HOW HE IS NOT GETTING THE RIGHT MEDICATIONS OF HIS SUBOXENE. INFORMED HIM WHAT WAS ON THE LIST AND THAT I WILL CALL MD REGARING THE MEDICATION AFTER MEDS WERE HANDED OUT. HE AGREED TO THIS BUT CONTINUED TO REPEAT HIS MEDICATION. DENIED ANY NAUSEA AT THIS TIME. DENIES PAIN. GENERALIZED EDEMA HAS DECREASED IN ARMS, ABDOMIN, AND LEGS. HE IS MORE ALERT AND ABLE TO TRACK CONVERSATION. HE IS MOVING HIS ARMS MORE AND DOING MORE FOR HIMSELF. HIS SPEECH HAS IMPROVED WELL. WILL CALL MD. CALL LIGHT IS IN REACH. BED ALARM IS ON.
--- NOTE | 2021-01-17 22:10 | NUR ---
VICENTE HAS BEEN YELLING OUT, HIGH ANXIETY, GOING OFF ABOUT HIS MEDICATION. TALKED TO HIM ABOUT THE YELLING IT IS DISTURBING THE NEXT PATIENT OVER. ASKED HIM TO USE HIS CALL LIGHT INSTEAD, HE AGREED. HE STATED FEELING VERY ANXIOUS, GAVE HIS KLONOPIN. WILL CALL .
--- NOTE | 2021-01-18 00:30 | NUR ---
CALLED MD AND INFORMED OF SITUATION REGARDING HIS SUBOXENE. HE ENCOURAGED US TO TALK TO DAYSHIFT DOCTOR REGARDING REGULAR MEDICATION. REGLAN STARTED FOR NAUSEA AND VOMITING. HAS THROWN UP X1 150ML. STATES HE IS HUNGRY INFORMED ONLY TO EAT SANDWHICH. DID GIVEN REGLAN.
[2021-01-18 05:05] LABS: BASOPHILS PERCENT AUTO 1 % (0-2); EOSINOPHILS ABSOLUTE AUTO 0.28 K/mm3 (0.00-0.68); EOSINOPHILS PERCENT AUTO 3 % (0-6); Hematocrit 28.2 % (37.0-53.0); Hemoglobin 9.1 g/dL (13.5-17.5); IMMATURE GRAN ABSOLUTE AUTO 0.04 K/mm3 (0.00-0.10); IMMATURE GRAN PERCENT AUTO 0 % (0-1); LYMPHOCYTES PERCENT AUTO 20 % (21-46); MONOCYTES PERCENT AUTO 14 % (4-13); Mean Corpuscular HGB 29.3 pg (26.0-34.0); Mean Corpuscular HGB Conc 32.3 g/dL (31.5-36.5); Mean Corpuscular Volume 91 fL (80-100); NEUTROPHILS ABSOLUTE AUTO 6.53 K/mm3 (1.96-9.15); NEUTROPHILS PERCENT AUTO 62 % (41-73); Platelet Count 76 K/mm3 (150-400); RDW Coefficient Variation 23.6 % (11.7-14.2); RDW Standard Deviation 79.3 fL (35.1-46.3); Red Blood Cell Count 3.11 M/mm3 (4.30-5.90); White Blood Cell Count 10.55 K/mm3 (4.00-11.30)
[2021-01-18 05:23] LABS: Albumin, Blood 1.1 g/dL (3.4-5.0); Albumin/Globulin Ratio 0.2 (0.8-1.8); Bilirubin, Direct 0.2 mg/dL (0.0-0.3); Bilirubin, Indirect 0.3 mg/dL (0.1-0.7); Bilirubin, Total 0.5 mg/dL (0.1-1.0); Bun/Creatinine Ratio 14.4 (12.0-20.0); C-REACTIVE PROTEIN, EXT RANGE 1.61 mg/dL (0.000-0.300); Calcium, Blood 7.9 mg/dL (8.5-10.1); Creatinine, Blood 4.44 mg/dL (0.60-1.20); Globulin, Blood 5.1 g/dL (2.2-4.0); Magnesium, Blood 2.8 mg/dL (1.6-2.4); Phosphorus, Blood 6.8 mg/dL (2.5-4.9); Potassium, Blood 4.2 mmol/L (3.5-5.5); Total Protein, Blood 6.2 g/dL (6.4-8.2)
--- NOTE | 2021-01-18 06:40 | NUR ---
SHIFT SUMMARY: VICENTE CONTINUES TO IMPROVE EVERY DAY. IS HOLDING FULL CONFERSATIONS, FOLLOWING DIRECTIONS, MOVING HIS EXTREMITIES MORE. DECREASE IN GENERALIZED EDEMA. DID HAVE ONE EPISODE OF NAUSEA, HE RELATES IT TO NOT HAVING HIS CORRECT DOSE OF THE SUBOXENE, STATES HE GOES THROUGH BAD WITHDRAWLS IF HE DOES NOT HAVE IT. CALLED MD AND ASKED TO GIVE PROPER DOSE, HE REFERRED IT BACK TO THE DAY NURSE FOR TODAY. DID GIVE SOME REGLAN WHICH HE IS NOW ABLE TO HOLD DOWN FOOD. STILL VERY PALE. LUNG SOUNDS ARE DIMINISHED, VERY LITTLE SAIRA URINE OUTPUT NOTED. PAIN CONTROLED WITH MEDS. DID HAVE KLONOPIN FOR ANXIETY. VS WNL. AFEBRILE. HIS FATHER BRYAN SOSA WILL LIKE TO BE KEPT UP TO DATE ON HIS SON'S CARE, ALSO WILL LIKE DR. MCKEON TO CALL HIM. NAME BRYAN SOSA #[phone]. VICENTE IS DOING BETTER NOT CALLING OUT AND USING THE CALL LIGHT. BED ALARM IS ON.
--- NOTE | 2021-01-18 15:56 | NUR ---
SHIFT SUMMARY PT AAO TO SELF AND SITUATION, PLEASANTLY CONFUSED. REDIRECTABLE. COOPERATIVE TO CARE. PT ANXIOUS AT TIMES. NO C/O PAIN THIS SHIFT. NO C/O CP, SOB, OR N&V. PT REMAINS ON 3LPM O2 VIA NC. SATS >92%. PT HAD DIALYSIS THIS SHIFT. PERMACATH TO RUCW IN PLACE. BED AT LOWEST POSITION. CALL LIGHT WITHIN REACH.
--- NOTE | 2021-01-19 04:31 | NUR ---
SHIFT SUMMARY AOX3-SELF, PLACE, YR, MONTH @[facility], MORE CONFUSED THIS AM & STATES "I DONT KNOW WHERE I'M AT", AOX2. PT STATES HE IS CONFUSED THIS AM. VSS. REPORTS CHRONIC NEUROPATHY PAIN IN BLE & HANDS, TAKES SCHEDULED SUBOXONE FOR PAIN. SPO2 >90% ON 3L O2, DENIES SOB, LUNGS DIM c FINE CRACKLES IN BASES. DENIES N/V. HAS PITTING EDEMA T/O BODY, VERY EDEMATOUS & HAS TAUGHT SKIN. EDWARDS PATENT & DRAINING DARK COLA COLOR URINE. CALL LIGHT IN REACH. WCTM.
[2021-01-19 05:01] LABS: BASOPHILS ABSOLUTE AUTO 0.12 K/mm3 (0.00-0.23); BASOPHILS PERCENT AUTO 1 % (0-2); EOSINOPHILS ABSOLUTE AUTO 0.26 K/mm3 (0.00-0.68); EOSINOPHILS PERCENT AUTO 3 % (0-6); Hematocrit 30.9 % (37.0-53.0); Hemoglobin 10.1 g/dL (13.5-17.5); IMMATURE GRAN ABSOLUTE AUTO 0.06 K/mm3 (0.00-0.10); IMMATURE GRAN PERCENT AUTO 1 % (0-1); LYMPHOCYTES ABSOLUTE AUTO 2.56 K/mm3 (0.84-5.20); LYMPHOCYTES PERCENT AUTO 25 % (21-46); MONOCYTES PERCENT AUTO 16 % (4-13); Mean Corpuscular HGB 29.7 pg (26.0-34.0); Mean Corpuscular HGB Conc 32.7 g/dL (31.5-36.5); Mean Corpuscular Volume 91 fL (80-100); NEUTROPHILS ABSOLUTE AUTO 5.68 K/mm3 (1.96-9.15); NEUTROPHILS PERCENT AUTO 55 % (41-73); Platelet Count 80 K/mm3 (150-400); RDW Coefficient Variation 23.6 % (11.7-14.2); RDW Standard Deviation 78.5 fL (35.1-46.3); White Blood Cell Count 10.38 K/mm3 (4.00-11.30)
[2021-01-19 05:30] LABS: Albumin, Blood 1.2 g/dL (3.4-5.0); Anion Gap 7 mmol/L (6-16); Blood Urea Nitrogen 56 mg/dL (8-24); Bun/Creatinine Ratio 12.4 (12.0-20.0); CO2, Blood 28 mmol/L (21-32); Calcium, Blood 7.9 mg/dL (8.5-10.1); Chloride, Blood 94 mmol/L (98-108); Creatinine, Blood 4.52 mg/dL (0.60-1.20); Glomerular Filtration Rate 14 (60-); Glucose, Blood 85 mg/dL (70-99); Magnesium, Blood 2.4 mg/dL (1.6-2.4); Phosphorus, Blood 7.1 mg/dL (2.5-4.9); Potassium, Blood 4.5 mmol/L (3.5-5.5); Sodium, Blood 129 mmol/L (136-145)
--- NOTE | 2021-01-19 19:03 | NUR ---
PT HAS BEEN RESTING MOST OF THE SHIFT, QUIET AND NOT VOCAL USUAL. HAD DIALYSIS THIS SHIFT. VSS. CALL LIGHT WITHIN REACH.
[2021-01-20 04:59] LABS: EOSINOPHILS ABSOLUTE AUTO 0.14 K/mm3 (0.00-0.68); EOSINOPHILS PERCENT AUTO 1 % (0-6); Hematocrit 29.6 % (37.0-53.0); Hemoglobin 9.6 g/dL (13.5-17.5); IMMATURE GRAN ABSOLUTE AUTO 0.06 K/mm3 (0.00-0.10); IMMATURE GRAN PERCENT AUTO 1 % (0-1); LYMPHOCYTES ABSOLUTE AUTO 2.68 K/mm3 (0.84-5.20); LYMPHOCYTES PERCENT AUTO 24 % (21-46); MONOCYTES ABSOLUTE AUTO 1.48 K/mm3 (0.16-1.47); MONOCYTES PERCENT AUTO 14 % (4-13); Mean Corpuscular HGB Conc 32.4 g/dL (31.5-36.5); Mean Corpuscular Volume 93 fL (80-100); NEUTROPHILS ABSOLUTE AUTO 6.62 K/mm3 (1.96-9.15); NEUTROPHILS PERCENT AUTO 60 % (41-73); Platelet Count 94 K/mm3 (150-400); RDW Coefficient Variation 23.6 % (11.7-14.2); RDW Standard Deviation 79.4 fL (35.1-46.3)
[2021-01-20 05:06] LABS: Source, Urine Catheter
[2021-01-20 05:08] LABS: Appearance, Urine Turbid (Clear); Bilirubin, Urine Neg (Neg); Blood, Urine 5+ (Neg); Color, Urine Brown (P-Yellow); Glucose Qualitative, Urine Neg (Neg); Ketones, Urine 1+ (Neg); Leukocyte Esterase, Urine 2+ (Neg); Nitrite, Urine Neg (Neg); Protein, Urine 4+ (Neg); Urobilinogen, Urine NORM (Normal)
[2021-01-20 05:14] LABS: Albumin, Blood 1.1 g/dL (3.4-5.0); Albumin/Globulin Ratio 0.2 (0.8-1.8); Bilirubin, Direct 0.2 mg/dL (0.0-0.3); Bilirubin, Indirect 0.3 mg/dL (0.1-0.7); Bilirubin, Total 0.5 mg/dL (0.1-1.0); Bun/Creatinine Ratio 9.2 (12.0-20.0); Calcium, Blood 8.4 mg/dL (8.5-10.1); Creatinine, Blood 4.45 mg/dL (0.60-1.20); Globulin, Blood 5.6 g/dL (2.2-4.0); Magnesium, Blood 2.5 mg/dL (1.6-2.4); Phosphorus, Blood 6.8 mg/dL (2.5-4.9); Potassium, Blood 4.6 mmol/L (3.5-5.5); Total Protein, Blood 6.7 g/dL (6.4-8.2)
[2021-01-20 05:17] LABS: BASOPHILS ABSOLUTE AUTO 0.02 K/mm3 (0.00-0.23); BASOPHILS PERCENT AUTO 0 % (0-2)
[2021-01-20 05:27] LABS: Red Blood Cells, Urine TNTC /hpf (0-2); White Blood Cells, Urine 50-100 /hpf (0-5)
[2021-01-20 05:28] LABS: Bacteria Many /hpf; Squamous Epithelial Cells Not Seen /hpf (Few)
--- NOTE | 2021-01-20 05:39 | NUR ---
SHIFT SUMMARY PT MORE CONFUSED T/O TONIGHT COMPARED TO PREVIOUS NIGHT. AOX1-SELF. HAS NONSENSICAL REPETITIVE RESPONSES TO QUESTIONS. UNABLE TO ANSWER APPROPRIATE. LETHARGIC. MOANS. INFORMED DR MEHTA & HE ORDERED AMMONIA TO BE CHECKED, @77. HELD ALL HS MED EXCEPT LACTALOSE, WHICH I SPOON FED TO PT @90 DEGREES. VSS. SPO2 >90% ON 2L O2. LUNGS DIM c CRACKLES IN BASES. PT HAS +2 EDEMA T/O BODY, VERY TAUGHT SKIN. RECIEVED DIALYSIS YESTERDAY. HAD REDISH BROWN, BURGANDY COLOR BM THIS MORNING, INFORMED DR HERNANDEZ & SHE REPORTED TO KEEP MONITORING. PT VERY WEAK & UNABLE TO LIFT EXTEMITIES ON OWN. CALL LIGHT & BED ALARM IN PLACE. WCTM.
[2021-01-20 11:59] LABS: SARS-Cov-2 (COVID-19) PCR, MMC NEGATIVE (NEGATIVE)
--- NOTE | 2021-01-20 14:14 | NUR ---
Pt.lying in bed and his nurse in the room attenmnding to his needs,pt. is doing fine ,prayed for him
--- NOTE | 2021-01-21 04:50 | NUR ---
SHIFT SUMMARY ALERT. AWAKE. CONSTANTLY TALKING. NONSENSICAL REPETITIVE WORD SALAD SPEECH. UNABLE TO FOLLOW DIRECTIONS OR RESPOND APPROPRIATE TO QUESTIONS. VERY CONFUSED. LS CRACKLES IN BASES. SPO2 @88% THIS AM ON 2L O2, INCREASED O2 TO 5L VIA NC & SPO2 @91%. REST OF VITALS STABLE. NO S/SX PAIN. +2 EDEMA T/O BODY. EDWADRS DRAINING VERY LITTLE BROWNISH RED COLOR URINE. REPOSITIONED PRN. BED ALARM IN PLACE.
[2021-01-21 05:10] LABS: BASOPHILS ABSOLUTE AUTO 0.08 K/mm3 (0.00-0.23); BASOPHILS PERCENT AUTO 0 % (0-2); Hematocrit 26.8 % (37.0-53.0); Hemoglobin 8.8 g/dL (13.5-17.5); LYMPHOCYTES ABSOLUTE AUTO 1.05 K/mm3 (0.84-5.20); LYMPHOCYTES PERCENT AUTO 3 % (21-46); MONOCYTES ABSOLUTE AUTO 0.72 K/mm3 (0.16-1.47); MONOCYTES PERCENT AUTO 2 % (4-13); Mean Corpuscular HGB 30.1 pg (26.0-34.0); Mean Corpuscular HGB Conc 32.8 g/dL (31.5-36.5); Mean Corpuscular Volume 92 fL (80-100); Platelet Count 99 K/mm3 (150-400); RDW Coefficient Variation 23.7 % (11.7-14.2); RDW Standard Deviation 78.9 fL (35.1-46.3); Red Blood Cell Count 2.92 M/mm3 (4.30-5.90); White Blood Cell Count 31.24 K/mm3 (4.00-11.30)
[2021-01-21 05:26] LABS: Albumin, Blood 1.1 g/dL (3.4-5.0); Albumin/Globulin Ratio 0.2 (0.8-1.8); Bilirubin, Direct 0.2 mg/dL (0.0-0.3); Bilirubin, Indirect 0.3 mg/dL (0.1-0.7); Bilirubin, Total 0.5 mg/dL (0.1-1.0); Bun/Creatinine Ratio 9.8 (12.0-20.0); C-REACTIVE PROTEIN, EXT RANGE 5.2 mg/dL (0.000-0.300); Calcium, Blood 8.2 mg/dL (8.5-10.1); Creatinine, Blood 6.22 mg/dL (0.60-1.20); Globulin, Blood 5.2 g/dL (2.2-4.0); Magnesium, Blood 2.7 mg/dL (1.6-2.4); Phosphorus, Blood 6.8 mg/dL (2.5-4.9); Potassium, Blood 5.3 mmol/L (3.5-5.5); Total Protein, Blood 6.3 g/dL (6.4-8.2)
[2021-01-21 05:46] LABS: EOSINOPHILS PERCENT AUTO 0 % (0-6); IMMATURE GRAN ABSOLUTE AUTO 0.25 K/mm3 (0.00-0.10); IMMATURE GRAN PERCENT AUTO 1 % (0-1); NEUTROPHILS ABSOLUTE AUTO 29.14 K/mm3 (1.96-9.15); NEUTROPHILS PERCENT AUTO 93 % (41-73)
[2021-01-21 11:21] LABS: SARS-Cov-2 (COVID-19) PCR, MMC NEGATIVE (NEGATIVE)
[2021-01-21 13:28] LABS: Vancomycin, Random 15.7 ug/mL
--- NOTE | 2021-01-21 14:43 | NUR ---
Pt. is lying in bed and on a test in his room prayed and encouraged pt.
--- NOTE | 2021-01-21 15:00 | NUR ---
Echocardiogram completed.
--- NOTE | 2021-01-21 18:33 | NUR ---
PATIENT VERY CONFUSED AND ALMOST MANIC THIS SHIFT. HAS NOT SLEPT SINCE YESTERDAY MORNING. CONTINUES TO REPEAT THE SAME NONSENSICAL SENTENCE THROUGHOUT THE DAY AND HAS BEEN UNABLE TO REST. TRAZADONE AND KLONIPIN GIVEN WITH LITTLE RELIEF. WENT DOWN FOR DIALYSIS TODAY. GIVEN NS BOLUS FOR CRITICAL LACTIC ACID AND NOW IS RUNNING NS @ 200ML/HR X2 BAGS. STARTED ON DIFFLUCAN ALONG WITH ZOSYN AND VANCO. COLLECTING 24 HOUR URINE, VERY LITTLE U/O AND URINE IS COLA COLORED. COVID NEGATIVE AGAIN TODAY. FALL PRECAUTIONS IN PLACE. SPOKE WITH PATIENT FATHER AND UPDATED HIM ON PATIENTS CHANGE IN CONDITION.
--- NOTE | 2021-01-22 06:23 | NUR ---
SHIFT SUMMARY ALERT. AWAKE MOST OF NIGHT, FINALLY FELL ASLEEP ROUGHLY 30MIN AGO. CONFUSED & NONSENSICAL. UNABLE TO RESPOND OR FOLLOW DIRECTIONS CORRECTLY. NO S/SX PAIN, SOB OR N/V. VSS. ON 5L O2 VIA OXIMIZER. EDWARDS EDENILSON c BROWN DRAINAGE-24HR URINE IN PROCESS. CALL LIGHT & BED ALARM IN PLACE.
[2021-01-22 10:03] LABS: BASOPHILS PERCENT AUTO 1 % (0-2); EOSINOPHILS ABSOLUTE AUTO 0.44 K/mm3 (0.00-0.68); EOSINOPHILS PERCENT AUTO 3 % (0-6); Hematocrit 26.9 % (37.0-53.0); Hemoglobin 8.6 g/dL (13.5-17.5); IMMATURE GRAN ABSOLUTE AUTO 0.04 K/mm3 (0.00-0.10); IMMATURE GRAN PERCENT AUTO 0 % (0-1); LYMPHOCYTES ABSOLUTE AUTO 1.66 K/mm3 (0.84-5.20); LYMPHOCYTES PERCENT AUTO 12 % (21-46); MONOCYTES ABSOLUTE AUTO 0.65 K/mm3 (0.16-1.47); MONOCYTES PERCENT AUTO 5 % (4-13); Mean Corpuscular HGB 29.9 pg (26.0-34.0); Mean Corpuscular Volume 93 fL (80-100); NEUTROPHILS ABSOLUTE AUTO 10.73 K/mm3 (1.96-9.15); NEUTROPHILS PERCENT AUTO 79 % (41-73); Platelet Count 93 K/mm3 (150-400); RDW Coefficient Variation 23.7 % (11.7-14.2); RDW Standard Deviation 83.1 fL (35.1-46.3); Red Blood Cell Count 2.88 M/mm3 (4.30-5.90); White Blood Cell Count 13.62 K/mm3 (4.00-11.30)
[2021-01-22 10:18] LABS: Vancomycin, Random 26.1 ug/mL
[2021-01-22 10:24] LABS: Albumin, Blood 1.2 g/dL (3.4-5.0); Albumin/Globulin Ratio 0.2 (0.8-1.8); Bilirubin, Direct 0.4 mg/dL (0.0-0.3); Bilirubin, Indirect 0.1 mg/dL (0.1-0.7); Bilirubin, Total 0.5 mg/dL (0.1-1.0); Bun/Creatinine Ratio 8.8 (12.0-20.0); C-REACTIVE PROTEIN, EXT RANGE 5.39 mg/dL (0.000-0.300); Calcium, Blood 8.3 mg/dL (8.5-10.1); Creatinine, Blood 5.81 mg/dL (0.60-1.20); Globulin, Blood 5.3 g/dL (2.2-4.0); Magnesium, Blood 2.5 mg/dL (1.6-2.4); Phosphorus, Blood 6.3 mg/dL (2.5-4.9); Potassium, Blood 4.3 mmol/L (3.5-5.5); Total Protein, Blood 6.5 g/dL (6.4-8.2)
[2021-01-22 15:16] LABS: Protein, Urine Quantitative 1947.7 mg/dL (0.0-11.9)
--- NOTE | 2021-01-22 18:02 | NUR ---
SHIFT SUMMARY PATIENT UP IN BED FOR MOST OF DAY. WOKE UP FROM 2 HR NAP THIS MORNING COHERENT, NOT REMEMBERING PREVIOUS DAYS EVENTS. ROUGHLY 2 HRS AFTER START OF SHIFT PT RETURNED TO CONFUSED/ AGITATED STATE. LINES/IVS REINFORCED TO PREVENT FROM PULLING. MEDICATED PER JUL. FINALLY FELL ASLEEP AROUND 15:30 AND HAS REMAINED ASLEEP UNTIL END OF SHIFT. CALL LIGHT IN REACH AND CONTINUE TO MONITOR.
--- NOTE | 2021-01-22 23:20 | NUR ---
PHYSICIAN CONTACT PT YELLING OUT, PULLED OUT PERMACATH APPROX 1INCH. RESERVATIONS SPECIALIST PROVIDER NOTIFIED, NEW ORDERS FOR WRIST RESTRAINTS. PER RESERVATIONS SPECIALIST SURGEON, OK TO PLACE DRESSING UNTIL ASSESSED IN AM. NO BLEEDING NOTED, DRESSING PLACED. WILL CONTINUE TO MONITOR.
--- NOTE | 2021-01-23 04:34 | NUR ---
SHIFT SUMMARY A/O TO SELF ONLY. VISUAL/AUDITORY HALLUCINATIONS WITH NONSENSICAL SPEECH. PT PULLING AT PERMCATH THIS SHIFT, CURRENTLY IN BILATERAL WRIST RESTRAINTS TO PROTECT LINES. PLEASE SEE PREVIOUS NOTE. BED IN LOWEST POSITION WITH CALL LIGHT IN REACH. WILL CONTINUE TO MONITOR AND REPORT TO ONCOMING RN.
--- NOTE | 2021-01-23 09:37 | NUR ---
DIALYSIS PT ARRIVED FROM MEDICAL FLOOR ON A BED. HE IS RESTRAINED AND FIGHTING THE RESTRAINTS. HE IS YELLING INCOHERENT SENTENCES. THE FIRST TX I DID WITH THE PT HE WAS CONFUSED, BUT YOU COULD REDIRECT HIM. HE WOULD MAKE SENSE. NOW HE IS JUST YELLING. WE WERE TOLD BY THE FLOOR RN THAT HE PULLED THE DIALYSIS CATH PARTIALLY OUT. WE ATTEMPTED TO ASPIRATE IT. UNABLE. IT IS NOT SAFE TO USE. SENDING BACK TO ROOM
[2021-01-23 13:05] LABS: Vancomycin, Random 26.6 ug/mL
--- NOTE | 2021-01-23 14:05 | NUR ---
Spoke with Alexandro this afternoon re: advanced care planning. Alexandro has spoken with his grandfather as well as other a couple of his step siblings. Alexandro reports none of his step siblings have had any relationship with their dad. Explained Sagar's current condition. Alexandro states that no one has wanted to make a decision, so he had agreed to do it. He states that he doesn't want his father to suffer, but he would like to give him a chance to recover. He is willing to make him a DNR but would like the HD catheter replaced and to continue with HD and current treatments at this time. He is willing to reevaluate the goals of care and plan of care going forward as Sagar's condition changes. Alexandro states that [place] outside of [place] area and that he doesn't always have good cell service. He would like to be kept informed of any changes [phone] (Alexandro). Alexandro states that his grandfather Yan should remain the main contact as he is more available by phone. Yan (Sagar's dad) [phone]. Discussed options for care going forward of continuing with current plan of care, code status, and the possibility of considering comfort care if pt further declines. Alexandro is pleasant and thankful for the information. Dr. Zaman, bedside nurse and , Amanda updated on current POC. Orders placed for DNR and consult for Dr. Henriquez to replace the HD catheter. Spoke with pt's dad Yan and gave him an update on the conversation with Alexandro and the current plan of care going forward. PC to remain available.
--- NOTE | 2021-01-23 19:04 | NUR ---
SHIFT SUMMARY PT A/O TO SELF ONLY AND MUMBLING/YELLING OUT INCOHERENTLY FOR THE MAJORITY OF THE SHIFT. PT DOES NOT RESPOND TO ANY STIMULI. PULLED PERMACATH LAST NIGHT AND IN RESTRAINTS. PERMACATH DEEMED NOT USUABLE FOR DIALYSIS. FAMILY CONSULTED AND PT MADE DNR AND PERMACATH FIXED. PT MAY HAVE DIALYSIS TOMORROW. VSS. WILL REPORT TO RENEA FRANCO.
[2021-01-23 19:05] LABS: Adenovirus Not Detected (NOT DETECT); Bordetella pertussis Not Detected (NOT DETECT); Chlamydophila pneumoniae Not Detected (NOT DETECT); Coronavirus 229E Not Detected (NOT DETECT); Coronavirus HKU1 Not Detected (NOT DETECT); Coronavirus NL63 Not Detected (NOT DETECT); Coronavirus OC43 Not Detected (NOT DETECT); Human Metapneumovirus Not Detected (NOT DETECT); Human Rhinovirus/Enterovirus Not Detected (NOT DETECT); Influenza A/2009-H1 Not Detected (NOT DETECT); Influenza A/H1 Not Detected (NOT DETECT); Influenza A/H3 Not Detected (NOT DETECT); Influenza B Not Detected (NOT DETECT); Mycoplasma pneumoniae Not Detected (NOT DETECT); Parainfluenza Virus 1 Not Detected (NOT DETECT); Parainfluenza Virus 2 Not Detected (NOT DETECT); Parainfluenza Virus 3 Not Detected (NOT DETECT); Parainfluenza Virus 4 Not Detected (NOT DETECT); Respiratory Syncytial Virus Not Detected (NOT DETECT); SARS-Cov-2 (COVID-19), BioFire Not Detected (NOT DETECT)
[2021-01-24 09:10] LABS: ANTIGLOMERULAR BM AB 8 units (0-20)
[2021-01-24 09:48] LABS: C-REACTIVE PROTEIN, EXT RANGE 4.92 mg/dL (0.000-0.300); Magnesium, Blood 2.9 mg/dL (1.6-2.4)
[2021-01-24 09:52] LABS: International Normalized Ratio 1.2; Prothrombin Time Results 12.8 Sec (9.7-11.5)
[2021-01-24 09:54] LABS: Albumin, Blood 1.6 g/dL (3.4-5.0); Albumin/Globulin Ratio 0.3 (0.8-1.8); Bilirubin, Direct 0.3 mg/dL (0.0-0.3); Bilirubin, Indirect 0.5 mg/dL (0.1-0.7); Bilirubin, Total 0.8 mg/dL (0.1-1.0); Calcium, Blood 8.1 mg/dL (8.5-10.1); Globulin, Blood 5.3 g/dL (2.2-4.0); Total Protein, Blood 6.9 g/dL (6.4-8.2); Troponin I 0.022 ng/mL (0.000-0.040)
[2021-01-24 10:02] LABS: BASOPHILS ABSOLUTE AUTO 0.08 K/mm3 (0.00-0.23); BASOPHILS PERCENT AUTO 1 % (0-2); EOSINOPHILS ABSOLUTE AUTO 0.06 K/mm3 (0.00-0.68); EOSINOPHILS PERCENT AUTO 0 % (0-6); Hematocrit 27.1 % (37.0-53.0); Hemoglobin 8.5 g/dL (13.5-17.5); IMMATURE GRAN ABSOLUTE AUTO 0.07 K/mm3 (0.00-0.10); IMMATURE GRAN PERCENT AUTO 1 % (0-1); LYMPHOCYTES ABSOLUTE AUTO 1.28 K/mm3 (0.84-5.20); LYMPHOCYTES PERCENT AUTO 10 % (21-46); MONOCYTES ABSOLUTE AUTO 0.82 K/mm3 (0.16-1.47); MONOCYTES PERCENT AUTO 6 % (4-13); Mean Corpuscular HGB 29.3 pg (26.0-34.0); Mean Corpuscular HGB Conc 31.4 g/dL (31.5-36.5); Mean Corpuscular Volume 93 fL (80-100); NEUTROPHILS ABSOLUTE AUTO 11.04 K/mm3 (1.96-9.15); NEUTROPHILS PERCENT AUTO 83 % (41-73); Platelet Count 108 K/mm3 (150-400); RDW Coefficient Variation 22.1 % (11.7-14.2); RDW Standard Deviation 75.7 fL (35.1-46.3); White Blood Cell Count 13.35 K/mm3 (4.00-11.30)
[2021-01-24 10:17] LABS: Mean Platelet Volume 10.9 fL (9.1-12.4)
[2021-01-24 10:30] LABS: Bun/Creatinine Ratio 9.2 (12.0-20.0); Creatinine, Blood 9.03 mg/dL (0.60-1.20); Phosphorus, Blood 8.6 mg/dL (2.5-4.9); Potassium, Blood 6.1 mmol/L (3.5-5.5)
[2021-01-24 12:01] LABS: A/G RATIO 0.4 (0.7-1.7); ALBUMIN 1.6 g/dL (2.9-4.4); ALPHA-1-GLOBULIN 0.2 g/dL (0.0-0.4); ALPHA-2-GLOBULIN 0.6 g/dL (0.4-1.0); BETA GLOBULIN 1.3 g/dL (0.7-1.3); GAMMA GLOBULIN 2.3 g/dL (0.4-1.8); GLOBULIN, TOTAL 4.5 g/dL (2.2-3.9); IMMUNOGLOBULIN A, QN, SERUM 878 mg/dL (90-386); IMMUNOGLOBULIN G, QN, SERUM 1905 mg/dL (603-1613); IMMUNOGLOBULIN M, QN, SERUM 178 mg/dL (20-172); M-SPIKE Not Observed g/dL (Not Observed); PROTEIN, TOTAL, SERUM 6.1 g/dL (6.0-8.5)
[2021-01-24 13:08] LABS: ANA DIRECT Negative (Negative); ANTIMYELOPEROXIDASE (MPO) ABS <9.0 U/mL (0.0-9.0); ANTIPROTEINASE 3 (PR-3) ABS <3.5 U/mL (0.0-3.5); ATYPICAL PANCA <1:20 titer (Neg:<1:20); CYTOPLASMIC (C-ANCA) <1:20 titer (Neg:<1:20); PERINUCLEAR (P-ANCA) <1:20 titer (Neg:<1:20)
[2021-01-24 15:08] LABS: M-SPIKE, % Not Observed % (Not Observed)
--- NOTE | 2021-01-24 19:11 | NUR ---
SHIFT SUMMARY NO ACUTE CHANGES THIS SHIFT. PT CONTINUES TO HAVE REPEATED NONSENSICAL SPEECH AND BE ALERT TO SELF ONLY. WENT IN FOR DIALYSIS TODAY. PT REMAINS IN RESTRAINTS DUE TO PULLING HIS PERMACATH AND EDWARDS. VSS. WILL REPORT TO ONCOMING RN.
--- NOTE | 2021-01-24 20:34 | NUR ---
long conversation today with pt father he is very distraught and fears his sons demise. review whe t the infectious disease doctor notes and his prognosis. He has alreadly lost two of his children and struggling. Will continue to try to help him with accepting how sick his son is. Will review medications with physician for his delirium.
[2021-01-25 07:07] LABS: Hematocrit 24.7 % (37.0-53.0); Hemoglobin 7.7 g/dL (13.5-17.5); Mean Corpuscular HGB 29.5 pg (26.0-34.0); Mean Corpuscular HGB Conc 31.2 g/dL (31.5-36.5); Mean Corpuscular Volume 95 fL (80-100); Mean Platelet Volume 10.8 fL (9.1-12.4); NRBC ABSOLUTE 0.02 K/mm3 (0.00-0.02); NRBC Auto 0.1 /100 WBC (0.0-0.2); Platelet Count 89 K/mm3 (150-400); RDW Coefficient Variation 22.4 % (11.7-14.2); RDW Standard Deviation 76.7 fL (35.1-46.3); Red Blood Cell Count 2.61 M/mm3 (4.30-5.90); White Blood Cell Count 13.81 K/mm3 (4.00-11.30)
[2021-01-25 07:34] LABS: Albumin, Blood 1.4 g/dL (3.4-5.0); Anion Gap 8 mmol/L (6-16); Blood Urea Nitrogen 67 mg/dL (8-24); Bun/Creatinine Ratio 8.6 (12.0-20.0); CO2, Blood 27 mmol/L (21-32); Calcium, Blood 7.5 mg/dL (8.5-10.1); Chloride, Blood 103 mmol/L (98-108); Creatinine, Blood 7.76 mg/dL (0.60-1.20); Glomerular Filtration Rate 7 (60-); Glucose, Blood 77 mg/dL (70-99); Magnesium, Blood 2.5 mg/dL (1.6-2.4); Potassium, Blood 5.9 mmol/L (3.5-5.5); Sodium, Blood 138 mmol/L (136-145)
[2021-01-25 07:42] LABS: Phosphorus, Blood 8.2 mg/dL (2.5-4.9)
[2021-01-25 07:57] LABS: BASOPHILS ABSOLUTE MAN 0.13 K/mm3 (0.00-0.23); BASOPHILS PERCENT MAN 1 % (0-2); EOSINOPHILS PERCENT MAN 0 % (0-6); LYMPHOCYTES ABSOLUTE MAN 1.38 K/mm3 (0.84-5.20); LYMPHOCYTES PERCENT MAN 10 % (21-46); MONOCYTES ABSOLUTE MAN 0.82 K/mm3 (0.16-1.47); MONOCYTES PERCENT MAN 6 % (4-13); NEUTROPHILS ABSOLUTE MAN 11.46 K/mm3 (1.96-9.15); SEG NEUTROPHILS PERCENT MAN 83 % (41-73); TOTAL CELLS COUNTED 100
--- NOTE | 2021-01-25 14:25 | NUR ---
pt more alert at times and less aggitated.
--- NOTE | 2021-01-25 19:24 | NUR ---
SHIFT SUMMARY PT SEEMS TO BE DOING MUCH BETTER THIS SHIFT. HE IS MUCH MORE ALERT AND ORIENTED AND WAS ABLE TO HOLD A CONVERSATION TODAY. RECEIVED DIALYSIS. EDWARDS PATENT AND DRAINING MUD-LIKE URINE. VSS.
--- NOTE | 2021-01-26 02:31 | NUR ---
ROOF TRUSS DETAILER SUMMARY PT IS A/O X0-1 WITH NON-SENSICAL SPEECH. PLASTER DIE MAKER INITIATED OVERNIGHT, PLEASE SEE PLASTER DIE MAKER DOCUMENTATION. PT CONTINUES TO BE ON NC WITH NRB BOTH SATTING AT 14L CURRENTLY. PT SATS BETWEEN LOW TO HIGH 90'S. PT IS NOT TOLERATING WELL, PT KEEPS SAYING HE DOES NOT WANT TO HAVE THE NRB. PT APPEARS PALE OVERALL. CALL LIGHT WITHIN REACH, BED ALARM ON, WILL CONTINUE TO MONITOR.
[2021-01-26 07:02] LABS: BASOPHILS ABSOLUTE AUTO 0.02 K/mm3 (0.00-0.23); BASOPHILS PERCENT AUTO 0 % (0-2); EOSINOPHILS ABSOLUTE AUTO 0.03 K/mm3 (0.00-0.68); EOSINOPHILS PERCENT AUTO 0 % (0-6); Hematocrit 25.6 % (37.0-53.0); IMMATURE GRAN ABSOLUTE AUTO 0.07 K/mm3 (0.00-0.10); IMMATURE GRAN PERCENT AUTO 1 % (0-1); LYMPHOCYTES ABSOLUTE AUTO 1.57 K/mm3 (0.84-5.20); LYMPHOCYTES PERCENT AUTO 13 % (21-46); MONOCYTES PERCENT AUTO 7 % (4-13); Mean Corpuscular HGB Conc 31.3 g/dL (31.5-36.5); Mean Corpuscular Volume 96 fL (80-100); Mean Platelet Volume 10.2 fL (9.1-12.4); NEUTROPHILS ABSOLUTE AUTO 9.21 K/mm3 (1.96-9.15); NEUTROPHILS PERCENT AUTO 79 % (41-73); Platelet Count 94 K/mm3 (150-400); RDW Coefficient Variation 22.5 % (11.7-14.2); RDW Standard Deviation 78.3 fL (35.1-46.3); Red Blood Cell Count 2.67 M/mm3 (4.30-5.90)
[2021-01-26 07:28] LABS: Albumin, Blood 1.5 g/dL (3.4-5.0); Albumin/Globulin Ratio 0.3 (0.8-1.8); Bilirubin, Direct 0.3 mg/dL (0.0-0.3); Bilirubin, Indirect 0.3 mg/dL (0.1-0.7); Bilirubin, Total 0.6 mg/dL (0.1-1.0); Bun/Creatinine Ratio 8.8 (12.0-20.0); C-REACTIVE PROTEIN, EXT RANGE 12.1 mg/dL (0.000-0.300); Calcium, Blood 7.8 mg/dL (8.5-10.1); Creatinine, Blood 6.51 mg/dL (0.60-1.20); Globulin, Blood 5.1 g/dL (2.2-4.0); Magnesium, Blood 2.7 mg/dL (1.6-2.4); Phosphorus, Blood 7.6 mg/dL (2.5-4.9); Potassium, Blood 4.9 mmol/L (3.5-5.5); Thyroid Stimulating Hormone 3.12 uIU/mL (0.360-4.800); Total Protein, Blood 6.6 g/dL (6.4-8.2)
--- NOTE | 2021-01-26 18:02 | NUR ---
SHIFT SUMMARY PATIENT WAS VERY AGGITATED THIS MORNING. PATIENT YELLING AND CURSING AT STAFF. PATIENT MANAGED TO PULL OFF NRB AND N/C. PATIENT DESATURATED TO 59%. PATIENT TRIED TO BITE STAFF WHEN ATTEMPTING TO PUT NRB AND N/C BACK ON. TIGHTENED SOFT RESTRAINTS AND WAS ABLE TO GET OXYGEN BACK ON. PATIENT RECOVERED SLOWLY. NRB AND N/C AT 14L. PATIENT FELL ASLEEP SHORTLY AFTER. NEXT TIME PATIENT WOKE UP, HE STARTED YELLING AND CURSING AT STAFF AGAIN. PATIENT PARANOID AND NONSENSICAL. PATIENT NOT EATING AND DRINKING WELL.
--- NOTE | 2021-01-27 05:32 | NUR ---
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 PT OCCASINALLY YELLS, CUSSED AND ATTEMPTED TO KICK STAFF. CONTINUES TO BE ON 15L VIA NRB PLUS 15L NC SATTING IN THE LOW TO MID 90'S WHILE CALM. WHEN PT BECOMES AGITATED HE DESATS INTO THE LOW 80'S. PT REFUSED VITALS, AND BECOMES AGRESSIVE WHEN STAFF PROVIDES ANY CARE. EDWARDS PATENT AND DRAINING VERY MINMAL COLA COLORED URINE. STAFF WAS ABLE TO OBTAIN SATS WHILE PT WAS CALM. CALL LIGHT WITHIN REACH, BED ALARM ON. WILL CONTINUE TO MONITOR.
[2021-01-27 09:43] LABS: BASOPHILS ABSOLUTE AUTO 0.03 K/mm3 (0.00-0.23); BASOPHILS PERCENT AUTO 0 % (0-2); EOSINOPHILS ABSOLUTE AUTO 0.64 K/mm3 (0.00-0.68); EOSINOPHILS PERCENT AUTO 7 % (0-6); Hematocrit 26.2 % (37.0-53.0); Hemoglobin 8.1 g/dL (13.5-17.5); IMMATURE GRAN ABSOLUTE AUTO 0.07 K/mm3 (0.00-0.10); IMMATURE GRAN PERCENT AUTO 1 % (0-1); LYMPHOCYTES ABSOLUTE AUTO 1.48 K/mm3 (0.84-5.20); LYMPHOCYTES PERCENT AUTO 16 % (21-46); MONOCYTES ABSOLUTE AUTO 0.47 K/mm3 (0.16-1.47); MONOCYTES PERCENT AUTO 5 % (4-13); Mean Corpuscular HGB 29.7 pg (26.0-34.0); Mean Corpuscular HGB Conc 30.9 g/dL (31.5-36.5); Mean Corpuscular Volume 96 fL (80-100); Mean Platelet Volume 10.7 fL (9.1-12.4); NEUTROPHILS ABSOLUTE AUTO 6.68 K/mm3 (1.96-9.15); NEUTROPHILS PERCENT AUTO 71 % (41-73); Platelet Count 88 K/mm3 (150-400); RDW Coefficient Variation 22.3 % (11.7-14.2); RDW Standard Deviation 76.9 fL (35.1-46.3); Red Blood Cell Count 2.73 M/mm3 (4.30-5.90); White Blood Cell Count 9.37 K/mm3 (4.00-11.30)
[2021-01-27 09:57] LABS: Albumin, Blood 1.5 g/dL (3.4-5.0); Anion Gap 7 mmol/L (6-16); Blood Urea Nitrogen 65 mg/dL (8-24); Bun/Creatinine Ratio 9.6 (12.0-20.0); CO2, Blood 29 mmol/L (21-32); Calcium, Blood 7.4 mg/dL (8.5-10.1); Chloride, Blood 102 mmol/L (98-108); Creatinine, Blood 6.75 mg/dL (0.60-1.20); Glomerular Filtration Rate 9 (60-); Glucose, Blood 91 mg/dL (70-99); Magnesium, Blood 3.2 mg/dL (1.6-2.4); Phosphorus, Blood 6.5 mg/dL (2.5-4.9); Potassium, Blood 4.2 mmol/L (3.5-5.5); Sodium, Blood 138 mmol/L (136-145)
--- NOTE | 2021-01-27 11:12 | NUR ---
Spoke to pt's father Yan by phone today to provide update on pt's condition. Pt is currently having dialysis. His bedside nurse reports he is now needing 15L oxygen to maintain adequate oxygen saturation. I did relay this information to Yan, who stated he [place] people [place] for [place]. The discussion turned to restorationism, and Yan states he believes everyone's days are numbered, and only God knows how many each of us gets. Yan states people from the hospital have mentioned comfort care as an option if pt's condition worsens. He states he needs to hear from a doctor about "all this", and requests one call him today. I tell him I will pass the message along to Dr. Reynaga, who is currently working with patient.
--- NOTE | 2021-01-27 14:45 | NUR ---
Met pt. in bed resting he reports doing finr emcoursged pt. snd offered prayers.
[2021-01-27 15:05] LABS: SARS-Cov-2 (COVID-19) PCR, MMC NEGATIVE (NEGATIVE)
--- NOTE | 2021-01-27 20:01 | NUR ---
PT has bilat wrist restraints to prevent removal of medical equipment. He has 4 side rails up to aide in positioning. Yelling grunting repeatedly then will answer questions like nothing is wrong . Repositioned & he yells with that. DNR status had HD today per report. 15 lNRB & 13 l NC to get sats to 90%. Apparently unable to wean NC per RN Yenny report.
--- NOTE | 2021-01-27 20:07 | NUR ---
10 MG IM zyprexa given lt thigh with mild helpful effect on aggitation. Baseline takes multiple meds for PSYCH & pain issues. Unable to swallow due to hypoxia.
--- NOTE | 2021-01-27 20:35 | NUR ---
PT continues aggitated grunting yelling slightly less loud after 10 mg IM zyprexa but still very agitiated. DR Tank Tucker updated 1 x order for 1 mg IV ativan given for aggitation. DR Tucker also renews restaint bilat wrist & 4 side rails order.
--- NOTE | 2021-01-28 06:29 | NUR ---
PT at 524 .2nd RN Aurial pronounced. Sister Shruti in to see PT & take personal belongings. Father notified and Message left for Son Alexandro. [facility] directors called & will notify family. Father said no prior arrangements were made.
--- NOTE | 2021-01-28 13:51 | NUR ---
Pt is improved and discharged wished pt all the best while at home.
== END 2021-01-28 05:25 | DRG 871 ==
LOC: ER 16:58 → ERHOLD 21:14 → MEDS 21:14 → ICUE 01-07 12:10 → PCU 01-08 21:14 → MEDS 01-13 16:19
PROVIDERS: Family Medicine; Internal Medicine; Internal Medicine Infectious Disease; Internal Medicine Nephrology; Student in an Organized Health Care Education/Training Program; ADMIT Internal Medicine
PROC: 0JH63XZ Insertion of Tunneled Vascular Access Device into Chest Subcutaneous Tissue and Fascia, Percutaneous Approach (ICD-10-PCS; principal; 2021-01-14)
PROC: 02HV33Z Insertion of Infusion Device into Superior Vena Cava, Percutaneous Approach (ICD-10-PCS; 2021-01-14)
PROC: 5A1D70Z Performance of Urinary Filtration, Intermittent, Less than 6 Hours Per Day (ICD-10-PCS; 2021-01-14)
DX: A41.81 Sepsis due to Enterococcus (principal); J96.01 Acute respiratory failure with hypoxia; J18.9 Pneumonia, unspecified organism; G92 Toxic encephalopathy; N18.6 End stage renal disease; N39.0 Urinary tract infection, site not specified; Z66 Do not resuscitate; R18.8 Other ascites; N17.9 Acute kidney failure, unspecified; E87.2 Acidosis; E87.1 Hypo-osmolality and hyponatremia; E72.20 Disorder of urea cycle metabolism, unspecified; I12.0 Hypertensive chronic kidney disease with stage 5 chronic kidney disease or end stage renal disease; B18.1 Chronic viral hepatitis B without delta-agent; K76.6 Portal hypertension; F11.20 Opioid dependence, uncomplicated; J81.1 Chronic pulmonary edema; Z20.822 Contact with and (suspected) exposure to COVID-19; K74.60 Unspecified cirrhosis of liver; E87.5 Hyperkalemia; E86.0 Dehydration; F15.90 Other stimulant use, unspecified, uncomplicated; E87.70 Fluid overload, unspecified; E78.5 Hyperlipidemia, unspecified; F20.9 Schizophrenia, unspecified; F43.10 Post-traumatic stress disorder, unspecified; I87.8 Other specified disorders of veins; R65.20 Severe sepsis without septic shock; D69.6 Thrombocytopenia, unspecified; F90.9 Attention-deficit hyperactivity disorder, unspecified type; I48.91 Unspecified atrial fibrillation; E88.09 Other disorders of plasma-protein metabolism, not elsewhere classified; D63.1 Anemia in chronic kidney disease; G89.4 Chronic pain syndrome; E83.39 Other disorders of phosphorus metabolism; F41.9 Anxiety disorder, unspecified; F31.9 Bipolar disorder, unspecified; E11.22 Type 2 diabetes mellitus with diabetic chronic kidney disease; F17.210 Nicotine dependence, cigarettes, uncomplicated; Z88.6 Allergy status to analgesic agent; Z99.2 Dependence on renal dialysis; Z91.041 Radiographic dye allergy status; Z79.899 Other long term (current) drug therapy; Z86.73 Personal history of transient ischemic attack (TIA), and cerebral infarction without residual deficits; Z86.718 Personal history of other venous thrombosis and embolism; Z87.442 Personal history of urinary calculi; Z91.5 Personal history of self-harm; Z86.010 Personal history of colon polyps; Z78.1 Physical restraint status
CPT/HCPCS: 0202U; 36415; 36558; 36600; 70450; 71045; 71046; 71250; 74018; 74150; 76770; 76937; 77001; 80048; 80053; 80069; 80074; 80202; 81001; 81050; 82140; 82248; 82550; 82565; 82784; 82803; 82947; 83516; 83520; 83605; 83735; 83880; 84100; 84132; 84145; 84156; 84165; 84166; 84443; 84484; 85014; 85018; 85025; 85027; 85610; 85651; 86038; 86140; 86256; 86317; 86334; 86335; 86713; 87040; 87077; 87086; 87186; 87449; 92523; 93005; 93010; 93306; 93308; 94760; 94762; 96365; 96366; 96367; 96372; 96375; 96376; 97110; 97110-CQ; 97140; 97162; 97166; 97530; 97530-CQ; 99285-25; A9270; C1751; G0480; J0572; J0610; J0692; J0696; J0881; J1450; J1644; J1650; J1815; J1940; J1956; J2060; J2310; J2405; J2543; J2765; J3010; J3370; J7030; J7040; J7050; J7799; P9046; U0004